=== PATIENT | female | born 1980 | race Caucasian/White ===

== ENCOUNTER 2018-01-15 23:57 | Emergency (ER) | payer MEDICARE, MEDICAID ==
[~2018-01-15] VITALS: Ht 162.6 cm; Wt 54.4 kg
[~2018-01-15 23:57] MED LIST: DESV50TA PO; DVL500TSR PO; PANT40TA PO; QUET400T3 PO; SRTR100T PO; birthcontrol PO
[2018-01-16] MEDS ORDERED: ATOR10TA66 (00:18)
[2018-01-16] MEDS ORDERED: DESV50TA18 (00:18)
[2018-01-16] MEDS ORDERED: ACYC200C (00:18)
[2018-01-16] MEDS ORDERED: TIZA4TAB3 (00:18)
[2018-01-16] MEDS ORDERED: DIVA500T15 (00:18)
[2018-01-16] MEDS ORDERED: NS IV 500 ML 500 ML IV ONE (00:20)
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
[2018-01-16 00:49] LABS: BASOPHILS % (AUTO) 0 % (0-10); EOSINOPHILS % (AUTO) 0 % (0-10); HEMATOCRIT 44 % (35-52); HEMOGLOBIN 15.1 G/DL (11.5-16.0); LYMPHOCYTES # (AUTO) 0.1 X 10^3 (1.0-4.0); LYMPHOCYTES % (AUTO) 1 % (12-44); MEAN CORPUSCULAR HEMOGLOBIN 30 PG (25-34); MEAN CORPUSCULAR HGB CONC 34 G/DL (32-36); MEAN CORPUSCULAR VOLUME 89 FL (80-99); MEAN PLATELET VOLUME 10.6 FL (7.4-10.4); MONOCYTES % (AUTO) 0 % (0-12); NEUTROPHILS # (AUTO) 10.2 X 10^3 (1.8-7.8); NEUTROPHILS % (AUTO) 99 % (42-75); PLATELET COUNT 257 10^3/uL (130-400); RED BLOOD COUNT 4.98 10^6/uL (4.35-5.85); RED CELL DISTRIBUTION WIDTH 12.7 % (10.0-14.5); WHITE BLOOD COUNT 10.3 10^3/uL (4.3-11.0)
[2018-01-16 01:00] LABS: BAND NEUTROPHILS 0 %; BASOPHILS % (MANUAL) 0 %; EOSINOPHILS % (MANUAL) 0 %; LYMPHOCYTES % (MANUAL) 0 %; MONOCYTES % (MANUAL) 1 %; NEUTROPHILS % (MANUAL) 99 %; SMUDGE CELLS SLIGHT; TOXIC GRANULATION/VACUOLAZATIO 1+
[2018-01-16 01:01] LABS: BILIRUBIN,URINE NEGATIVE (NEGATIVE); CLARITY,URINE CLEAR; COLOR,URINE YELLOW; GLUCOSE, URINE (UA) NEGATIVE (NEGATIVE); KETONES,URINE 1+ (NEGATIVE); LEUKOCYTE ESTERASE ,URINE 1+ (NEGATIVE); NITRITE,URINE NEGATIVE (NEGATIVE); PH,URINE 6.5 (5-9); PROTEIN,URINE 2+ (NEGATIVE); UROBILINOGEN,URINE 1 MG/DL (NORMAL)
[2018-01-16 01:06] LABS: BACTERIA,URINE TRACE /HPF; WBC,URINE RARE /HPF
[2018-01-16 01:07] LABS: ALANINE AMINOTRANSFERASE 19 U/L (0-55); ALBUMIN 3.8 GM/DL (3.2-4.5); ALKALINE PHOSPHATASE 65 U/L (40-136); BILIRUBIN,TOTAL 0.4 MG/DL (0.1-1.0); BUN/CREATININE RATIO 22; CALCIUM 9.1 MG/DL (8.5-10.1); CARBON DIOXIDE 23 MMOL/L (21-32); CHLORIDE 106 MMOL/L (98-107); CREATININE SERUM 0.69 MG/DL (0.60-1.30); GFR ESTIMATED > 60; GLUCOSE 116 MG/DL (70-105); POTASSIUM 3.4 MMOL/L (3.6-5.0); SODIUM 139 MMOL/L (135-145); TOTAL PROTEIN 6.5 GM/DL (6.4-8.2)
[2018-01-16 01:21] LABS: AMPHETAMINE SCREEN, URINE POSITIVE (NEGATIVE); BARBITURATE SCREEN URINE NEGATIVE (NEGATIVE); BENZODIAZEPINES SCREEN URINE NEGATIVE (NEGATIVE); CANNABINOID SCREEN, URINE POSITIVE (NEGATIVE); COCAINE SCREEN URINE NEGATIVE (NEGATIVE); METHADONE STAT NEGATIVE (NEGATIVE); METHAMPHETAMINE SCREEN URINE S POSITIVE (NEGATIVE); OPIATE SCREEN URINE NEGATIVE (NEGATIVE); OXYCODONE STAT NEGATIVE (NEGATIVE); PROPOXYPHENE STAT NEGATIVE (NEGATIVE); TRICYCLIC ANTIDEPRESSANTS SCRE NEGATIVE (NEGATIVE)
[2018-01-16 05:00] VITALS: BP 116/80
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
== END 2018-01-16 05:00 | disposition home or self-care (01) ==
LOC: EDUNIT# 23:57 → ER 23:58
DX: T74.21XA Adult sexual abuse, confirmed, initial encounter (principal); R41.82 Altered mental status, unspecified; F12.10 Cannabis abuse, uncomplicated; F31.9 Bipolar disorder, unspecified; F20.9 Schizophrenia, unspecified; F17.210 Nicotine dependence, cigarettes, uncomplicated; Z87.440 Personal history of urinary (tract) infections; Z80.1 Family history of malignant neoplasm of trachea, bronchus and lung; Z80.3 Family history of malignant neoplasm of breast
CPT/HCPCS: 36415; 70450; 72125; 80053; 80306; 80320; 81000; 84703; 85007; 85027; 86141; 96360

== ENCOUNTER → 2018-01-16 | Outpatient (CLI) | payer MEDICARE, MEDICAID ==
[~2018-01-16] MED LIST changes: +ACYC200C; +ATOR10TA66; +DESV50TA18; +DIVA500T15; +TIZA4TAB3
== END ==
LOC: FNS 02:30
PROVIDERS: ATTEND Emergency Medicine
DX: Z02.89 Encounter for other administrative examinations (principal)

== ENCOUNTER 2018-12-22 09:21 | Emergency (ER) | payer MEDICARE, MEDICAID ==
[~2018-12-22] VITALS: Ht 162.6 cm; Wt 54.5 kg
--- OUTSIDE RECORDS SUMMARY | 2018-12-22 09:25 | XMS REPORT | Clinical Summary ---
Author Author [facility] Organization [facility] Address Unknown Phone Unavailable Care Team Providers Care Photo Tech Name Role Phone Hugh Larios PCP Source Comments Some departments are not documenting in the electronic medical record. If you do not see the information that you expected, contact Release of Information in the Health Information Management department at [phone] for further assistance in locating additional records.[facility] Allergies Comments Active Allergy Reactions Severity Noted Date Codeine NAUSEA AND Low 09/30/2017 VOMITING Medications End Date Status Medication Sig Dispensed Refills Start Date Active desvenlafaxine(+) Take 50 mg by 0 (PRISTIQ) 50 mg tablet mouth daily. Active divalproex (DEPAKOTE ER) Take 500 mg 0 500 mg ER tablet by mouth twice daily. Take with food. Active atorvastatin (LIPITOR) 10 Take 10 mg by 0 mg tablet mouth daily. Active tiZANidine (ZANAFLEX) 4 Take 4-8 mg 0 mg tablet by mouth every 4 hours as needed. Active thiamine (VITAMIN B-1) Take 1 tablet 0 100 mg tablet by mouth 7 daily. Active folic acid (FOLVITE) 1 mg Take 1 tablet 30 tablet 1 tablet by mouth 7 daily. Active acyclovir (ZOVIRAX) 200 Take 1 120 capsule 0 mg capsule capsule by 8 mouth every 12 hours. Active MULTIVITAMIN PO Take 1 tablet 0 by mouth. 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 There are numerous juxtacortical, deep white matter, brainstem, and cerebellar white matter lesions, most of which are confluent. At least one new FLAIR hyperintense lesion within the right superior frontal gyrus (series 9 image 15). Diffuse FLAIR hyperintensity of the callosal septal interface. No enhancing lesion is seen. Diffusion-weighted imaging is not indicative of an acute or recent infarct. The major intracranial vascular flow-voids are unremarkable. There is mild mucosal thickening within the left sphenoid and ethmoid sinuses. No midline shift or mass effect. Cervical spine: The examination is limited secondary to repetitive patient motion. There are scattered STIR hyperintense lesions throughout the spinal cord as well as the upper thoracic spinal cord, most pronounced at the level of C3-C4. No definite enhancing lesion is seen. The vertebral body heights are maintained. There is mild degenerative disc disease at C5-C6 with mild degenerative endplate changes and disc space narrowing. The cervical cord is normal in size. L ast Assessment & Plan: She remains very severely disabled. Appears to get some relief from steroids. She will get Lemtrada in 2 weeks. She will receive steroids with the lemtrada on protocol. She needs a new power wheelchair with tilt and recline features to help her with positioning to perform all ADLs and to prevent pressure sores. In addition, she needs a hospital bed for positioning at night to prevent pressure sores. She needs a Van lift to help her get her wheelchair in and out of the van to allow her to leave her home. Moderate malnutrition 09/30/2017 Encounters Care Team Description Date Type Specialty Yudelka Gonsalez PHARMD Medication Management 12/09/2018 Telephone Neurology Juan Antonio Atkins [facility] current use of therapeutic drug; MS (multiple sclerosis) ([facility]) 12/04/2018 Orders Only Neurology from Last 3 Months Family History Medical History Relation Name Comments Cancer Father Cancer Mother Relation Name Status Comments Father Mother Social History Date Tobacco Use Types Packs/Day Years Used Current Every Day Smoker Cigarettes 1 Smokeless Tobacco: Never Used Alcohol Use Drinks/Week oz/Week Comments Yes 2 Shots of 1.2 liquor Sex Assigned at Date Recorded Not on file Industry Job Start Date Occupation Not on file Not on file Not on file Travel End Travel History Travel Start No recent travel history available. 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 Weight 48.7 kg (107 lb 6.4 oz) 12/25/2017 1:21 PM CONTINUING EDUCATION DIRECTOR Height 167.6 cm (5' 6") 12/25/2017 1:21 PM CONTINUING EDUCATION DIRECTOR Body Mass Index 17.33 Plan of Treatment Health Maintenance Due Date Last Done Comments PHYSICAL (COMPREHENSIVE) 1985 EXAM HIV SCREENING 1993 DTAP/TDAP VACCINES (1 - 1996 Tdap) CERVICAL CANCER SCREENING 2008 BREAST CANCER SCREENING 2018 INFLUENZA VACCINE 2018 10/27/2013 Procedures Comments Procedure Name Priority Date/Time Associated Diagnosis CBC AND DIFF Routine 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 use of therapeutic drug MS (multiple sclerosis) (HCC) from Last 3 Months Results * CBC AND DIFF (11/11/2018) White Blood Cells 6.7 [facility] RBC 4.85 [facility] Hemoglobin 14.1 [facility] Hematocrit 42.0 [facility] MCV 87 [facility] MCH 29.1 [facility] MCHC 33.6 [facility] Platelet Count 357 [facility] MPV n/a [facility] RDW 14.2 [facility] Neutrophils 78 [facility] Absolute Neutrophil Count 5.2 [facility] Lymphocytes 12 [facility] Absolute Lymph Count 0.8 [facility] Monocytes 8 [facility] Absolute Monocyte Count 0.5 [facility] Eosinophil 2 [facility] Absolute Eosinophil Count 0.1 [facility] Basophils 0 [facility] Absolute Basophil Count 0.0 [facility] Atypical Lym [facility] Metamyelocyte [facility] Myelocyte [facility] Promyelocyte [facility] Blast [facility] RBC Morph [facility] WBC Morphology [facility] Specimen Blood - Blood Narrative Performed At Performing Organization Address City/State/Zipcode Phone Number [facility] [address] [place] [address] from Last 3 Months Insurance Payer Benefit Subscriber ID Type Phone Address Plan / Group MEDICARE MEDICARE xxxxxxxxxx Medicare PART A AND B Advance Directives Patient has advance care planning documents, and code status on file. For more information, please contact: [facility] [address] [place] [address] Date Inactivated Comments Code Status Date Activated 10/10/2017 5:49 PM Full Code 10/04/2017 2:13 PM Provider has discussed Code Status Yes w/Patient or Family? 10/04/2017 2:13 PM Full Code 09/30/2017 8:45 PM Provider has discussed Code Status Yes w/Patient or Family? 09/30/2017 8:45 PM Full Code 09/30/2017 4:36 PM Provider has discussed Code Status No, more discussion w/Patient or Family? needed
--- OUTSIDE RECORDS SUMMARY | 2018-12-22 09:25 | XMS REPORT ---
Author Author AKILA GONZALEZ Organization [employer] Address Unknown Phone Unavailable Care Team Providers Care Residential Property Tax Appraiser Name Role Phone AKILA GONZALEZ CP Unavailable Allergies No Known Allergies Problems Problem Type Condition ICD-9 Code Onset Dates Condition Status Problem Schizoaffective disorder, unspecified 295.70 Active Problem Nondependent cannabis abuse, unspecified 305.20 Active Problem Borderline personality disorder 301.83 Active Problem Other general counseling and advice for contraceptive management V25.09 Active Problem Encounter for long-term (current) use of other medications V58.69 Active Medications Medication Code System Code Instructions Start Date End Date Status Dosage Daily Value Multivitamin [facility] 2001 40913-21499 Orally Once a day Jun 28, 2015 1 tablet Results No Known Results Summary Purpose [employer] Submission
--- OUTSIDE RECORDS SUMMARY | 2018-12-22 09:25 | XMS REPORT | Encounter Summary ---
Author Author [facility] Organization [facility] Address Unknown Phone Unavailable Care Team Providers Care Forest Examiner Name Role Phone Hugh Larios DO PCP Encounter Details Care Team Description Date Type Department Juan Antonio Atkins intermediate current use of therapeutic drug; MS (multiple sclerosis) (HCC) 12/04/2018 Orders Only [facility] [address] [place] [id number] Social History Date Tobacco Use Types Packs/Day Years Used Current Every Day Smoker Cigarettes 1 Smokeless Tobacco: Never Used Alcohol Use Drinks/Week oz/Week Comments Yes 2 Shots of 1.2 liquor Sex Assigned at Date Recorded Not on file Industry Job Start Date Occupation Not on file Not on file Not on file Travel End Travel History Travel Start No recent travel history available. as of this encounter Functional Status Date of Assessment Functional Status Response 01/09/2018 Does the patient have a hearing impairment: No 01/09/2018 Does the patient have a visual impairment: Yes 01/09/2018 Does the patient have impaired ambulation: Yes 01/09/2018 Does the patient have an activity of daily living Yes (ADL) impairment: 01/09/2018 Does the patient have an instrumental activity of Yes daily living (IADL) impairment: Date of Assessment Cognitive Status Response 01/09/2018 Does the patient have a cognitive impairment: No as of this encounter Plan of Treatment Not on fileas of this encounter Procedures Comments Procedure Name Priority Date/Time Associated Diagnosis CBC AND DIFF Routine 11/11/2018 intermediate current use of therapeutic drug MS (multiple sclerosis) (HCC) in this encounter Results * CBC AND DIFF (11/11/2018) White [...] At Performing Organization Address City/State/Zipcode Phone Number [facility] [address] [place] [address] in this encounter Visit 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
--- OUTSIDE RECORDS SUMMARY | 2018-12-22 09:25 | XMS REPORT ---
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 Active Problem Borderline personality disorder 301.83 Active Assessment Dizziness R42 Active Problem Other general counseling and advice for contraceptive management V25.09 Active Problem Encounter for long-term (current) use of other medications V58.69 Active Medications No Known Medications Procedures Procedure Coding System Code Date Office Visit, Est Pt., Level 2 CPT-4 54267 Oct 11, 2015 Vital Signs Date/Time: Oct 11, 2015 Cardiac Monitoring Heart Rate 88 bpm Weight 139 lbs Height 66 in BMI 22.43 Index Blood Pressure Diastolic 76 mmHg Blood Pressure Systolic 128 mmHg Results No Known Results Summary Purpose [employer] Submission
--- OUTSIDE RECORDS SUMMARY | 2018-12-22 09:25 | XMS REPORT | Encounter Summary ---
Author Author [facility] Organization [facility] Address Unknown Phone Unavailable Care Team Providers Care Head Filter Press Tender Name Role Phone Hugh Larios DO PCP Reason for Visit * Reason Comments Medication Management Encounter Details Care Team Description Date Type Department Yudelka Gonsalez, ESPERANZAD Medication Management 12/09/2018 Telephone [facility] [address] [place] [phone] Social History Date Tobacco Use Types [...] cognitive impairment: No as of this encounter Progress Notes * Yudelka Gonsalez, ESPERANZAD - 12/09/2018 12:12 PM PSYCH THERAPIST Patient due for upcoming Lemtrada infusion (second dose). However, patient has not been seen since last Lemtrada infusion (11/2017), nor does she have an upcoming appointment scheduled. To determine if a second dose of Lemtrada is appropriate, patient needs to be seen in clinic by . Attempted to contact patient multiple times. Patient has not responded to any telephone calls. Will no longer follow up with patient at this time unless patient contacts our clinic. 11/26:no answer, unable to leave voicemail-mailbox full 11/28: no answer, unable to leave voicemail-mailbox full 12/01: no answer; left voicemail 12/03: no answer; left voicemail 12/09:no answer left voicemail Yudelka Gonsalez PHARMD H THERAPIST in this encounter Plan of Treatment Not on fileas of this encounter Visit Diagnoses Not on filein this encounter
--- OUTSIDE RECORDS SUMMARY | 2018-12-22 09:26 | XMS REPORT ---
Author Author AKILA GONZALEZ Organization [employer] Address Unknown Phone Unavailable Care Team Providers Care Minister Of Religion Name Role Phone AKILA GONZALEZ CP Unavailable Allergies No Known Allergies Problems Problem Type Condition Code Onset Dates Condition Status Assessment Pancreatitis K85.9 Active Problem Schizoaffective disorder, unspecified 295.70 Active Problem Nondependent cannabis abuse, unspecified 305.20 Active Problem Borderline personality disorder 301.83 Active Assessment Fall in (into) shower or empty bathtub, initial encounter W18.2XXA Active Assessment Unsteady gait R26.81 Active Problem Other general counseling and advice for contraceptive management V25.09 Active Problem Encounter for long-term (current) use of other medications V58.69 Active Medications No Known Medications Procedures Procedure Coding System Code Date VENIPUNCT, ROUTINE* CPT-4 49993 Oct 04, 2015 COMPREHEN METABOLIC PANEL CPT-4 04061 Oct 04, 2015 Office Visit, Est Pt., Level 2 CPT-4 90263 Oct 04, 2015 ASSAY, DIPROPYLACETIC ACID CPT-4 79287 Oct 04, 2015 COMPLETE CBC W/AUTO DIFF WBC CPT-4 16138 Oct 04, 2015 Vital Signs Date/Time: Oct 04, 2015 Cardiac Monitoring Heart Rate 88 bpm Weight 140 lbs Height 66 in BMI 22.59 Index Blood Pressure Diastolic 84 mmHg Blood Pressure Systolic 120 mmHg Results Name Result Date Reference Range Unit Abnormality Flag ROUTINE VENIPUNCTURE Summary Purpose [employer] Submission
[2018-12-22] MEDS ORDERED: LORazepam INJ 2 MG/ML (ATIVAN) VIAL ONE (09:27)
[2018-12-22 10:06] LABS: BILIRUBIN,URINE 1+ (NEGATIVE); CLARITY,URINE CLEAR; COLOR,URINE AMBER; GLUCOSE, URINE (UA) NEGATIVE (NEGATIVE); KETONES,URINE 3+ (NEGATIVE); LEUKOCYTE ESTERASE ,URINE NEGATIVE (NEGATIVE); NITRITE,URINE NEGATIVE (NEGATIVE); PH,URINE 5 (5-9); PROTEIN,URINE 2+ (NEGATIVE); UROBILINOGEN,URINE 1 MG/DL (NORMAL)
[2018-12-22 10:07] LABS: BASOPHILS % (AUTO) 0 % (0-10); EOSINOPHILS % (AUTO) 0 % (0-10); HEMATOCRIT 40 % (35-52); HEMOGLOBIN 13.3 G/DL (11.5-16.0); LYMPHOCYTES # (AUTO) 0.7 X 10^3 (1.0-4.0); LYMPHOCYTES % (AUTO) 5 % (12-44); MEAN CORPUSCULAR HEMOGLOBIN 29 PG (25-34); MEAN CORPUSCULAR HGB CONC 34 G/DL (32-36); MEAN CORPUSCULAR VOLUME 86 FL (80-99); MEAN PLATELET VOLUME 10.5 FL (7.4-10.4); MONOCYTES # (AUTO) 0.9 X 10^3 (0.0-1.0); MONOCYTES % (AUTO) 6 % (0-12); NEUTROPHILS # (AUTO) 12.5 X 10^3 (1.8-7.8); NEUTROPHILS % (AUTO) 89 % (42-75); PLATELET COUNT 295 10^3/uL (130-400); RED CELL DISTRIBUTION WIDTH 12.9 % (10.0-14.5)
[2018-12-22 10:13] LABS: BACTERIA,URINE TRACE /HPF; WBC,URINE 0-2 /HPF
[2018-12-22 10:21] LABS: AMPHETAMINE SCREEN, URINE POSITIVE (NEGATIVE); BARBITURATE SCREEN URINE NEGATIVE (NEGATIVE); BENZODIAZEPINES SCREEN URINE NEGATIVE (NEGATIVE); CANNABINOID SCREEN, URINE NEGATIVE (NEGATIVE); COCAINE SCREEN URINE NEGATIVE (NEGATIVE); METHADONE STAT NEGATIVE (NEGATIVE); METHAMPHETAMINE SCREEN URINE S POSITIVE (NEGATIVE); OPIATE SCREEN URINE NEGATIVE (NEGATIVE); OXYCODONE STAT NEGATIVE (NEGATIVE); PROPOXYPHENE STAT NEGATIVE (NEGATIVE); TRICYCLIC ANTIDEPRESSANTS SCRE NEGATIVE (NEGATIVE)
[2018-12-22 10:29] LABS: ALANINE AMINOTRANSFERASE 21 U/L (0-55); ALBUMIN 3.6 GM/DL (3.2-4.5); ALKALINE PHOSPHATASE 90 U/L (40-136); BILIRUBIN,TOTAL 0.6 MG/DL (0.1-1.0); BUN/CREATININE RATIO 14; CALCIUM 9.3 MG/DL (8.5-10.1); CARBON DIOXIDE 21 MMOL/L (21-32); CHLORIDE 108 MMOL/L (98-107); CREATINE KINASE 910 U/L (29-168); CREATININE SERUM 0.77 MG/DL (0.60-1.30); GFR ESTIMATED > 60; GLUCOSE 87 MG/DL (70-105); MAGNESIUM 1.6 MG/DL (1.8-2.4); POTASSIUM 3.7 MMOL/L (3.6-5.0); SODIUM 141 MMOL/L (135-145); TOTAL PROTEIN 6.7 GM/DL (6.4-8.2)
[2018-12-22 10:38] LABS: BAND NEUTROPHILS 2 %; BASOPHILS % (MANUAL) 0 %; EOSINOPHILS % (MANUAL) 0 %; LYMPHOCYTES % (MANUAL) 3 %; MONOCYTES % (MANUAL) 4 %; NEUTROPHILS % (MANUAL) 91 %; RBC MORPH NORMAL
[2018-12-22 10:51] LABS: TSH (THYROID ANALYZER) 0.62 UIU/ML (0.35-4.94)
[2018-12-22] MEDS ORDERED: NS IV 1000 ML 1,000 ML IV ONE ×2 (10:58→14:02)
[2018-12-22] MEDS ORDERED: LORazepam INJ 2 MG/ML (ATIVAN) VIAL IVP ONE (11:00)
--- NOTE | 2018-12-22 11:37 | Diagnostic Imaging Report ---
PROCEDURE: CT head and CT cervical spine without contrast. TECHNIQUE: Multiple contiguous axial images were obtained through the brain and cervical spine without the use of intravenous contrast. Sagittal and coronal reformations through the cervical spine were then performed. INDICATION: Fall. Head and neck pain. COMPARISON: CT head and cervical spine without contrast 01/16/2018. FINDINGS: CT HEAD: Examination limited by motion artifact. Mild to moderate generalized cerebral and cerebellar parenchymal volume loss is greater than expected for age. There is also increasing periventricular low attenuation throughout both cerebral hemispheres. This may have progressed since the prior exam in the left temporal lobe. No CT evidence of a territorial infarction. No hydrocephalus or extra-axial fluid collections. No intracranial hemorrhage. No fractures are identified. There is mild mucosal thickening in ethmoid and maxillary sinuses. Small air-fluid level in the right maxillary sinus. The mastoids are clear. CT CERVICAL SPINE: Normal alignment. Vertebral body heights preserved. Moderate degenerative endplate changes. No fractures. No high-grade spinal canal narrowing is evident on this non-intrathecal contrast exam. The visualized paravertebral soft tissues are unremarkable. IMPRESSION: 1. No intracranial hemorrhage. 2. No cervical spine fractures. 3. Low attenuation changes in the deep white matter are compatible with reported history of multiple sclerosis. These may have progressed in the left temporal lobe since prior exam. This could be better evaluated with MRI. 4. Mild mucosal thickening in the ethmoid and maxillary sinuses. There is also a small air-fluid level in the right maxillary sinus. No maxillofacial fractures are identified on this nondedicated exam. If there is a concern for a facial fracture, recommend dedicated maxillofacial CT. Dictated by: Dictated on workstation # [id number]
[2018-12-22] MEDS ORDERED: fentaNYL INJECTION 100 MCG/2 ML AMP ONE (12:00)
[2018-12-22] MEDS ORDERED: NS 250 ML (IVPB) BAG IV ONE (12:00)
[2018-12-22] MEDS ORDERED: IOHEXOL 350 MG/ML 100 ML (OMNIPAQUE 350) VIAL IV ONE (12:00)
[2018-12-22] MEDS ORDERED: RECEIVED CONTRAST (Hold Metformin) IV SCH (12:00)
[2018-12-22] MEDS ORDERED: fentaNYL INJECTION 100 MCG/2 ML AMP IVP ONE (12:15)
--- NOTE | 2018-12-22 12:49 | Diagnostic Imaging Report ---
PROCEDURE: CT chest, abdomen, and pelvis with contrast. TECHNIQUE: Multiple contiguous axial images were obtained through the chest, abdomen, and pelvis after the administration of intravenous contrast. INDICATION: Fall with pain. COMPARISON: 08/09/2014. FINDINGS: CHEST: There are nodular infiltrates bilaterally involving the right middle and right greater than left lower lobes. There is some regional bronchial wall thickening. The findings suggest atypical infection such as mycobacteria or infectious bronchiolitis. No gloria alveolar lobar consolidation. There is no evidence for abscess or empyema. There were no findings of lung contusion or pulmonary laceration. The aorta is intact. There is no mediastinal hematoma and no thoracic adenopathy. The sternum and manubrium are intact. No fracture deformity is identified. ABDOMEN/PELVIS: There is no hemoperitoneum. There are no findings of solid or hollow visceral injury. The liver, spleen, gallbladder, adrenals, and pancreas are unremarkable. The unobstructed kidneys appear unremarkable. There is no evidence for organ laceration or contusion. The reconstruction views reveal the thoracolumbar body heights to be maintained and the alignment is anatomic. The osseous structures of the pelvis are intact. There is no contrast extravasation. No pneumatosis or free gas. There is colonic constipation. The urinary bladder is decompressed around a Chambers with no urinary contrast extravasation. IMPRESSION: 1. No findings of thoracic abdominal or pelvic post traumatic sequelae. 2. Patchy bilateral nodular pulmonary infiltrates as discussed. The chest is otherwise unremarkable. 3. The abdominal/pelvic portion reveals constipation without hemorrhage, fracture, obstruction, inflammatory process, or acute/post traumatic sequelae. Dictated by: Dictated on workstation # [id number]
[2018-12-22] MEDS ORDERED: AZITHROMYCIN INJECTION 500 MG in NS (IVPB) 250 ML IV ONE (13:30)
[2018-12-22] MEDS ORDERED: cefTRIAXone FOR IV USE 1,000 MG in WATER (STERILE) FOR INJECTION 10 ML IV ONE (13:30)
[2018-12-22] MEDS ORDERED: D5 NS 1000 ML IV SOLUTION 1,000 ML IV SCH (14:15)
--- NOTE | 2018-12-22 14:24 | ED General ---
General Chief Complaint: General Problems/Pain Stated Complaint: FALL Nursing Triage Note: PT BROUGHT IN BY EMS WITH COMPLAINT OF MULTIPLE FALLS, INCREASING FALLS, AND INCREASING PAIN. PT FELL LAST NIGHT AND HIT FACE. PT HAS MS, BUT DOES NOT TAKE MEDS. PT USES METH AND MARIJUANA. Nursing Sepsis Screen: No Definite Risk Source of Information: Patient, EMS, Family, Old Records Exam Limitations: No Limitations History of Present Illness Date Seen by Provider: Dec 22, 2018 Time Seen by Provider: 09:22 Initial Comments This 38-year-old woman is brought to the emergency room via EMS because of increasing falls over the past few days. She has MS and falls frequently according to her . She also complains of pain over her left hip. Patient reportedly fell last night and struck her face. She has bilateral "black eyes". Patient also reportedly and admittedly uses methamphetamines and marijuana. She and her have used recently. Patient is notably tachycardic. She seems irritable on exam. reports her sluggish and slurred speech is her baseline due to MS. Patient is noted to have numerous small faint scattered bruises. Allergies and Home Medications Allergies Coded Allergies: No Known Drug Allergies (Unverified , 04/26/12) Patient Home Medication List Home Medication List Reviewed: Yes Review of Systems Review of Systems Constitutional: no symptoms reported EENTM: see HPI Respiratory: no symptoms reported Cardiovascular: see HPI Gastrointestinal: no symptoms reported Genitourinary: no symptoms reported : No Musculoskeletal: see HPI Skin: see HPI Psychiatric/Neurological: See HPI Hematologic/Lymphatic: No Symptoms Reported Immunological/Allergic: no symptoms reported Past Owbkblv-Axijgk-Ilwwcg Hx Past Med/Social Hx: Reviewed and Corrections made Patient Social History Alcohol Use: Denies Use Recreational Drug Use: Yes (SMOKES 1/2 PPD) Drug of Choice: MARIJUANA, METH Smoking Status: Current Everyday Smoker Type Used: Cigarettes Recent Foreign Travel: No Contact w/Someone Who Travel: No Recent Infectious Disease Expo: No Immunizations Up To Date Tetanus Booster (TDap): Less than 5yrs Seasonal Allergies Seasonal Allergies: No Past Medical History Surgeries: Yes (l shoulder) Respiratory: Yes (snorts methamphetamines, smokes marijuana) Cardiac: No Neurological: Yes Multiple Sclerosis (with speech and motor deficits) Reproductive Disorders: No Genitourinary: No UTI-Chronic Gastrointestinal: Yes Pancreatitis Musculoskeletal: No (WRIST WHEN YOUNGER) Fractures Endocrine: No HEENT: No Cancer: No Psychosocial: Yes Bipolar, Schizophrenia Integumentary: Yes (ACNE CAUSED BY MIRENA IUD) Blood Disorders: No Adverse Reaction/Blood Tranf: No Family Medical History Cancer (LUNG) 03 FATHER, Onset:Unknown (LUNG) PATERNAL GRANDMOTHER, Onset:Unknown (BREAST) Visual impairment MATERNAL GRANDMOTHER, Onset:Unknown (MACULAR DEGENERATION) Physical Exam Vital Signs Vital Signs - First Documented 12/22/18 09:24 Temp 98.1 Pulse 126 Resp 20 B/P (MAP) 116/98 (104) Pulse Ox 95 O2 Delivery Room Air Capillary Refill : Less Than 3 Seconds Height, Weight, BMI Height: 5'4.00" Weight: 120lbs. 0.8oz. [id number]; 16.2 BMI Method:Stated General Appearance: WD/WN, Mild Distress, Thin HEENT: PERRL/EOMI, Other (mucous membranes are very dry. Dark ecchymosis of the eyelids and periorbital region bilaterally) Neck: Normal Inspection, Non Tender Respiratory: Lungs Clear, Normal Breath Sounds, No Accessory Muscle Use, No Respiratory Distress Cardiovascular: No Edema, No Murmur, Tachycardia Gastrointestinal: Non Tender, Soft Back: Normal Inspection, No Vertebral Tenderness Extremity: Normal Capillary Refill, Other (tenderness over the greater trochanter of the left hip. Patient prefers thighs flexed in the position. Scattered bruising noted on the extremities) Neurologic/Psychiatric: Alert, Oriented x3, Other (patient is irritable. She has speech and motor deficits due to MS. She has hypersensitivity to stimulus and is having difficulty being still for assessment, IV, etc.) Skin: Normal Color, Warm/Dry, Ecchymosis, Other (scattered ecchymosis. There are a few scabbed areas on the buttocks) Focused Exam Lactate Level 12/22/18 14:06: Lactic Acid Level 0.83 Lactic Acid Level Laboratory Tests Test 12/22/18 14:06 Lactic Acid Level 0.83 MMOL/L (0.50-2.00) Progress/Results/Core Measures Suspected Sepsis Recent Fever Within 48 Hours: No Infection Criteria Present: None New/Unexplained Altered Menta: No Sepsis Screen: No Definite Risk SIRS Temperature:98.1 Pulse: 126 Respiratory Rate: 20 Laboratory Tests 12/22/18 10:02: White Blood Count 14.0H Blood Pressure 116 /98 Mean: 104 12/22/18 14:06: Lactic Acid Level 0.83 Laboratory Tests 12/22/18 10:02: Creatinine 0.77, Platelet Count 295, Total Bilirubin 0.6 Results/Orders Lab Results Laboratory Tests Test 12/22/18 10:02 12/22/18 14:03 12/22/18 14:06 12/22/18 14:13 Range/Units White Blood Count 14.0 H 4.3-11.0 10^3/uL Red Blood Count 4.61 4.35-5.85 10^6/uL Hemoglobin 13.3 11.5-16.0 G/DL Hematocrit 40 35-52 % Mean Corpuscular Volume 86 80-99 FL Mean Corpuscular Hemoglobin 29 25-34 PG Mean Corpuscular Hemoglobin Concent 34 32-36 G/DL Red Cell Distribution Width 12.9 10.0-14.5 % Platelet Count 295 130-400 10^3/uL Mean Platelet Volume 10.5 H 7.4-10.4 FL Neutrophils (%) (Auto) 89 H 42-75 % Lymphocytes (%) (Auto) 5 L 12-44 % Monocytes (%) (Auto) 6 0-12 % Eosinophils (%) (Auto) 0 0-10 % Basophils (%) (Auto) 0 0-10 % Neutrophils # (Auto) 12.5 H 1.8-7.8 X 10^3 Lymphocytes # (Auto) 0.7 L 1.0-4.0 X 10^3 Monocytes # (Auto) 0.9 0.0-1.0 X 10^3 Eosinophils # (Auto) 0.0 0.0-0.3 10^3/uL Basophils # (Auto) 0.0 0.0-0.1 10^3/uL Neutrophils % (Manual) 91 % Lymphocytes % (Manual) 3 % Monocytes % (Manual) 4 % Eosinophils % (Manual) 0 % Basophils % (Manual) 0 % Band Neutrophils 2 % Blood Morphology Comment NORMAL Urine Color KARYNA H Urine Clarity CLEAR Urine pH 5 5-9 Urine Specific [place] 1.025 H 1.016-1.022 Urine Protein 2+ H NEGATIVE Urine Glucose (UA) NEGATIVE NEGATIVE Urine Ketones 3+ H NEGATIVE Urine Nitrite NEGATIVE NEGATIVE Urine Bilirubin 1+ H NEGATIVE Urine Urobilinogen 1 NORMAL MG/DL Urine Leukocyte Esterase NEGATIVE NEGATIVE Urine RBC (Auto) NEGATIVE NEGATIVE Urine RBC NONE /HPF Urine WBC 0-2 /HPF Urine Squamous Epithelial Cells 2-5 /HPF Urine Crystals NONE /LPF Urine Bacteria TRACE /HPF Urine Casts NONE /LPF Urine Mucus MODERATE H /LPF Urine Culture Indicated NO Sodium Level 141 135-145 MMOL/L Potassium Level 3.7 3.6-5.0 MMOL/L Chloride Level 108 H 98-107 MMOL/L Carbon Dioxide Level 21 21-32 MMOL/L Anion Gap 12 5-14 MMOL/L Blood Urea Nitrogen 11 7-18 MG/DL Creatinine 0.77 0.60-1.30 MG/DL Estimat Glomerular Filtration Rate > 60 BUN/Creatinine Ratio 14 Glucose Level 87 70-105 MG/DL Calcium Level 9.3 8.5-10.1 MG/DL Corrected Calcium 9.6 8.5-10.1 MG/DL Magnesium Level 1.6 L 1.8-2.4 MG/DL Total Bilirubin 0.6 0.1-1.0 MG/DL Aspartate Amino Transf (AST/SGOT) 26 5-34 U/L Alanine Aminotransferase (ALT/SGPT) 21 0-55 U/L Alkaline Phosphatase 90 40-136 U/L Total Creatine Kinase 910 H 29-168 U/L Total Protein 6.7 6.4-8.2 GM/DL Albumin 3.6 3.2-4.5 GM/DL TSH [place] Testing 0.62 0.35-4.94 UIU/ML Urine Opiates Screen NEGATIVE NEGATIVE Urine Oxycodone Screen NEGATIVE NEGATIVE Urine Methadone Screen NEGATIVE NEGATIVE Urine Propoxyphene Screen NEGATIVE NEGATIVE Urine Barbiturates Screen NEGATIVE NEGATIVE Ur Tricyclic Antidepressants Screen NEGATIVE NEGATIVE Urine Phencyclidine Screen NEGATIVE NEGATIVE Urine Amphetamines Screen POSITIVE H NEGATIVE Urine Methamphetamines Screen POSITIVE H NEGATIVE Urine Benzodiazepines Screen NEGATIVE NEGATIVE Urine Cocaine Screen NEGATIVE NEGATIVE Urine Cannabinoids Screen NEGATIVE NEGATIVE Serum Alcohol < 10 <10 MG/DL Glucometer 71 70-110 MG/DL Lactic Acid Level 0.83 0.50-2.00 MMOL/L Valproic Acid (Depakene) Level < 2.0 L 50.0-100.0 UG/ML My Orders Orders - STEPHANIE WOODWARD MD Lorazepam Injection (Ativan Injection) (12/22/18 09:27) Alcohol (12/22/18 09:37) Cbc With Automated Diff (12/22/18 09:37) Comprehensive Metabolic Panel (12/22/18 09:37) Creatine Kinase (12/22/18 09:37) Drug Screen Stat (Urine) (12/22/18 09:37) Magnesium (12/22/18 09:37) Thyroid Analyzer (12/22/18 09:37) Ua Culture If Indicated (12/22/18 09:37) Saline Lock/Iv-Start (12/22/18 09:37) Ct Head/Cervical Spine Wo (12/22/18 09:37) Manual Differential (12/22/18 10:02) Saline Lock/Iv-Start (12/22/18 10:58) Ns Iv 1000 Ml (Sodium Chloride 0.9%) (12/22/18 10:58) Lorazepam Injection (Ativan Injection) (12/22/18 11:00) Ct Chest/Abdomen/Pelvis W (12/22/18 10:58) Iohexol Injection (Omnipaque 350 Mg/Ml 1 (12/22/18 12:00) Di Iv Start (Assessment) .IV start (12/22/18 11:48) Contrast Received (Contrast Received) (12/22/18 12:00) Ns (Ivpb) (Sodium Chloride 0.9%) (12/22/18 12:00) Fentanyl Injection (Sublimaze Injection (12/22/18 12:00) Fentanyl Injection (Sublimaze Injection (12/22/18 12:15) Blood Culture (12/22/18 13:24) Lactic Acid Analyzer (12/22/18 13:24) Ceftriaxone For Iv Use (Rocephin For I (12/22/18 13:30) Azithromycin Injection (Zithromax Inject (12/22/18 13:30) Valproic Acid (12/22/18 13:31) Saline Lock/Iv-Start (12/22/18 14:02) Ns Iv 1000 Ml (Sodium Chloride 0.9%) (12/22/18 14:02) D5 Ns 1000 Ml Iv Solution (Dextrose 5%/0 (12/22/18 14:15) Accucheck Stat ONCE (12/22/18 14:07) Medications Given in ED Current Medications Medications Dose Ordered Sig/Vincent Route Start Time Stop Time Status Last Admin Dose Admin Azithromycin 500 mg/Sodium Chloride 250 ml @ 250 mls/hr ONCE ONCE IV 12/22/18 13:30 12/22/18 14:29 DC 12/22/18 14:25 250 MLS/HR Ceftriaxone Sodium 1000 mg/ Sterile Water 10 ml @ 200 mls/hr ONCE ONCE IV 12/22/18 13:30 12/22/18 13:32 DC 12/22/18 14:22 200 MLS/HR Fentanyl Citrate 50 mcg ONCE ONCE IVP 12/22/18 12:15 12/22/18 12:16 DC 12/22/18 12:05 50 MCG Lorazepam 1 mg ONCE ONCE IVP 12/22/18 11:00 12/22/18 11:01 DC 12/22/18 11:10 1 MG Lorazepam 2 mg STK-MED ONCE .ROUTE 12/22/18 09:27 12/22/18 09:33 DC 12/22/18 09:30 1 MG Sodium Chloride 1,000 ml @ 0 mls/hr Q0M ONCE IV 12/22/18 10:58 12/22/18 14:07 DC 12/22/18 11:10 1,000 MLS/HR Vital Signs/I&O 12/22/18 09:24 Temp 98.1 Pulse 126 Resp 20 B/P (MAP) 116/98 (104) Pulse Ox 95 O2 Delivery Room Air Capillary Refill : Less Than 3 Seconds Blood Pressure Mean: 104 Progress Note : Progress Note Patient was seen and assessed upon arrival. Initial assessment was difficult as patient was irritable and would not be still for exam. 2 doses of Ativan 1 mg IV were administered to help control her behavior for CT scans. Patient removed 2 IVs and access had to be reestablished. CT of the head and C-spine and CT of the chest, abdomen and pelvis with contrast were obtained. No acute injuries were identified. Patient did have infiltrates on the CT of the chest suggestive of atypical pneumonia. Blood culture and lactic acid were obtained. Patient was treated with Rocephin and azithromycin. She was also found to have rhabdomyolysis. 2 L of IV normal saline were infused. Patient became more somnolent during the latter half of her ER stay. Fingerstick blood sugar was found in the 70s. A third liter of IV fluid was started using D5 normal saline to help maintain blood sugar. Ultimately, patient required transfer because of bed availability at [facility]. She elected [facility] although there was some debate about this between the patient and her as she has received much of her care at [facility]. also at one point wanted her transferred to due to multiple sclerosis. Based on her current condition and her knees, I could not justify transferring to over a closer facility. Patient's vital signs remained stable. Her tachycardia improved. She became rather somnolent before discharge but was alert to voice. Fentanyl was given before CT scan to control pain. Patient was prepared for admission to [facility]. However, discharges did not come through in a timely fashion and bed availability was uncertain. Patient was ultimately transferred to [facility]. Diagnostic Imaging Diagonstic Imaging: CT Plain Films/CT/US/NM/MRI: c-spine, head Comments CT head and cervical spine viewed by me and report reviewed. See report below: NAME: KRISTIE GRIMALDO MED REC#: [id number] PT STATUS: REG ER : 1980 PHYSICIAN: STEPHANIE WOODWARD MD ADMIT DATE: 12/22/18/ER Draft Date of Exam:12/22/18 CT HEAD/CERVICAL SPINE WO PROCEDURE: CT head and CT cervical spine without contrast. TECHNIQUE: Multiple contiguous axial images were obtained through the brain and cervical spine without the use of intravenous contrast. Sagittal and coronal reformations through the cervical spine were then performed. INDICATION: Fall. Head and neck pain. COMPARISON: CT head and cervical spine without contrast 01/16/2018. FINDINGS: CT HEAD: Examination limited by motion artifact. Mild to moderate generalized cerebral and cerebellar parenchymal volume loss is greater than expected for age. There is also increasing periventricular low attenuation throughout both cerebral hemispheres. This may have progressed since the prior exam in the left temporal lobe. No CT evidence of a territorial infarction. No hydrocephalus or extra-axial fluid collections. No intracranial hemorrhage. No fractures are identified. There is mild mucosal thickening in ethmoid and maxillary sinuses. Small air-fluid level in the right maxillary sinus. The mastoids are clear. CT CERVICAL SPINE: Normal alignment. Vertebral body heights preserved. Moderate degenerative endplate changes. No fractures. No high-grade spinal canal narrowing is evident on this non-intrathecal contrast exam. The visualized paravertebral soft tissues are unremarkable. IMPRESSION: 1. No intracranial hemorrhage. 2. No cervical spine fractures. 3. Low attenuation changes in the deep white matter are compatible with reported history of multiple sclerosis. These may have progressed in the left temporal lobe since prior exam. This could be better evaluated with MRI. 4. Mild mucosal thickening in the ethmoid and maxillary sinuses. There is also a small air-fluid level in the right maxillary sinus. No maxillofacial fractures are identified on this nondedicated exam. If there is a concern for a facial fracture, recommend dedicated maxillofacial CT. Dictated on workstation # [id number] Dict: 12/22/18 1120 Trans: 12/22/18 1136 [id number] Interpreted by: PAWEL CAMPOS MD Diagonstic Imaging: CT Plain Films/CT/US/NM/MRI: chest, abdomen, pelvis Comments CT chest, abdomen and pelvis viewed by me and report reviewed. See report below : NAME: KRISTIE GRIMALDO [facility] REC#: [id number] PT STATUS: REG ER : 1980 PHYSICIAN: STEPHANIE WOODWARD MD ADMIT DATE: 12/22/18/ER Draft Date of Exam:12/22/18 CT CHEST/ABDOMEN/PELVIS W PROCEDURE: CT chest, abdomen, and pelvis with contrast. TECHNIQUE: Multiple contiguous axial images were obtained through the chest, abdomen, and pelvis after the administration of intravenous contrast. INDICATION: Fall with pain. COMPARISON: 08/09/2014. FINDINGS: CHEST: There are nodular infiltrates bilaterally involving the right middle and right greater than left lower lobes. There is some regional bronchial wall thickening. The findings suggest atypical infection such as mycobacteria or infectious bronchiolitis. No gloria alveolar lobar consolidation. There is no evidence for abscess or empyema. There were no findings of lung contusion or pulmonary laceration. The aorta is intact. There is no mediastinal hematoma and no thoracic adenopathy. The sternum and manubrium are intact. No fracture deformity is identified. ABDOMEN/PELVIS: There is no hemoperitoneum. There are no findings of solid or hollow visceral injury. The liver, spleen, gallbladder, adrenals, and pancreas are unremarkable. The unobstructed kidneys appear unremarkable. There is no evidence for organ laceration or contusion. The reconstruction views reveal the thoracolumbar body heights to be maintained and the alignment is anatomic. The osseous structures of the pelvis are intact. There is no contrast extravasation. No pneumatosis or free gas. There is colonic constipation. The urinary bladder is decompressed around a Chambers with no urinary contrast extravasation. IMPRESSION: 1. No findings of thoracic abdominal or pelvic post traumatic sequelae. 2. Patchy bilateral nodular pulmonary infiltrates as discussed. The chest is otherwise unremarkable. 3. The abdominal/pelvic portion reveals constipation without hemorrhage, fracture, obstruction, inflammatory process, or acute/post traumatic sequelae. Dictated on workstation # [id number] Dict: 12/22/18 1240 Trans: 12/22/18 1249 [id number] Interpreted by: DRE HERNANDEZ Departure Impression Primary Impression: Sepsis Qualified Codes: A41.9 - Sepsis, unspecified organism Additional Impressions: Atypical pneumonia Methamphetamine abuse Frequent falls Rhabdomyolysis Qualified Codes: M62.82 - Rhabdomyolysis Multiple sclerosis Disposition: XF SHT-TRM HOSP Condition: Improved Transfer Time Spoke to Accepting Phy: 14:10 Transfer Progress Notes Patient accepted by Dr. Valentine in the emergency room at [facility]. Transfer Facility: [facility] Method of Transfer: EMS Departure-Patient Inst. Decision time for Depature: 14:50 Referrals: MARICRUZ VENTURA DO (PCP/Family) Primary Care Physician STEPHANIE WOODWARD MD Dec 22, 2018 14:24
[2018-12-22 14:50] VITALS: BP 143/107
== END 2018-12-22 14:50 | disposition short-term general hospital (02) ==
LOC: EDUNIT# 09:21 → ER 09:22
DX: A41.9 Sepsis, unspecified organism (principal); J18.9 Pneumonia, unspecified organism; G35 Multiple sclerosis; R29.6 Repeated falls; M62.82 Rhabdomyolysis; F20.9 Schizophrenia, unspecified; F31.9 Bipolar disorder, unspecified; F15.10 Other stimulant abuse, uncomplicated; F12.10 Cannabis abuse, uncomplicated; F17.210 Nicotine dependence, cigarettes, uncomplicated; Z97.5 Presence of (intrauterine) contraceptive device; Z80.1 Family history of malignant neoplasm of trachea, bronchus and lung; Z80.3 Family history of malignant neoplasm of breast; Z87.440 Personal history of urinary (tract) infections; Z87.19 Personal history of other diseases of the digestive system; Z91.81 History of falling
CPT/HCPCS: 36415; 51702; 70450; 71260; 72125; 74177; 80053; 80164; 80306; 80320; 81000; 82550; 82962; 83605; 83735; 84443; 85007; 85027; 87040; 96361; 96365; 96375; 96376

== ENCOUNTER 2019-06-15 15:06 | Observation (INO) | payer MEDICAID, MEDICARE ==
[~2019-06-15] VITALS: Ht 162.6 cm; Wt 43.6 kg
[~2019-06-15 15:06] MED LIST changes: -TIZA4TAB3; +TIZA4TAB4
--- NOTE | 2019-06-15 15:12 | NUR ---
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
[2019-06-15 15:42] LABS: BASOPHILS % (AUTO) 1 % (0-10); EOSINOPHILS # (AUTO) 0.1 10^3/uL (0.0-0.3); EOSINOPHILS % (AUTO) 2 % (0-10); HEMATOCRIT 42 % (35-52); HEMOGLOBIN 13.8 G/DL (11.5-16.0); LYMPHOCYTES % (AUTO) 19 % (12-44); MEAN CORPUSCULAR HEMOGLOBIN 28 PG (25-34); MEAN CORPUSCULAR HGB CONC 33 G/DL (32-36); MEAN CORPUSCULAR VOLUME 84 FL (80-99); MEAN PLATELET VOLUME 10.1 FL (7.4-10.4); MONOCYTES # (AUTO) 0.5 X 10^3 (0.0-1.0); MONOCYTES % (AUTO) 9 % (0-12); NEUTROPHILS # (AUTO) 3.8 X 10^3 (1.8-7.8); NEUTROPHILS % (AUTO) 70 % (42-75); PLATELET COUNT 298 10^3/uL (130-400); RED CELL DISTRIBUTION WIDTH 13.7 % (10.0-14.5); WHITE BLOOD COUNT 5.5 10^3/uL (4.3-11.0)
[2019-06-15 15:53] LABS: ALANINE AMINOTRANSFERASE 21 U/L (0-55); ALBUMIN 3.8 GM/DL (3.2-4.5); ALKALINE PHOSPHATASE 66 U/L (40-136); BILIRUBIN,TOTAL 0.4 MG/DL (0.1-1.0); BUN/CREATININE RATIO 18; CALCIUM 8.7 MG/DL (8.5-10.1); CARBON DIOXIDE 23 MMOL/L (21-32); CHLORIDE 109 MMOL/L (98-107); CREATININE SERUM 0.67 MG/DL (0.60-1.30); GFR ESTIMATED > 60; GLUCOSE 89 MG/DL (70-105); POTASSIUM 3.6 MMOL/L (3.6-5.0); SODIUM 140 MMOL/L (135-145); TOTAL PROTEIN 6.2 GM/DL (6.4-8.2)
--- NOTE | 2019-06-15 18:51 | ED General ---
General Chief Complaint: General Problems/Pain Stated Complaint: WELLNESS CHECK Nursing Triage Note: PT PRESENTS TO THE ED VIA EMS, EMS CONTACTED BY BYSTANDER FOR A WELFARE CHECK. PT LIVES AT HOME ALONE WITH MULTIPLE SCLEROSIS AND LIVES IN UNACCEPTABLE LIVING CONDITIONS. Nursing Sepsis Screen: No Definite Risk Source of Information: Patient Exam Limitations: No Limitations (STEPHANIE WOODWARD MD) History of Present Illness Date Seen by Provider: Jun 15, 2019 Time Seen by Provider: 15:06 Initial Comments This 39-year-old woman with multiple sclerosis presents to the emergency room via EMS at the request of [place] police. Patient's aunt, Corry Hairston, who lives in [place] contacted the police department today for a welfare check as she was not able to get in touch with the patient or her common-law , Cy Victor. Police were apparently very concerned about the very poor living conditions and asked EMS to transport patient to the ER. They stated they would be reporting to DCF. Patient has no physical complaints. She has chronic debility from EMS. She is alert and very clearly states that she does not want to be in the emergency room. She wishes to return home and states that she feels safe there. She did consent to basic blood work screening. All she really wants to do is have a cigarette and returned home. She requested I contacted Cy to take her home but I have been unable to do so. Patient and her are known to me from prior visits. They do have a history of methamphetamine abuse, but patient denies any recent use. (STEPHANIE WOODWARD MD) Allergies and Home Medications Allergies Coded Allergies: No Known Drug Allergies (Unverified , 04/26/12) Patient Home Medication List Home Medication List Reviewed: Yes (STEPHANIE WOODWARD MD) Review of Systems Review of Systems Constitutional: see HPI, weakness (chronic debility secondary to MS) EENTM: no symptoms reported Respiratory: no symptoms reported Cardiovascular: no symptoms reported Gastrointestinal: no symptoms reported Genitourinary: no symptoms reported : No Musculoskeletal: see HPI Skin: no symptoms reported Psychiatric/Neurological: See HPI Hematologic/Lymphatic: No Symptoms Reported Immunological/Allergic: no symptoms reported (STEPHANIE WOODWARD MD) Past Ddgheuo-Gnvlrf-Siclja Hx Past Med/Social Hx: Reviewed and Corrections made (STEPHANIE WOODWARD MD) Patient Social History Alcohol Use: Occasionally Uses Alcohol Beverage of Choice: Beer Recreational Drug Use: Yes (SMOKES 1/2 PPD) Drug of Choice: MARIJUANA, METH Smoking Status: Current Everyday Smoker Type Used: Cigarettes 2nd Hand Smoke Exposure: Yes Recent Foreign Travel: No Contact w/Someone Who Travel: No Recent Infectious Disease Expo: No (STEPHANIE WOODWARD MD) Immunizations Up To Date Tetanus Booster (TDap): Less than 5yrs PED Vaccines UTD: Yes (STEPHANIE WOODWARD MD) Seasonal Allergies Seasonal Allergies: No (STEPHANIE WOODWARD MD) Past Medical History Surgeries: Yes (l shoulder) Respiratory: Yes (snorts methamphetamines, smokes marijuana) Cardiac: No Neurological: Yes Multiple Sclerosis : No Reproductive Disorders: No Genitourinary: No UTI-Chronic Gastrointestinal: Yes Pancreatitis Musculoskeletal: No (WRIST WHEN YOUNGER) Fractures Endocrine: No HEENT: No Cancer: No Psychosocial: Yes Bipolar, Schizophrenia Integumentary: Yes (ACNE CAUSED BY MIRENA IUD) Blood Disorders: No Adverse Reaction/Blood Tranf: No (STEPHANIE WOODWARD MD) Family Medical History Cancer (LUNG) 03 FATHER, Onset:Unknown (LUNG) PATERNAL GRANDMOTHER, Onset:Unknown (BREAST) Visual impairment MATERNAL GRANDMOTHER, Onset:Unknown (MACULAR DEGENERATION) Physical Exam Vital Signs Vital Signs - First Documented 06/15/19 15:12 Temp 97.9 Pulse 104 Resp 20 B/P (MAP) 159/104 (122) Pulse Ox 96 O2 Delivery Room Air (ELEAZAR HYMAN) Vital Signs Capillary Refill : Less Than 3 Seconds (STEPHANIE WOODWARD MD) Height, Weight, BMI Height: 5'4.00" Weight: 120lbs. 0.8oz. [id number]; 16.2 BMI Method:Stated General Appearance: No Apparent Distress, WD/WN, Thin HEENT: PERRL/EOMI, Normal ENT Inspection Neck: Normal Inspection Respiratory: Lungs Clear, Normal Breath Sounds, No Accessory Muscle Use, No Respiratory Distress Cardiovascular: Regular Rate, Rhythm, No Edema, No Murmur Gastrointestinal: Normal Bowel Sounds, Non Tender, Soft Extremity: Normal Inspection, No Pedal Edema Neurologic/Psychiatric: Alert, Oriented x3, Other (chronic weakness and deficits secondary to MS. Labile emotions. Irritable.) Skin: Normal Color, Warm/Dry (STEPHANIE WOODWARD MD) Progress/Results/Core Measures Suspected Sepsis Recent Fever Within 48 Hours: No Infection Criteria Present: None New/Unexplained Altered Menta: No Sepsis Screen: No Definite Risk SIRS Temperature:97.9 Pulse: 104 Respiratory Rate: 20 Laboratory Tests 06/15/19 15:20: White Blood Count 5.5 Blood Pressure 159 /104 Mean: 122 Laboratory Tests 06/15/19 15:20: Creatinine 0.67, Platelet Count 298, Total Bilirubin 0.4 (STEPHANIE WOODWARD MD) Results/Orders Lab Results Laboratory Tests Test 06/15/19 15:20 Range/Units White Blood Count 5.5 4.3-11.0 10^3/uL Red Blood Count 4.94 4.35-5.85 10^6/uL Hemoglobin 13.8 11.5-16.0 G/DL Hematocrit 42 35-52 % Mean Corpuscular Volume 84 80-99 FL Mean Corpuscular Hemoglobin 28 25-34 PG Mean Corpuscular Hemoglobin Concent 33 32-36 G/DL Red Cell Distribution Width 13.7 10.0-14.5 % Platelet Count 298 130-400 10^3/uL Mean Platelet Volume 10.1 7.4-10.4 FL Neutrophils (%) (Auto) 70 42-75 % Lymphocytes (%) (Auto) 19 12-44 % Monocytes (%) (Auto) 9 0-12 % Eosinophils (%) (Auto) 2 0-10 % Basophils (%) (Auto) 1 0-10 % Neutrophils # (Auto) 3.8 1.8-7.8 X 10^3 Lymphocytes # (Auto) 1.0 1.0-4.0 X 10^3 Monocytes # (Auto) 0.5 0.0-1.0 X 10^3 Eosinophils # (Auto) 0.1 0.0-0.3 10^3/uL Basophils # (Auto) 0.0 0.0-0.1 10^3/uL Sodium Level 140 135-145 MMOL/L Potassium Level 3.6 3.6-5.0 MMOL/L Chloride Level 109 H 98-107 MMOL/L Carbon Dioxide Level 23 21-32 MMOL/L Anion Gap 8 5-14 MMOL/L Blood Urea Nitrogen 12 7-18 MG/DL Creatinine 0.67 0.60-1.30 MG/DL Estimat Glomerular Filtration Rate > 60 BUN/Creatinine Ratio 18 Glucose Level 89 70-105 MG/DL Calcium Level 8.7 8.5-10.1 MG/DL Corrected Calcium 8.9 8.5-10.1 MG/DL Total Bilirubin 0.4 0.1-1.0 MG/DL Aspartate Amino Transf (AST/SGOT) 16 5-34 U/L Alanine Aminotransferase (ALT/SGPT) 21 0-55 U/L Alkaline Phosphatase 66 40-136 U/L Total Protein 6.2 L 6.4-8.2 GM/DL Albumin 3.8 3.2-4.5 GM/DL (ELEAZAR HYMAN) Vital Signs/I&O 06/15/19 15:12 Temp 97.9 Pulse 104 Resp 20 B/P (MAP) 159/104 (122) Pulse Ox 96 O2 Delivery Room Air (ELEAZAR HYMAN) Vital Signs/I&O Capillary Refill : Less Than 3 Seconds (STEPHANIE WOODWARD MD) Blood Pressure Mean: 122 Progress Note #1: Time: 18:54 Progress Note Social work was contacted to assist with this patient. Recommendation was to contact [place] police and have them return to the home in pursuit of contacting her significant other. This was done and significant other could not be contacted. I've tried calling the phone numbers on file as well as phone numbers given to us by the patient which include [phone] and [phone]. All of these numbers have been disconnected. [employer] police called back stating that Cy Victor could not be found at the residence. They did give the contact number for the reporting person who is the patient's aunt Corry Hairston. I contacted Corry who stated she has no means by which to contacted Cy. The number she tried to call earlier today was disconnected which prompted the police welfare check. She states the patient has no other support system. Her parents are and she has no siblings or children. Corry and her are in poor health and live in [place]. They are unable to assist. Basic labs were unremarkable. Patient expresses a desire to return home and states she is safe there. Care of this patient is being transitioned to Dr. Hyman at this time. Progress Note #2: Time: 19:37 Progress Note After much effort we have been unable to find any support services or family to assist in this patient. Admission is seeming to be the only option. We are working with supervisor housecleaner to come up with the best option. Care of this patient is being transferred to Dr. Hyman at this time. (STEPHANIE WOODWARD MD) Progress Note : Time: 19:01 Progress Note Assume care of the patient from Dr. Myers and the patient does have a baseline history of MS, emotional lability and history of methamphetamine use. She lives, has not been present for this visit. Apparently welfare check was performed by [place] [employer] at the behest of her aunt from out of town and now the patient has no medical reason to stay in the hospital and wants to go home however she does not have a way to take her home or take care of her and she is not capable of giving herself there or taking care of herself when she arrives at home. We have tried multiple times to raise this, with no luck. The aunt from [place] who initially raised concerns to [facility] has declined to participate in the patient's care at this time. The patient says she wants a smoke and wants to go home. We have offered her a nicotine patch which she has declined. We have given her phone and she says she has a cell phone number for her who will try to get a hold of him. She is not having any acute distress at this time. (ELEAZAR HYMAN) Departure Communication (Admissions) Time/Spoke to Admitting Phy: 20:10 Discussed case lab and situation with Dr. Larios and he agrees to observe the patient for physical ability overnight and get a pediatric social worker consult in the morning about placement if her common-law does not re-materialize. (ELEAZAR HYMAN) Impression Primary Impression: Debility Additional Impression: Multiple sclerosis Disposition: ADMITTED INPATIENT Condition: Stable Admissions Decision to Admit Reason: Admit from ER (General) Decision to Admit/Date: Jun 15, 2019 Time/Decision to Admit Time: 20:00 (ELEAZAR HYMAN) Departure-Patient Inst. Referrals: GELLENDER,MARICRUZ A DO (PCP/Family) Primary Care Physician STEPHANIE WOODWARD MD Jun 15, 2019 18:51 ELEAZAR HYMAN Jun 15, 2019 19:05
[2019-06-15 21:40] VITALS: BP 131/93
--- NOTE | 2019-06-15 21:40 | NUR ---
KRISTIE GRIMALDO admitted to room 430-1, with an admitting diagnosis of DEBILITY, on 06/15/19 from ED via CART, accompanied by STAFF.KRISTIE GRIMALDO introduced to surroundings, call light, bed controls, phone, TV, temperature control, lights, meal times, smoking policy, visitor policy, side rail policy, bathrooms and showers. Patient Rights given to patient in the handbook. KRISTIE GRIMALDO verbalizes understanding that [facility] is not responsible for the loss or damage to any personal effects or valuables that are kept in the patients posession during their hospitalization.
[2019-06-15] MEDS ORDERED: ACETAMINOPHEN 500 MG TAB (TYLENOL) PO PRN (22:00)
[2019-06-15] MEDS ORDERED: ONDANSETRON 4 MG/2 ML (SDV) Z0FRAN IV PRN (22:00)
[2019-06-15] MEDS ORDERED: LORazepam INJ 2 MG/ML (ATIVAN) VIAL IV PRN (22:00)
[2019-06-15] MEDS ORDERED: NICOTINE 14 MG (NICODERM) PATCH TD PRN (22:00)
[2019-06-16] VITALS: BP 117/84
[2019-06-16] MEDS: LACTATED RINGERS 1,000 ML IV SCH ×2 (01:16→13:16)
[2019-06-16 04:37] LABS: BASOPHILS % (AUTO) 1 % (0-10); EOSINOPHILS # (AUTO) 0.2 10^3/uL (0.0-0.3); EOSINOPHILS % (AUTO) 4 % (0-10); HEMATOCRIT 38 % (35-52); HEMOGLOBIN 12.9 G/DL (11.5-16.0); LYMPHOCYTES # (AUTO) 0.9 X 10^3 (1.0-4.0); LYMPHOCYTES % (AUTO) 21 % (12-44); MEAN CORPUSCULAR HEMOGLOBIN 28 PG (25-34); MEAN CORPUSCULAR HGB CONC 34 G/DL (32-36); MEAN CORPUSCULAR VOLUME 84 FL (80-99); MEAN PLATELET VOLUME 10.6 FL (7.4-10.4); MONOCYTES # (AUTO) 0.5 X 10^3 (0.0-1.0); MONOCYTES % (AUTO) 12 % (0-12); NEUTROPHILS # (AUTO) 2.6 X 10^3 (1.8-7.8); NEUTROPHILS % (AUTO) 62 % (42-75); PLATELET COUNT 254 10^3/uL (130-400); RED CELL DISTRIBUTION WIDTH 13.3 % (10.0-14.5); WHITE BLOOD COUNT 4.2 10^3/uL (4.3-11.0)
[2019-06-16 04:39] VITALS: BP 115/78
[2019-06-16 04:52] LABS: BUN/CREATININE RATIO 21; CALCIUM 8.4 MG/DL (8.5-10.1); CARBON DIOXIDE 20 MMOL/L (21-32); CHLORIDE 109 MMOL/L (98-107); CREATININE SERUM 0.72 MG/DL (0.60-1.30); GFR ESTIMATED > 60; GLUCOSE 117 MG/DL (70-105); POTASSIUM 4.1 MMOL/L (3.6-5.0); SODIUM 140 MMOL/L (135-145)
[2019-06-16 08:00] VITALS: BP 138/76
--- NOTE | 2019-06-16 08:03 | History & Physicial ---
History of Present Illness History of Present Illness Reason for visit/HPI [place] police received a call from patient's aunt Iman Hairston stating Melisa needs welfare check. aunt is trying to get in touch with her and nobody answered. Patient lives alone. Patient has multiple sclerosis. Karime please came out to the house and found she lives in unacceptable living conditions EMS was called and patient sent out to the emergency room. ER unable to get in touch with significant other. Patient admitted to the office get settled out. Patient cried. Patient states Cy her significant other he was knocked him come back Patient states she's a pothead. Date of Admission Jun 15, 2019 at 20:42 Time Seen by a Provider: 07:58 I consulted on this patient on 06/16/19 07:57 Attending Physician Maricruz Ventura DO Admitting Physician Maricruz Ventura DO Consult Allergies and Home Medications Allergies Coded Allergies: No Known Drug Allergies (Unverified , 04/26/12) Patient Home Medication List Home Medication List Reviewed: No Past Nsqvdzo-Otyogc-Jbyrzu Hx Patient Social History Marrital Status: cohabiting Employed/Student: unemployed Alcohol Use: Occasionally Uses Alcohol Beverage of Choice: Beer Recreational Drug Use: Yes (SMOKES 1/2 PPD) Drug of Choice: MARIJUANA, METH Smoking Status: Current Everyday Smoker Type Used: Cigarettes 2nd Hand Smoke Exposure: Yes Recent Foreign Travel: No Contact w/other who traveled: No Recent Infectious Disease Expo: No Immunizations Up To Date Tetanus Booster (TDap): Less than 5yrs Pediatric: Yes Seasonal Allergies Seasonal Allergies: No Surgeries Yes (l shoulder) Respiratory Yes (snorts methamphetamines, smokes marijuana) Cardiovascular No Neurological Yes Multiple Sclerosis Reproductive System : No Hx Reproductive Disorders: No Genitourinary No UTI-Chronic Gastrointestinal Yes Pancreatitis Musculoskeletal No (WRIST WHEN YOUNGER) Fractures Endocrine History of Endocrine Disorders: No HEENT History of HEENT Disorders: No Cancer No Psychosocial History of Psychiatric Problem: Yes Behavioral Health Disorders: Bipolar, Schizophrenia Integumentary History of Skin or Integumenta: Yes (ACNE CAUSED BY MIRENA IUD) Blood Transfusions History of Blood Disorders: No Adverse Reaction to a Blood Tr: No Family Medical History Family Hx: Cancer (LUNG) 03 FATHER, Onset:Unknown (LUNG) PATERNAL GRANDMOTHER, Onset:Unknown (BREAST) Visual impairment MATERNAL GRANDMOTHER, Onset:Unknown (MACULAR DEGENERATION) Review of Systems Constitutional: malaise, weakness, other (Multiple sclerosis on unable to take care of herself) EENTM: no symptoms reported Respiratory: no symptoms reported Cardiovascular: no symptoms reported Gastrointestinal: no symptoms reported Genitourinary: no symptoms reported Physical Exam Vital Signs Vital Signs - First Documented 06/15/19 15:12 Temp 97.9 Pulse 104 Resp 20 B/P (MAP) 159/104 (122) Pulse Ox 96 O2 Delivery Room Air Capillary Refill : Less Than 3 Seconds Height, Weight, BMI Height: 5'4.00" Weight: 96lbs. 1.0oz. 43.420199te; 16.5 BMI Method:Stated General Appearance: No Apparent Distress, WD/WN Eyes: Bilateral Eye Normal Inspection HEENT: Normal ENT Inspection Respiratory: Lungs Clear, No Accessory Muscle Use, No Respiratory Distress Cardiovascular: Regular Rate, Rhythm, No Murmur Gastrointestinal: Non Tender, Soft Assessment/Plan Assessment and Plan Physical disability. Bipolar. Marijuana and meth history. Living and nonacceptable conditions. Hyperlipidemia. To get geriatric social worker involved To see if significant other will return home Admission Diagnosis Admission Status: Observation Clinical Quality Measures DVT/VTE Risk/Contraindication: Risk Factor Score Per Nursin RFS Level Per Nursing on Admit: 4+=Very High MARICRUZ VENTURA DO Jun 16, 2019 08:03
[2019-06-16] MEDS ORDERED: ENOXAPARIN 40 MG/0.4 ML (LOVENOX) SYR SC SCH (08:15)
[2019-06-16] MEDS: ENOXAPARIN 30 MG/0.3 ML (LOVENOX) SYR SC SCH (08:18)
[2019-06-16] MEDS ORDERED: MULT1TAB69 PO (08:57)
--- NOTE | 2019-06-16 09:34 | NUR ---
social work instructor stated patient wanted to go smoke. this RN offered a nicotine patch to patient. she refused stating they do not work
--- NOTE | 2019-06-16 09:35 | NUR ---
CM/SS spoke with the patient regarding SS consult. Patient did not really want to talk at this time she wanted to eat her fruit and take a shower. Discussed briefly what she wanted to do when able to discharge and she stated have a cigarette and go home. Will continue to follow.
--- NOTE | 2019-06-16 10:58 | NUR ---
SPOKE WITH THE PATIENT THIS MORNING REGARDING HOME MEDICATIONS. SHE STATED SHE FILLS AT [facility] AND TAKES A SLEEPING PILL, DEPRESSION PILL AND LATUDA. I CALLED [facility] WHO HAS NOT FILLED ANYTHING FOR HER THIS YEAR EXCEPT FOR ACYCLOVIR 200MG #120 FOR 60 DAYS 01-21-19. THEY DID NOT HAVE RECORDS OF PRISTIQ OR DEPAKOTE BEING FILLED. PATIENT STATED [facility] PRESCRIBED HER MOOD MEDICATIONS. I CALLED THEM AND SPOKE WITH NURSE IVETT WHO STATES THEY HAVE NOT SEEN THE PATIENT SINCE . AT THAT TIME IT WAS REPORTED SHE WAS TAKING DEPAKOTE, PRISTIQ, AND REMERON 15MG HS. IVETT ALSO MENTIONED THE PATIENT FOLLOWS WITH DR. VENTURA AND DR. LAO. I CALLED DR. VENTURA'S OFFICE WHO STATES THEY HAVE NOT SEEN THE PATIENT IN YEARS AND THE LAST TIME THE MEDICATION LIST THEY HAVE ON FILE WAS UPDATE WAS IN 2013. I SPOKE WITH DR. LAO'S OFFICE IN [place] AND THEY LAST SAW THE PATIENT IN 2016. AT THAT TIME IT WAS REPORTED THE PATIENT WAS TAKING TIZANIDINE AND DEPAKOTE ER 500MG BID. THEY ALSO HAD PUT HER ON COPAXONE BUT THE PATIENT STOPPED IT STATING IT DID NOT HELP. WHEN I WENT BACK AT SPOKE WITH THE PATIENT ABOUT HOW LONG IT HAD BEEN SINCE SHE FILLED A MEDICATION OR HAD BEEN SEEN AT THOSE THREE DRClive OFFICES SHE ADMITTED IT HAS BEEN AWHILE BUT SHE DIDN'T REALIZE IT HAD BEEN SO LONG. I EXPLAINED THEY DID NOT HAVE RECORD OF LATUDA BUT SHE DID RECOGNIZE THE PRISTIQ AND DEPAKOTE STATING THOSE WERE THE CORRECT MEDICATIONS. I CALLED DR. LIPSCOMB'S OFFICE AT NEUROLOGY (WHO PRESCRIBED THE ACYCLOVIR IN DECEMBER 2018) AT [phone]. THE NURSE RETURNED MY CALL AT THIS TIME STATING THEY LAST SAW THE PATIENT 12-29-18. THE PATIENT DID COME FOR HER 1ST INFUSION OF [place] ON 01-06-19 BUT DID NOT SHOW UP FOR THE 2ND INFUSION SCHEDULED 02-17-19, HOWEVER SHE DID UTILIZE THE HOTEL PAID FOR BY THE COMPANY. NURSE STATES IF WOULD LIKE INFORMATION ABOUT THIS PATIENT DR. LIPSCOMB WOULD BE MORE THAN HAPPY TO ASSIST. IS IN CLINIC BUT THE NURSE CAN GET IN TOUCH WITH HER DIRECTLY IF NEEDED. THE LIST OF MEDICATIONS THAT WAS REPORTED TO THEM BUT NOT PRESCRIBED BY THEM AT THAT OFFICE VISIT WAS FOLLOWS: LIPITOR PRISTIQ 50MG DEPAKOTE ER 500MG BID FOLIC ACID 1MG DAILY TIZANIDINE 4-8MG Q4H PRN
--- NOTE | 2019-06-16 11:44 | NUR ---
CM/SS [facility] Adult Protective services report made intake #[id number].
[2019-06-16 12:00] VITALS: BP 132/60
--- NOTE | 2019-06-16 13:38 | NUR ---
CM/SS spoke with Mary Ann Reynolds ([facility] Protective [facility]) she was responding to the reports from myself and [place] PD on the patient. Gave information necessary. She was going to speak with the patient and discuss SNF or 24hr healthcare facility administrator for the patient. If patient was unwilling to do this then would possibly be considering guardian for her.
--- NOTE | 2019-06-16 15:28 | NUR ---
CM/SS patient's (Cy, ) came to the hospital. He stated that he is her landcare facilitator and is with her 99% of the time and is unsure how he missed EMS/PD at the home yesterday. He stated he was worried all day about her missing and went to PD today to file a missing person, that is when he went to the PD and found out that she had been brought to the hospital by EMS. He said that he had also been to the DCF office. States that they have a worker in the home for housework. Patient and Cy are adamant that they want to return to the home. Would be agreeable to Home Health Care.
[2019-06-16 16:05] VITALS: BP_SYST 133; BP_SYST 137; BP_DIAS 72; BP_DIAS 83
[2019-06-16 20:26] VITALS: BP 114/74
[2019-06-17 00:15] VITALS: BP 146/84
[2019-06-17] MEDS: LACTATED RINGERS 1,000 ML IV SCH (02:46)
[2019-06-17 04:36] VITALS: BP 151/79
[2019-06-17 05:38] LABS: HEMOGLOBIN 12.4 G/DL (11.5-16.0); MEAN PLATELET VOLUME 10.3 FL (7.4-10.4); RED CELL DISTRIBUTION WIDTH 13.7 % (10.0-14.5); WHITE BLOOD COUNT 6.4 10^3/uL (4.3-11.0)
[2019-06-17 06:05] LABS: BUN/CREATININE RATIO 22; CALCIUM 8.2 MG/DL (8.5-10.1); CARBON DIOXIDE 21 MMOL/L (21-32); CHLORIDE 113 MMOL/L (98-107); CREATININE SERUM 0.67 MG/DL (0.60-1.30); GFR ESTIMATED > 60; GLUCOSE 94 MG/DL (70-105); POTASSIUM 3.6 MMOL/L (3.6-5.0); SODIUM 143 MMOL/L (135-145)
--- NOTE | 2019-06-17 07:56 | Progress Note ---
Subjective Time Seen by a Provider: 07:53 Subjective/Events-last exam Patient wants to go home with Cy back to their house. Patient willing to accept home health. Patient will not go to see specialist at [facility] for her multiple scleros is. To put patient back on her Depakote ER 500 mg. To see patient next Saturday Objective Exam Vital Signs Date Time Temp Pulse Resp B/P (MAP) Pulse Ox O2 Delivery O2 Flow Rate FiO2 06/17/19 04:36 98.2 92 18 151/79 (103) 97 Room Air 06/17/19 00:15 98.3 108 18 146/84 (104) 98 Room Air 06/16/19 20:26 97.9 106 20 114/74 (87) 98 Room Air 06/16/19 20:00 98 Room Air 06/16/19 16:05 98.7 104 18 133/83 (100) 98 Room Air 06/16/19 12:00 97.4 68 18 132/60 (84) 92 Room Air 06/16/19 08:00 97.5 92 16 138/76 (96) 94 Room Air 06/16/19 08:00 Room Air I & O 06/17/19 07:00 Intake Total 3440 ml Output Total 0 ml Balance 3440 ml Capillary Refill : Less Than 3 Seconds General Appearance: No Apparent Distress, Thin HEENT: Normal ENT Inspection Neck: Normal Inspection Respiratory: Lungs Clear, No Accessory Muscle Use, No Respiratory Distress Cardiovascular: Regular Rate, Rhythm, No Murmur Results Lab Laboratory Tests 06/17/19 05:15 Laboratory Tests 06/17/19 05:15: White Blood Count 6.4, Red Blood Count 4.41, Hemoglobin 12.4, Hematocrit 38, Mean Corpuscular Volume 86, Mean Corpuscular Hemoglobin 28, Mean Corpuscular He moglobin Concent 33, Red Cell Distribution Width 13.7, Platelet Count 261, Mean Platelet Volume 10.3, Sodium Level 143, Potassium Level 3.6, Chloride Level 113H , Carbon Dioxide Level 21, Anion Gap 9, Blood Urea Nitrogen 15, Creatinine 0.67, Estimat Glomerular Filtration Rate > 60, BUN/Creatinine Ratio 22, Glucose Level 94, Calcium Level 8.2L Assessment/Plan Assessment/Plan Assess & Plan/Chief Complaint Physical disability. Multiple sclerosis. Bipolar. Hyperlipidemia history. Patient be discharged today back to home with significant other. Patient to be seen in the office next Saturday. Patient to be put on Depakote. Patient refuses to go back to [facility] to see multiple sclerosis physician specialist Clinical Quality Measures Admission Status Admission Dx Physical disability. Bipolar. Marijuana and meth history. Living and nonacceptable conditions. Hyperlipidemia. To get social media designer involved To see if significant other will return home DVT/VTE Risk/Contraindication: Risk Factor Score Per Nursin RFS Level Per Nursing on Admit: 4+=Very High MARICRUZ VENTURA DO Jun 17, 2019 07:56
[2019-06-17 08:00] VITALS: BP 112/60
--- NOTE | 2019-06-17 08:00 | D/C HH Face to Face Order ---
D/C Face to Face Orders Reconcile Patient Problems Problems Reviewed?: Yes Instructions for Patient [facility] [employer], Patient Instructions/FollowUp: 2 office next Saturday. Patient wants home health. Rx Depakote order to Karen by nurse Physician to follow Patient: Yes Discharge Diet for Home: Regular Diet Patient Data-Allergies,Ht & Wt Patient Allergies: Coded Allergies: No Known Drug Allergies (Unverified , 04/26/12) Height (Feet): 5 Height (Inches): 4.00 Weight (Pounds): 96 Weight (Ounces): 1.0 Home Health Need/Face to Face Date of Face to Face: Jun 17, 2019 Clinical Findings: Generalized weakness and fatigue, Non or partial weight bearing, Other-list in note (Patient has multiple sclerosis) I have seen Pt [id number]: Yes Discharged To: Home Diagnosis/Conditions: Multiple sclerosis. Unable to ambulate. Physical disability Patient is Homebound due to: Non-weight bearing (Has multiple sclerosis) Homebound Status Due to the above stated illness, injury or surgical procedure (medical condition or diagnosis) and associated clinical findings, the patient is homebound because of his/her inability to leave home except with aid of a supportive device and/or person AND leaving the home requires a considerable and taxing effort or is medically contraindicated. Pt req the following assistanc: Wheelchair Home Health Nursing Orders Home Health Services Order: Nursing Services Certify Stmt I certify that this patient is under my care and that I, a nurse practitioner or a physician; a preschool teacher assistant working with me, had a face to face encounter that - meets the physician face to face encounter requirements with this patient as dated. MARICRUZ VENTURA DO Jun 17, 2019 08:00
[2019-06-17] MEDS ORDERED: DIVA-21 PO (08:08)
--- NOTE | 2019-06-17 08:10 | Clinic Account Progress/Dx ---
Clinic Account Progress/Dx DIAGNOSIS: Time Seen by Provider: 08:09 Physical debility. Bipolar. Marijuana usage. Hyperlipidemia MARICRUZ VENTURA DO Jun 17, 2019 08:10
[2019-06-17] MEDS: ENOXAPARIN 30 MG/0.3 ML (LOVENOX) SYR SC SCH (08:33)
--- NOTE | 2019-06-17 09:06 | NUR ---
CM/SS patient will discharge this day with HHC. Lindy and Cy were in the room, discussed HHC agencies and their preference would be for HHC, information sent to them. Cy stated that he will continue to follow up with DCF.
[2019-06-17 11:21] VITALS: BP 112/60
== END 2019-06-17 07:56 | disposition home health service (06) ==
LOC: EDUNIT# 15:06 → ER 15:06 → UNDOADMOB 20:42 → 4TH 20:42 → UNDODISOB 06-17 11:17
PROVIDERS: ADMIT Family Medicine; ATTEND Family Medicine
DX: R53.81 Other malaise (principal); F31.9 Bipolar disorder, unspecified; E78.5 Hyperlipidemia, unspecified; Z86.59 Personal history of other mental and behavioral disorders
CPT/HCPCS: 36415; 80048; 80053; 85025; 85027; 99281; G0378

== ENCOUNTER 2019-09-23 19:00 | Inpatient (IN) | payer MEDICARE, MEDICAID ==
[~2019-09-23] VITALS: Ht 167 cm; Wt 46.0 kg
[~2019-09-23 19:00] MED LIST changes: +DIVA-21 PO; +MULT1TAB69 PO
[2019-09-23 19:28] LABS: BASOPHILS % (AUTO) 0 % (0-10); EOSINOPHILS % (AUTO) 0 % (0-10); HEMATOCRIT 44 % (35-52); HEMOGLOBIN 14.7 G/DL (11.5-16.0); LYMPHOCYTES # (AUTO) 0.7 X 10^3 (1.0-4.0); LYMPHOCYTES % (AUTO) 5 % (12-44); MEAN CORPUSCULAR HEMOGLOBIN 28 PG (25-34); MEAN CORPUSCULAR HGB CONC 33 G/DL (32-36); MEAN CORPUSCULAR VOLUME 84 FL (80-99); MEAN PLATELET VOLUME 10.7 FL (7.4-10.4); MONOCYTES # (AUTO) 1.2 X 10^3 (0.0-1.0); MONOCYTES % (AUTO) 8 % (0-12); NEUTROPHILS # (AUTO) 13.8 X 10^3 (1.8-7.8); NEUTROPHILS % (AUTO) 88 % (42-75); PLATELET COUNT 211 10^3/uL (130-400); RED CELL DISTRIBUTION WIDTH 14.5 % (10.0-14.5); WHITE BLOOD COUNT 15.7 10^3/uL (4.3-11.0)
[2019-09-23] MEDS ORDERED: IOHEXOL 350 MG/ML 100 ML (OMNIPAQUE 350) VIAL IV ONE (19:45)
[2019-09-23] MEDS ORDERED: NS 100 ML (IVPB) BAG IV ONE (19:45)
[2019-09-23] MEDS ORDERED: HOLD METFORMIN - RECEIVED CONTRAST 20 ML VIAL IV SCH (19:45)
[2019-09-23 19:52] LABS: PROTHROMBIN TIME PATIENT 13.5 SEC (12.2-14.7)
[2019-09-23 19:57] LABS: BAND NEUTROPHILS 6 %; LYMPHOCYTES % (MANUAL) 6 %; MONOCYTES % (MANUAL) 4 %; NEUTROPHILS % (MANUAL) 84 %; RBC MORPH NORMAL
[2019-09-23 19:58] LABS: ALANINE AMINOTRANSFERASE 23 U/L (0-55); ALBUMIN 3.5 GM/DL (3.2-4.5); ALKALINE PHOSPHATASE 76 U/L (40-136); BILIRUBIN,TOTAL 0.3 MG/DL (0.1-1.0); BUN/CREATININE RATIO 18; CALCIUM 8.5 MG/DL (8.5-10.1); CARBON DIOXIDE 18 MMOL/L (21-32); CHLORIDE 110 MMOL/L (98-107); CREATININE SERUM 0.79 MG/DL (0.60-1.30); GFR ESTIMATED > 60; GLUCOSE 100 MG/DL (70-105); SODIUM 140 MMOL/L (135-145); TOTAL PROTEIN 7.8 GM/DL (6.4-8.2)
[2019-09-23 20:15] LABS: POTASSIUM 4.4 MMOL/L (3.6-5.0)
--- NOTE | 2019-09-23 20:23 | Diagnostic Imaging Report ---
PROCEDURE: CT head and CT cervical spine without contrast. TECHNIQUE: Multiple contiguous axial images were obtained through the brain and cervical spine without the use of intravenous contrast. Sagittal and coronal reformations through the cervical spine were then performed. Auto Exposure Controls were utilized during the CT exam to meet ALARA standards for radiation dose reduction. DATE: September 23, 2019. COMPARISON: CT head and cervical spine December 22, 2018. INDICATION: 39-year-old female, history of multiple sclerosis. Fever. FINDINGS: There is proportional prominence of the ventricles and CSF spaces consistent with mild cerebral volume loss. There are several low-attenuation foci in the periventricular and subcortical white matter which are nonspecific but may correlate with provided history of multiple sclerosis. Stability of white matter lesions is difficult to evaluate on CT head imaging. This is especially true given the degree of motion artifact on prior study. There is no mass effect or midline shift. There is no acute intracranial hemorrhage. There is no abnormal extra-axial fluid collection. The visualized portions of the paranasal sinuses, mastoid air cells and middle ears are well aerated. There is no facet joint subluxation or dislocation. There is no asymmetric widening of the cervical disc spaces. There is no prominent prevertebral soft tissue swelling. There is arthritis at the C1-C2 articulation. There are diffuse degenerative changes of the cervical spine most notable at C5-C6 and C6-C7 with moderate to severe disc height loss at both levels and posterior disc osteophyte complexes. There is also likely a posterior disc osteophyte complex at C4-C5. CT is limited for assessment of disc pathology as well as additional non-bony causes of pathology within the spinal canal including demyelinating disease. There is no identified acute fracture of the cervical spine. There is no identified aggressive bone destruction. The visualized portions of the lungs are clear. There are carotid vascular calcifications noted. There is a urinary the left internal jugular vein. Recommend correlation for recent intervention. IMPRESSION: 1. Multiple low-attenuation foci in the subcortical and periventricular white matter which are nonspecific but could correlate with provided history of multiple sclerosis. Evaluation for stability of white matter lesions is very limited on noncontrast CT evaluation. For evaluation of potential demyelinating lesions and areas of active demyelination, MRI brain without and with intravenous contrast would be more optimal. 2. No identified acute intracranial hemorrhage, mass effect, or midline shift. 3. Mild cerebral volume loss. 4. No identified acute abnormality of the cervical spine. 5. Incidental findings as above. Dictated by: Dictated on workstation # [id number]
--- NOTE | 2019-09-23 20:45 | Diagnostic Imaging Report ---
EXAMINATION: Chest radiograph, portable AP view. DATE: 09/23/2019 8:22 PM. INDICATION: 39-year-old female, fever. COMPARISON: CT chest, abdomen and pelvis December 22, 2018. FINDINGS: There is multifocal tree-in-bud nodularity within both lungs. Some of the areas of tree-in-bud nodularity are progressed since prior CT chest of December 22, 2018. There is no pneumothorax or pleural effusion. IMPRESSION: Multifocal tree-in-bud nodularity in the bilateral lungs, some which is progressed since December 22, 2018. This most likely relates to process spreading via endobronchial means which is most typically an infectious bronchiolitis or aspiration. Dictated by: Dictated on workstation # [id number]
[2019-09-23] MEDS ORDERED: NS IV 1000 ML 1,000 ML IV ONE (20:49)
--- NOTE | 2019-09-23 20:49 | Diagnostic Imaging Report ---
PROCEDURE: CT chest, abdomen, and pelvis with contrast. TECHNIQUE: Multiple contiguous axial images were obtained through the chest, abdomen, and pelvis after the administration of intravenous contrast. Auto Exposure Controls were utilized during the CT exam to meet ALARA standards for radiation dose reduction. DATE: September 23, 2019. COMPARISON: CT chest, abdomen and pelvis December 22, 2018. INDICATION: 39-year-old female, fever. History of multiple sclerosis. FINDINGS: There is tree-in-bud nodularity in the right upper lobe on axial image 20 which is present previously. There is also tree-in-bud nodularity in the right lower lobe which is present previously. Some of the tree-in-bud nodularity in the right lower lobe has increased since comparison exam. There is mild tree-in-bud nodularity in the right middle lobe which is present previously. There is tree in bud nodularity in the left lower lobe, some of which appears more prominent than on comparison study. There is no pneumothorax. There is no pleural effusion. There is opacification of right lower lobe and left lower lobe bronchi. There is no pneumothorax. There is no pleural effusion. There is no identified central pulmonary embolus. The heart is not enlarged. There is no pericardial effusion. There is no identified abnormally enlarged mediastinal, hilar or axillary lymph node meeting CT size criteria for adenopathy. The liver is normal in size and contour. The main, right, and left portal veins are patent. The gallbladder is unremarkable. There is no biliary ductal dilation. The pancreas is unremarkable. The spleen is normal in size. Unremarkable appearance of the adrenal glands. Unremarkable appearance of the renal parenchyma. There is no hydronephrosis. The urinary bladder is unremarkable. There is a large amount of fecal material in colon. There is no free intraperitoneal air. There is no drainable fluid collection. There is no free pelvic fluid. There are atherosclerotic calcifications. There is no abnormally enlarged lymph node in the abdomen or pelvis which meet CT size criteria for adenopathy. There is no identified acute bony abnormality. IMPRESSION: CT chest, abdomen and pelvis. 1. Multifocal tree-in-bud nodularity in the lungs with some areas of progression since prior study of December 22, 2018. This likely relates to process spreading via endobronchial means which is most typically an infectious bronchiolitis or aspiration. 2. No identified acute abnormality specifically in the abdomen or pelvis. Dictated by: Dictated on workstation # [id number]
[2019-09-23 20:59] LABS: BILIRUBIN,URINE NEGATIVE (NEGATIVE); CLARITY,URINE CLEAR; COLOR,URINE YELLOW; GLUCOSE, URINE (UA) NEGATIVE (NEGATIVE); KETONES,URINE TRACE (NEGATIVE); LEUKOCYTE ESTERASE ,URINE NEGATIVE (NEGATIVE); NITRITE,URINE NEGATIVE (NEGATIVE); PH,URINE 5.5 (5-9); PROTEIN,URINE 1+ (NEGATIVE)
[2019-09-23] MEDS ORDERED: PIPERACILLIN SODIUM/TAZOBACTAM 4.5 GM in NS (IVPB) 100 ML IV ONE (21:00)
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
[2019-09-23 21:24] LABS: AMORPHOUS SEDIMENT,UR FEW AMOR URATES /LPF; BACTERIA,URINE TRACE /HPF; RBC,URINE 0-2 /HPF; WBC,URINE 0-2 /HPF
[2019-09-23 21:34] LABS: AMPHETAMINE SCREEN, URINE POSITIVE (NEGATIVE); BARBITURATE SCREEN URINE NEGATIVE (NEGATIVE); BENZODIAZEPINES SCREEN URINE NEGATIVE (NEGATIVE); CANNABINOID SCREEN, URINE NEGATIVE (NEGATIVE); COCAINE SCREEN URINE NEGATIVE (NEGATIVE); METHADONE STAT NEGATIVE (NEGATIVE); METHAMPHETAMINE SCREEN URINE S POSITIVE (NEGATIVE); OPIATE SCREEN URINE POSITIVE (NEGATIVE); OXYCODONE STAT NEGATIVE (NEGATIVE); PROPOXYPHENE STAT NEGATIVE (NEGATIVE); TRICYCLIC ANTIDEPRESSANTS SCRE NEGATIVE (NEGATIVE)
--- NOTE | 2019-09-23 21:55 | Diagnostic Imaging Report ---
EXAMINATION: Right femur, 2 views, 4 images. COMPARISON: None. HISTORY: 39-year-old female, fall. Right femur pain. FINDINGS: There is no right knee joint effusion. Material overlying the patient does limit the exam. The right hip is not dislocated. There is significantly limited evaluation of the right acetabulum and iliac bone relating to overlying material. There is no definite acute fracture. IMPRESSION: 1. Significant limitations of the exam related to material overlying the patient which should be removed prior to imaging. This is significantly limiting evaluation of the right acetabulum and iliac bone in particular. 2. No definite visualized acute fracture. Dictated by: Dictated on workstation # [id number]
[2019-09-23 22:29] VITALS: BP 144/100
[2019-09-23 22:45] VITALS: BP 155/131
[2019-09-23] MEDS ORDERED: ONDANSETRON 4 MG/2 ML (SDV) Z0FRAN IV PRN (22:45)
[2019-09-23] MEDS ORDERED: APAP 325 MG/10.15 ML LIQ (TYLENOL) UDC PO PRN (22:45)
[2019-09-23] MEDS ORDERED: ACETAMINOPHEN 650 MG SUPP (TYLENOL) PR PRN (22:45)
[2019-09-23] MEDS ORDERED: NS IV ONE (22:45)
[2019-09-23 23:00] VITALS: BP 153/126
[2019-09-23] MEDS: NS IV 1000 ML 1,000 ML IV SCH (23:03)
--- NOTE | 2019-09-23 23:04 | NUR ---
30ML/KG BOLUS GIVEN IN ER
[2019-09-23 23:15] VITALS: BP 138/95
[2019-09-24] VITALS (13 sets, daily range): BP systolic 109–140; BP diastolic 69–95
[2019-09-24] MEDS ORDERED: PIPERACILLIN/TAZO 4.5 GM/NS 100 ML IV SCH ×2 (03:00)
[2019-09-24 03:29] LABS: BASOPHILS % (AUTO) 0 % (0-10); EOSINOPHILS % (AUTO) 0 % (0-10); HEMATOCRIT 36 % (35-52); HEMOGLOBIN 12.1 G/DL (11.5-16.0); LYMPHOCYTES # (AUTO) 0.9 X 10^3 (1.0-4.0); LYMPHOCYTES % (AUTO) 7 % (12-44); MEAN CORPUSCULAR HEMOGLOBIN 28 PG (25-34); MEAN CORPUSCULAR HGB CONC 34 G/DL (32-36); MEAN CORPUSCULAR VOLUME 85 FL (80-99); MEAN PLATELET VOLUME 10.6 FL (7.4-10.4); MONOCYTES % (AUTO) 7 % (0-12); NEUTROPHILS # (AUTO) 11.5 X 10^3 (1.8-7.8); NEUTROPHILS % (AUTO) 86 % (42-75); PLATELET COUNT 188 10^3/uL (130-400); RED CELL DISTRIBUTION WIDTH 14.2 % (10.0-14.5); WHITE BLOOD COUNT 13.3 10^3/uL (4.3-11.0)
[2019-09-24] MEDS ORDERED: PIPERACILLIN/TAZO 4.5 GM VIAL (ZOSYN) IV ONE (03:41)
[2019-09-24] MEDS ORDERED: NS (IVPB) 100 ML ONE (03:41)
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
[2019-09-24 04:13] LABS: BUN/CREATININE RATIO 16; CALCIUM 7.9 MG/DL (8.5-10.1); CARBON DIOXIDE 18 MMOL/L (21-32); CHLORIDE 116 MMOL/L (98-107); CREATININE SERUM 0.68 MG/DL (0.60-1.30); GFR ESTIMATED > 60; GLUCOSE 96 MG/DL (70-105); MAGNESIUM 1.7 MG/DL (1.6-2.4); PHOSPHORUS 2.9 MG/DL (2.3-4.7); POTASSIUM 3.3 MMOL/L (3.6-5.0); SODIUM 144 MMOL/L (135-145)
[2019-09-24] MEDS ORDERED: morphine INJ 10 MG/ML 1ML (SYR OR VIAL) IVP PRN (04:15)
[2019-09-24] MEDS: POTASSIUM CL 10MEQ/50ML IVPB 50 ML IV SCH ×4 (04:52→07:58)
[2019-09-24] MEDS: MAGNESIUM 1 GM/100 ML IVPB 100 ML IV SCH ×2 (04:52→05:53)
[2019-09-24] MEDS: NS IV 1000 ML 1,000 ML IV SCH (04:56)
[2019-09-24] MEDS ORDERED: POTASSIUM CL 10MEQ/50ML IVPB 50 ML IV SCH (06:00)
[2019-09-24] MEDS ORDERED: MAGNESIUM 1 GM/100 ML IVPB 100 ML IV SCH (06:00)
[2019-09-24] MEDS ORDERED: KCL 20 MEQ TAB (K-DUR) PO SCH (06:00)
[2019-09-24] MEDS ORDERED: FLU QUADRIvalent (5+ YOA) 2019-2020 (AFLURIA) 0.5 ML IM ONE (07:30)
--- NOTE | 2019-09-24 07:38 | Diagnostic Imaging Report ---
EXAM: CHEST 1 VIEW, AP/PA ONLY INDICATION: Dyspnea. COMPARISON: 09/23/2019. FINDINGS: Persistent interstitial airspace infiltrate in the right lung base. No pleural effusion or pneumothorax. Normal heart size and central pulmonary vascularity. IMPRESSION: Stable infiltrate in the right lung base. Dictated by: Dictated on workstation # [id number]
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
== END 2019-09-24 08:43 | disposition left against medical advice (07) | DRG 871 ==
LOC: EDUNIT# 19:00 → ER 19:01 → ICU 21:39
PROVIDERS: ADMIT Internal Medicine; ATTEND Family Medicine
DX: A41.9 Sepsis, unspecified organism (principal); J69.0 Pneumonitis due to inhalation of food and vomit; E46 Unspecified protein-calorie malnutrition; Z68.1 Body mass index [BMI] 19.9 or less, adult; R65.20 Severe sepsis without septic shock; F15.129 Other stimulant abuse with intoxication, unspecified; G35 Multiple sclerosis; F31.9 Bipolar disorder, unspecified; F20.9 Schizophrenia, unspecified; F17.210 Nicotine dependence, cigarettes, uncomplicated; Z87.440 Personal history of urinary (tract) infections
CPT/HCPCS: 36415; 70450; 71045; 71260; 72125; 73552; 74177; 80048; 80053; 80306; 81000; 83605; 83735; 84100; 84145; 85007; 85025; 85027; 85610; 85730; 87040; 87081; 87088; 87804; 93005; 93041

== ENCOUNTER 2019-11-24 19:35 | Inpatient (IN) | payer MEDICARE, MEDICAID ==
[~2019-11-24] VITALS: Ht 167.7 cm; Wt 38.0 kg
[2019-11-24] MEDS ORDERED: fentaNYL INJECTION 100 MCG/2 ML AMP IVP PRN (19:45)
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
[2019-11-24] MEDS ORDERED: LORazepam INJ 2 MG/ML (ATIVAN) VIAL IVP PRN ×4 (20:30→22:30)
[2019-11-24] MEDS ORDERED: NS IV 1000 ML 1,000 ML IV SCH (20:30)
[2019-11-24 20:41] LABS: BASOPHILS % (AUTO) 0 % (0-10); EOSINOPHILS # (AUTO) 0.1 10^3/uL (0.0-0.3); EOSINOPHILS % (AUTO) 0 % (0-10); HEMATOCRIT 34 % (35-52); HEMOGLOBIN 11.1 G/DL (11.5-16.0); LYMPHOCYTES # (AUTO) 0.7 X 10^3 (1.0-4.0); LYMPHOCYTES % (AUTO) 6 % (12-44); MEAN CORPUSCULAR HEMOGLOBIN 27 PG (25-34); MEAN CORPUSCULAR HGB CONC 33 G/DL (32-36); MEAN CORPUSCULAR VOLUME 83 FL (80-99); MEAN PLATELET VOLUME 10.6 FL (7.4-10.4); MONOCYTES # (AUTO) 0.8 X 10^3 (0.0-1.0); MONOCYTES % (AUTO) 7 % (0-12); NEUTROPHILS # (AUTO) 9.8 X 10^3 (1.8-7.8); NEUTROPHILS % (AUTO) 86 % (42-75); PLATELET COUNT 436 10^3/uL (130-400); RED CELL DISTRIBUTION WIDTH 12.7 % (10.0-14.5); WHITE BLOOD COUNT 11.4 10^3/uL (4.3-11.0)
[2019-11-24 20:52] LABS: INR 1.1 (0.8-1.4); PROTHROMBIN TIME PATIENT 14.3 SEC (12.2-14.7)
[2019-11-24 20:59] LABS: ALANINE AMINOTRANSFERASE 27 U/L (0-55); ALBUMIN 3.2 GM/DL (3.2-4.5); ALKALINE PHOSPHATASE 100 U/L (40-136); BILIRUBIN,TOTAL 0.3 MG/DL (0.1-1.0); BUN/CREATININE RATIO 29; CALCIUM 9.3 MG/DL (8.5-10.1); CARBON DIOXIDE 25 MMOL/L (21-32); CHLORIDE 112 MMOL/L (98-107); CREATININE SERUM 0.55 MG/DL (0.60-1.30); GFR ESTIMATED > 60; GLUCOSE 102 MG/DL (70-105); MAGNESIUM 1.6 MG/DL (1.6-2.4); POTASSIUM 3.9 MMOL/L (3.6-5.0); SODIUM 146 MMOL/L (135-145); TOTAL PROTEIN 6.1 GM/DL (6.4-8.2)
[2019-11-24 21:03] LABS: EOSINOPHILS % (MANUAL) 1 %; HYPOCHROMASIA SLIGHT; LYMPHOCYTES % (MANUAL) 5 %; MONOCYTES % (MANUAL) 10 %; NEUTROPHILS % (MANUAL) 84 %; POIKILOCYTOSIS SLIGHT
--- NOTE | 2019-11-24 21:06 | Diagnostic Imaging Report ---
INDICATION: Central line placement.. Generalized pain. EXAMINATION: Single view of the chest 11/24/2019. COMPARISON: 09/24/2019 FINDINGS: The heart is unremarkable. The pulmonary vasculature is normal. Densities at both lung bases bilaterally symmetric, likely overlying nipple shadows. Lungs slightly hyperinflated. No infiltrates, effusions or pneumothorax. A right jugular line tip is seen in this distal SVC. IMPRESSION: 1. Hyperinflation of the lungs with other findings as above. Dictated by: Dictated on workstation # [id number]
--- NOTE | 2019-11-24 21:20 | NUR ---
Pt's hair completely matted to head and full of lint and unknown substance. and pt agree to shaving pt's head. Pt given sponge bath and allevyn dressing placed over open wounds.
[2019-11-24 21:41] LABS: BILIRUBIN,URINE NEGATIVE (NEGATIVE); CLARITY,URINE CLEAR; COLOR,URINE YELLOW; GLUCOSE, URINE (UA) NEGATIVE (NEGATIVE); KETONES,URINE NEGATIVE (NEGATIVE); LEUKOCYTE ESTERASE ,URINE NEGATIVE (NEGATIVE); NITRITE,URINE NEGATIVE (NEGATIVE); PH,URINE 5.5 (5-9); PROTEIN,URINE NEGATIVE (NEGATIVE)
[2019-11-24 21:50] LABS: BACTERIA,URINE FEW /HPF; RBC,URINE 0-2 /HPF
[2019-11-24 21:53] LABS: AMPHETAMINE SCREEN, URINE POSITIVE (NEGATIVE); BARBITURATE SCREEN URINE NEGATIVE (NEGATIVE); BENZODIAZEPINES SCREEN URINE NEGATIVE (NEGATIVE); CANNABINOID SCREEN, URINE NEGATIVE (NEGATIVE); COCAINE SCREEN URINE NEGATIVE (NEGATIVE); METHADONE STAT NEGATIVE (NEGATIVE); METHAMPHETAMINE SCREEN URINE S POSITIVE (NEGATIVE); OPIATE SCREEN URINE NEGATIVE (NEGATIVE); OXYCODONE STAT NEGATIVE (NEGATIVE); PROPOXYPHENE STAT NEGATIVE (NEGATIVE); TRICYCLIC ANTIDEPRESSANTS SCRE NEGATIVE (NEGATIVE)
[2019-11-24] MEDS ORDERED: meTOprolol 5 MG/5 ML (LOPRESSOR) VIAL IV ONE (22:15)
--- NOTE | 2019-11-24 22:19 | NUR ---
Pt's admits to giving pt meth. When asked how gives pt meth, reports pt snorts the meth.
--- NOTE | 2019-11-24 22:37 | NUR ---
Pt's had asked earlier if pt could be fed crackers had brought from home. was advised not to give pt crackers due to risk of aspiration and possible choking. given two applesauces to feed pt. Pt tolerated applesauce well. When this nurse went back into room, had fed pt crackers. This nurse advised these precautions are for the pt's safety and if the precautions cannot be followed the would not be allowed in the pt's room.
[2019-11-24 23:15] VITALS: BP 150/91
[2019-11-24 23:30] VITALS: BP 127/95
[2019-11-24] MEDS: LORazepam INJ 2 MG/ML (ATIVAN) VIAL IM/IV PRN (23:40)
[2019-11-24 23:45] VITALS: BP 145/98
[2019-11-25] VITALS (24 sets, daily range): BP systolic 142–167; BP diastolic 85–138
[2019-11-25] MEDS: LACTATED RINGERS 1,000 ML IV SCH ×4 (00:37→22:13)
[2019-11-25] MEDS: LORazepam INJ 2 MG/ML (ATIVAN) VIAL IM/IV PRN (01:44)
[2019-11-25] MEDS ORDERED: KETOROLAC 15 MG/ML VIAL IVP ONE (02:15)
[2019-11-25] MEDS ORDERED: fentaNYL INJECTION 100 MCG/2 ML AMP IVP ONE (03:30)
[2019-11-25] MEDS ORDERED: fentaNYL INJECTION 100 MCG/2 ML AMP IVP PRN (03:30)
[2019-11-25 03:59] LABS: BASOPHILS % (AUTO) 0 % (0-10); EOSINOPHILS % (AUTO) 1 % (0-10); HEMATOCRIT 30 % (35-52); HEMOGLOBIN 9.4 G/DL (11.5-16.0); LYMPHOCYTES # (AUTO) 0.7 X 10^3 (1.0-4.0); LYMPHOCYTES % (AUTO) 9 % (12-44); MEAN CORPUSCULAR HEMOGLOBIN 26 PG (25-34); MEAN CORPUSCULAR HGB CONC 32 G/DL (32-36); MEAN CORPUSCULAR VOLUME 83 FL (80-99); MEAN PLATELET VOLUME 10.9 FL (7.4-10.4); MONOCYTES # (AUTO) 0.5 X 10^3 (0.0-1.0); MONOCYTES % (AUTO) 6 % (0-12); NEUTROPHILS # (AUTO) 6.7 X 10^3 (1.8-7.8); NEUTROPHILS % (AUTO) 84 % (42-75); PLATELET COUNT 386 10^3/uL (130-400); RED CELL DISTRIBUTION WIDTH 12.7 % (10.0-14.5)
[2019-11-25 04:24] LABS: ALANINE AMINOTRANSFERASE 27 U/L (0-55); ALBUMIN 2.8 GM/DL (3.2-4.5); ALKALINE PHOSPHATASE 92 U/L (40-136); BILIRUBIN,TOTAL 0.4 MG/DL (0.1-1.0); BUN/CREATININE RATIO 22; CALCIUM 8.5 MG/DL (8.5-10.1); CARBON DIOXIDE 20 MMOL/L (21-32); CHLORIDE 111 MMOL/L (98-107); CREATININE SERUM 0.46 MG/DL (0.60-1.30); GFR ESTIMATED > 60; GLUCOSE 93 MG/DL (70-105); MAGNESIUM 1.3 MG/DL (1.6-2.4); PHOSPHORUS 3.2 MG/DL (2.3-4.7); POTASSIUM 3.6 MMOL/L (3.6-5.0); SODIUM 140 MMOL/L (135-145); TOTAL PROTEIN 5.2 GM/DL (6.4-8.2)
[2019-11-25] MEDS: POTASSIUM CL 10MEQ/50ML IVPB 50 ML IV SCH (05:19)
[2019-11-25] MEDS: MAGNESIUM 1 GM/100 ML IVPB 100 ML IV SCH ×5 (05:19→13:32)
[2019-11-25] MEDS: KCL 20 MEQ TAB (K-DUR) PO SCH (05:20)
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
--- NOTE | 2019-11-25 07:37 | History & Physical ---
History of Present Illness History of Present Illness Reason for visit/HPI Patient fell 3 times off couch. Significant other called EMS. Patient brought out the emergency room there Patient cachectic, tachycardia, hypertensive, anemic, hyperthyroid, and positive for meth. Emergency room personnel states patient hair had bowel movement and it knitted. Patient not communicating now. Patient did talk to nurse last night and stated her name. Patient has history of bipolar and multiple sclerosis. Date of Admission Nov 24, 2019 at 20:50 Time Seen by a Provider: 07:21 I consulted on this patient on 11/25/19 07:21 Attending Physician Hugh Ventura DO Admitting Physician Hugh Ventura DO Consult Allergies and Home Medications Allergies Coded Allergies: No Known Drug Allergies (Unverified , 04/26/12) Home Medications Divalproex Sodium 500 Mg Tab.er.24h, 500 MG PO BID Prescribed by: SIMONE KRISHNAMURTHY on 06/17/19 0808 Patient Home Medication List Home Medication List Reviewed: Yes Past Oimjwag-Ywgrbg-Cjlcgu Hx Past Med/Social Hx: Reviewed Nursing Past Med/Soc Hx Patient Social History Marrital Status: cohabiting Employed/Student: unemployed Alcohol Use: Denies Use Number of Drinks Today: AA Alcohol Beverage of Choice: Beer Recreational Drug Use: Yes (SMOKES 1/2 PPD) Drug of Choice: MARIJUANA, METH Type Used: Cigarettes 2nd Hand Smoke Exposure: Yes Recent Foreign Travel: No Contact w/other who traveled: No Recent Infectious Disease Expo: No Immunizations Up To Date Tetanus Booster (TDap): Unknown Pediatric: Yes Seasonal Allergies Seasonal Allergies: No Past Medical History Cardiac: Hypertension Neurological: Multiple Sclerosis Reproductive: No Genitourinary: UTI-Chronic Gastrointestinal: Pancreatitis Musculoskeletal: Fractures Psychosocial: Bipolar, Schizophrenia History of Blood Disorders: No Adverse Reaction to Blood Elias: No Family History Cancer (LUNG) 03 FATHER, Onset:Unknown (LUNG) PATERNAL GRANDMOTHER, Onset:Unknown (BREAST) Visual impairment MATERNAL GRANDMOTHER, Onset:Unknown (MACULAR DEGENERATION) Review of Systems Constitutional: malaise, weakness, weight loss EENTM: no symptoms reported Respiratory: no symptoms reported Cardiovascular: other (Tachycardia and hypertension) Gastrointestinal: no symptoms reported Genitourinary: incontinence Physical Exam Vital Signs Vital Signs - First Documented 11/24/19 19:35 Temp 37.2 Pulse 154 Resp 13 B/P (MAP) 134/100 (111) Pulse Ox 97 O2 Delivery Room Air Capillary Refill : Less Than 3 Seconds Height, Weight, BMI Height: 5'4.00" Weight: 96lbs. 1.0oz. 43.759638fb; 14.04 BMI Method:Stated General Appearance: No Apparent Distress, Cachetic (Emaciated), Thin, Other Eyes: Bilateral Eye Normal Inspection HEENT: Normal ENT Inspection Neck: Other (Decreased motion of neck) Respiratory: Lungs Clear, No Accessory Muscle Use, No Respiratory Distress Cardiovascular: Tachycardia Gastrointestinal: Non Tender, Soft Assessment/Plan Assessment and Plan Cachectic. Tachycardia. Hypertension. Positive for meth. Anemia. Hyperthyroid. Multiple sclerosis. Bipolar. Difficulty in communicating Admission Diagnosis Admission Status: Inpatient Order (span 2 midnights) Reason for Inpatient Admission: Cachectic. Tachycardia. Hypertension. Hyperthyroid Clinical Quality Measures DVT/VTE Risk/Contraindication: Risk Factor Score Per Nursin RFS Level Per Nursing on Admit: 4+=Very High HUGH VENTURA DO Nov 25, 2019 07:37
--- NOTE | 2019-11-25 07:54 | Diagnostic Imaging Report ---
EXAMINATION: Chest 1 view INDICATION: Tachycardia. COMPARISON: 11/24/2019 FINDINGS: The lungs are clear without edema or pneumonia. No pleural effusion or pneumothorax. Heart size is normal. Right internal jugular central venous catheter tip terminates in the superior vena cava. Rounded density projecting over the right chest is likely related to prior monitoring lead placement or nipple. IMPRESSION: 1. Clear lungs. Dictated by: Dictated on workstation # [id number]
--- NOTE | 2019-11-25 08:54 | ST Dysphagia Evaluation ---
Speech Evaluation-General Medical Diagnosis Falls/Decreased Level of Conscience Onset Date: Nov 24, 2019 Therapy Diagnosis Therapy Diagnosis: Oropharyngeal Dysphagia Precautions Precautions: Aspiration Referral Referring Physician: Dr. Larios Reason for Referral: Evaluation/Treatment Medical History Reviewed History: Yes Social History Current Living Status: Significant Other Speech PLF/Current-Dysphagia Prior Level of Function Patient lived at home with significant other prior to hospital admission. Subjective Patient was cooperative for all evaluation tasks. Patient was lying on her side in a balled position in her bed and had difficulty maintaining an upright 90 degree position for optimal oral intake. Patient was very fatigued for the duration of the evaluation. Cognitive Status Patient Orientation: Person, Confused, Non-Verbal/Aphasic, Eyes Open, Mumbles Oral Motor Skills Dentition: Natural, Tumbled, Stained Current Food Consistancy: Regular Ability to Follow Directions: Fair Oral Expression Ability: Moderate Impairment Voice Voice Phonatory-Based Quality: Breathy, Weak Voice Loudness: Moderately Soft/Quiet Face Facial Symmetry: Symmetrical Oral-Facial Assessment Oral-Facial Dentition: Normal Labial Seal Description: Weak Puff Cheeks: Reduced Strength Dysphagia Evaluation Consistencies Presented: Thin Liquid, [place] Thick Liquid, Pureed Oral Phase: Reduced Oral Transit (Patient held bolus in her mouth until cued to swallow) Dietary Recommendations: Pureed Liquid Recommendations: [place] Consistancy Swallowing Precautions: Alternate Liquids/Solids, Double Swallow, Decreased Bolus 1/2 Tsp, Liquids from Spoon, No Straw, Oral Supervision Staff, Oral Supervision Caregiver, Small Bites and Sips, Sitting Upright 90 Degrees, Sitting 90 Degrees 30 Post Intake Dysphagia Evaluation Summary Patient was admitted to the ICU s/p several falls at home. Patient was presented with thin liquids via 1/4 tsp spoon and demonstrated s/s of penetration. Patient was presented with nectar thickened liquid via 1/4 tsp spoon and demonstrated no s/s of penetration or aspiration. Patient was then presented with pureed consistency via 1/4 tsp spoon and demonstrated no s/s of penetration or aspiration; however required moderate cues to initiate swallow. It is recommended that patient receive a DYSPHAGIA I diet with nectar thickened liquids. Additionally, patient is to receive maximum supervision during mealtimes to assist with positioning for safe and effective oral intake. Barriers to Learning Current medical status Speech Short Term Goals Short Term Goals Short Term Goals 1. Patient will tolerate least restrictive diet with no s/s of aspiration at 90%. 2. Patient will utilize compensatory strategies as trained at 90% with minimal cues. Speech Correction Goals Correction Goals Patient will maintain adequate nutrition/hydration via safe and effective swallow function. Speech-Plan Patient/Family Goals Patient/Family Goals: Patient wishes to return to previous level of independence and mobility. Treatment Plan Speech Therapy Treatment Plan: Continue Plan of Care Treatment Duration: Nov 27, 2019 Frequency: 2 times per week Estimated Hrs Per Day: .25 hour per day Rehab Potential: Fair Barriers to Learning: Current medical status Pt/Family Agrees to Plan: Yes Safety Risks/Education Teaching Recipient: Patient Teaching Methods: Demonstration Response to Teaching: Return Demonstration, Reinforcement Needed Education Topics Provided: Patient was provided education on the importance of utilizing compensatory strategies during meal times. Time Speech Therapy Time In: 08:00 Speech Therapy Time Out: 08:15 Total Billed Time: 15 Billed Treatment Time TIRSO Alcantar ASHLEYLAUREN ST Nov 25, 2019 08:54
[2019-11-25] MEDS ORDERED: meTOprolol TARTRATE 25 MG (LOPRESSOR) TABLET PO SCH (09:00)
[2019-11-25] MEDS: PANTOPRAZOLE 40 MG (PROTONIX) VIAL IV SCH (09:01)
[2019-11-25] MEDS: meTOprolol TARTRATE 25 MG (LOPRESSOR) TABLET PO SCH ×2 (09:01→09:15)
[2019-11-25] MEDS: ENOXAPARIN 30 MG/0.3 ML (LOVENOX) SYR SC SCH (09:02)
--- NOTE | 2019-11-25 11:49 | NUR ---
[facility] HAS NOT FILLED ANY PRESCRIPTIONS FOR THE PATIENT SINCE MAY, FROM DR. VENTURA. I CALLED DR. VENTURA'S OFFICE AND THEY HAVE NOT SEEN HER SINCE MAY. [facility] DOES NOT RETURN ANY RESULTS. I HAVE CALLED THE NUMBER ON FILE FOR THE PATIENT WHICH IS NO LONGER IN SERVICE WELL THE TWO NUMBERS LISTED FOR HER CONTACT [facility] AND THEY ARE USER BUSY SIGNALS. AT THIS TIME I HAVE SET THE PROFILE TO UNABLE TO OBTAIN MEDICATIONS. Addendum: 11/25/19 at 1400 by EDD DOBBS [facility] IS BACK IN THE ROOM AT THIS TIME AND STATES SHE IS NOT CURRENTLY TAKING ANY MEDICATION. THEY STILL PREFER TO USE [facility] IF NEEDED.
--- NOTE | 2019-11-25 13:05 | Consultation-Cardiology ---
HPI-Cardiology Cardiology Consultation: Date of Consultation 11/25/19 Date of Admission Attending Physician Hugh Larios DO Admitting Physician Hugh Larios DO Consulting Physician Lucinda PARK MD HPI: Time Seen by a Provider: 09:15 Chief Complaint: Tachycardia This is a 39-year-old lady with advanced multiple sclerosis. She presents due to fall at home. Altered mental status. Poor hygienic condition. Altered mental status. Tachycardic. Noncommunicative. Review of Systems-Cardiology Review of Systems Constitutional: As described under HPI; No As described under HPI, No no symptoms reported, No chills, No fever, No lightheadedness Eyes: No As described under HPI, No no symptoms reported, No blindness, No blurred vision, No contact lenses, No drainage, No decreased acuity, No foreign body sensation, No pain, No vision change Ears/Nose/Throat: No As described under HPI, No no symptoms reported, No chronic hearing loss, No ear discharge, No ear pain, No nasal drainage, No ulcerations Respiratory: No no symptoms reported; As described under HPI; No As described under HPI, No cough, No orthopnea, No shortness of breath, No SOB with excertion Cardiovascular: No no symptoms reported; As described under HPI; No As described under HPI, No chest pain, No edema, No irregular heart rate, No lightheadedness, No palpitations Gastrointestinal: No no symptoms reported, No As described under HPI, No abdomen distended, No abdominal pain, No blood streaked bowels, No constipation, No diarrhea, No nausea, No vomiting, No stool coloration changes Genitourinary: No As described under HPI, No burning, No dysuria, No discharge, No frequency, No flank pain, No hematuria, No urgency : Yes : No Skin: No rash, No skin related problems, No ulcerations Psychiatric/Neurological: No anxiety, No depression, No seizure, No focal weakness, No syncope Hematologic: No bleeding abnormalities CPR-Zznfjw-Cvzgnp Hx Patient Social History Marrital Status: cohabiting Employed/Student: unemployed Alcohol Use: Denies Use Recreational Drug Use: Yes (SMOKES 1/2 PPD) Drug of Choice: MARIJUANA, METH Type Used: Cigarettes 2nd Hand Smoke Exposure: Yes Recent Foreign Travel: No Recent Infectious Disease Expo: No Hospitalization with Isolation: Denies Immunizations Up To Date Tetanus Booster (TDap): Unknown Past Medical History PMH As described under Assessment. Family Medical History Family History: Cancer (LUNG) 03 FATHER, Onset:Unknown (LUNG) PATERNAL GRANDMOTHER, Onset:Unknown (BREAST) Visual impairment MATERNAL GRANDMOTHER, Onset:Unknown (MACULAR DEGENERATION) Allergies and Home Medications Allergies Coded Allergies: No Known Drug Allergies (Unverified , 04/26/12) Home Medications No Active Prescriptions or Reported Meds Patient Home Medication List Home Medication List Reviewed: Yes Physical Exam-Cardiology Physical Exam Vital Signs/I&O 11/25/19 11/25/19 11/25/19 11/25/19 04:00 05:00 06:00 06:44 Pulse 144 147 147 147 Resp 21 22 23 B/P (MAP) 158/97 (117) 154/94 (114) 150/108 (122) Pulse Ox 96 96 94 O2 Delivery Room Air Room Air Room Air 11/25/19 11/25/19 11/25/19 11/25/19 07:00 08:00 08:00 09:00 Pulse 146 144 146 Resp 27 21 24 B/P (MAP) 153/87 (109) 144/99 (114) 148/92 (110) Pulse Ox 94 95 95 O2 Delivery Room Air Room Air Room Air Room Air 11/25/19 11/25/19 11/25/19 11/25/19 10:00 11:00 12:00 13:00 Pulse 144 144 147 141 Resp 25 23 39 23 B/P (MAP) 152/85 (107) 150/96 (114) 146/92 (110) 145/97 (113) Pulse Ox 95 96 96 96 O2 Delivery Room Air Room Air Room Air Room Air 11/25/19 14:00 Pulse 142 Resp 22 B/P (MAP) 155/94 (114) Pulse Ox 98 O2 Delivery Room Air 11/25/19 00:00 Intake Total 1000 ml Balance 1000 ml Capillary Refill : Less Than 3 Seconds Constitutional: other (cachectic) HEENT: PERRL; No discharge; hearing is well preserved, oral hygience is good; No ulceration, No xanthelasmas are seen Neck: carotid pulses are 2 + bilaterally Respiratory: lungs clear to auscultation Cardiovascular: regular rate-rhythm, tachycardia, S1 and S2 Gastrointestinal: soft, audible bowel sounds Rectal: deferred Neurologic/Psychiatric: other (noncommunicative) Data Review Labs Laboratory Tests 11/24/19 20:30: White Blood Count 11.4H, Red Blood Count 4.13L, Hemoglobin 11.1L, Hematocrit 34L , Mean Corpuscular Volume 83, Mean Corpuscular Hemoglobin 27, Mean Corpuscular Hemoglobin Concent 33, Red Cell Distribution Width 12.7, Platelet Count 436H, Mean Platelet Volume 10.6H, Neutrophils (%) (Auto) 86H, Lymphocytes (%) (Auto) 6L, Monocytes (%) (Auto) 7, Eosinophils (%) (Auto) 0, Basophils (%) (Auto) 0, Neutrophils # (Auto) 9.8H, Lymphocytes # (Auto) 0.7L, Monocytes # (Auto) 0.8, Eosinophils # (Auto) 0.1, Basophils # (Auto) 0.0, Neutrophils % (Manual) 84, Lymphocytes % (Manual) 5, Monocytes % (Manual) 10, Eosinophils % (Manual) 1, Hypochromasia SLIGHT, Poikilocytosis SLIGHT, Prothrombin Time 14.3, INR Comment 1.1, Sodium Level 146H, Potassium Level 3.9, Chloride Level 112H, Carbon Dioxide Level 25, Anion Gap 9, Blood Urea Nitrogen 16, Creatinine 0.55L, Estimat Glomerular Filtration Rate > 60, BUN/Creatinine Ratio 29, Glucose Level 102, Lac tic Acid Level 0.85, Calcium Level 9.3, Corrected Calcium 9.9, Magnesium Level 1.6, Total Bilirubin 0.3, Aspartate Amino Transf (AST/SGOT) 20, Alanine Aminotransferase (ALT/SGPT) 27, Alkaline Phosphatase 100, Troponin I < 0.028, Total Protein 6.1L, Albumin 3.2, Thyroid Stimulating Hormone (TSH) 0.00L, Free Thyroxine 3.29H, Serum Test, Qualitative NEGATIVE 11/24/19 21:30: Urine Color YELLOW, Urine Clarity CLEAR, Urine pH 5.5, Urine Specific [place] >=1.030, Urine Protein NEGATIVE, Urine Glucose (UA) NEGATIVE, Urine Ketones NEGATIVE, Urine Nitrite NEGATIVE, Urine Bilirubin NEGATIVE, Urine Urobilinogen 0.2, Urine Leukocyte Esterase NEGATIVE, Urine RBC (Auto) NEGATIVE, Urine RBC 0- 2, Urine WBC NONE, Urine Squamous Epithelial Cells 2-5, Urine Crystals NONE, Urine Bacteria FEWH, Urine Casts NONE, Urine Mucus NEGATIVE, Urine Culture Indicated NO, Urine Opiates Screen NEGATIVE, Urine Oxycodone Screen NEGATIVE, Urine Methadone Screen NEGATIVE, Urine Propoxyphene Screen NEGATIVE, Urine Barbiturates Screen NEGATIVE, Ur Tricyclic Antidepressants Screen NEGATIVE, Urine Phencyclidine Screen NEGATIVE, Urine Amphetamines Screen POSITIVEH, Urine Methamphetamines Screen POSITIVEH, Urine Benzodiazepines Screen NEGATIVE, Urine Cocaine Screen NEGATIVE, Urine Cannabinoids Screen NEGATIVE 11/25/19 03:44: White Blood Count 8.0, Red Blood Count 3.56L, Hemoglobin 9.4L, Hematocrit 30L, Mean Corpuscular Volume 83, Mean Corpuscular Hemoglobin 26, Mean Corpuscular Hemoglobin Concent 32, Red Cell Distribution Width 12.7, Platelet Count 386, Mean Platelet Volume 10.9H, Neutrophils (%) (Auto) 84H, Lymphocytes (%) (Auto) 9L, Monocytes (%) (Auto) 6, Eosinophils (%) (Auto) 1, Basophils (%) (Auto) 0, Neutrophils # (Auto) 6.7, Lymphocytes # (Auto) 0.7L, Monocytes # (Auto) 0.5, Eosinophils # (Auto) 0.0, Basophils # (Auto) 0.0, Sodium Level 140, Potassium Level 3.6, Chloride Level 111H, Carbon Dioxide Level 20L, Anion Gap 9, Blood Urea Nitrogen 10, Creatinine 0.46L, Estimat Glomerular Filtration Rate > 60, BUN/Creatinine Ratio 22, Glucose Level 93, Calcium Level 8.5, Corrected Calcium 9.5, Magnesium Level 1.3L, Total Bilirubin 0.4, Aspartate Amino Transf (AST/SGOT) 20, Alanine Aminotransferase (ALT/SGPT) 27, Alkaline Phosphatase 92, Total Protein 5.2L, Albumin 2.8L, Thyroid Stimulating Hormone (TSH) 0.00L, Phosphorus Level 3.2 ECG Impression ECG Initial ECG Rhythm: S.Tach A/P-Cardiology Assessment/Admission Diagnosis Advanced MS, Altered mental status, Cachexia, Severe hyperthyroidism, Sinus tachycardia, Anemia, Meth abuse Plan Sinus tachycardia likely due to severe systemic illness. Patient has severe hyperthyroidism which needs to be treated. No evidence of atrial fibrillation. Echocardiogram is recommended. Thank you for your consultation. Please call me if you have any questions. Melly Park MD, FACP, FACC, FSCAI, FHRS, CCDS Interventional Cardiology Cardiac Electrophysiology Vascular Medicine and Endovascular Interventions Clinical Quality Measures DVT/VTE Risk/Contraindication: Risk Factor Score Per Nursin RFS Level Per Nursing on Admit: 4+=Very High Lucinda PARK MD Nov 25, 2019 13:05
--- NOTE | 2019-11-25 16:44 | NUR ---
CM/SS: Visited with pt and significant other as to plan for discharge Plan: Placement is recommended, and not for her to return home with significant other Summary: Significant other seems to be high or under the influence of something at the time of the visit. He reports that pt will need a placement, he suggest [facility] Walsh. He does give this worker Ubaldo Pulliampter phone number with [facility] [phone] to call. Call to Ubaldo Paniagua, [facility] [phone] - He reports this has been an issues with lack of care with pt. She has in home hours, but needs are still not being met. They have had 2 open [facility] Adult Protective Services Cases. He will notify Rosa Elena Casas at [facility]. Addendum: 11/26/19 at 1016 by LARRY CALDERON Referral made to [facility] care [facility]. Information faxed to [phone].
[2019-11-25] MEDS: meTOprolol 5 MG/5 ML (LOPRESSOR) VIAL IV SCH ×2 (16:49→18:25)
[2019-11-25] MEDS: morphine INJ 4 MG/ML 1 ML (VIAL/SYRINGE) IVP PRN (22:13)
[2019-11-25] MEDS ORDERED: meTOprolol 5 MG/5 ML (LOPRESSOR) VIAL IV ONE (22:15)
[2019-11-26] VITALS (24 sets, daily range): BP systolic 102–154; BP diastolic 65–107
[2019-11-26] MEDS: meTOprolol 5 MG/5 ML (LOPRESSOR) VIAL IV SCH ×2 (00:31→05:04)
[2019-11-26] MEDS: morphine INJ 4 MG/ML 1 ML (VIAL/SYRINGE) IVP PRN ×4 (03:53→22:34)
[2019-11-26 04:00] LABS: BASOPHILS % (AUTO) 0 % (0-10); EOSINOPHILS # (AUTO) 0.1 10^3/uL (0.0-0.3); EOSINOPHILS % (AUTO) 1 % (0-10); HEMATOCRIT 32 % (35-52); HEMOGLOBIN 10.5 G/DL (11.5-16.0); LYMPHOCYTES # (AUTO) 0.9 X 10^3 (1.0-4.0); LYMPHOCYTES % (AUTO) 10 % (12-44); MEAN CORPUSCULAR HEMOGLOBIN 27 PG (25-34); MEAN CORPUSCULAR HGB CONC 33 G/DL (32-36); MEAN CORPUSCULAR VOLUME 82 FL (80-99); MEAN PLATELET VOLUME 10.9 FL (7.4-10.4); MONOCYTES # (AUTO) 0.8 X 10^3 (0.0-1.0); MONOCYTES % (AUTO) 9 % (0-12); NEUTROPHILS # (AUTO) 7.3 X 10^3 (1.8-7.8); NEUTROPHILS % (AUTO) 80 % (42-75); PLATELET COUNT 411 10^3/uL (130-400); RED CELL DISTRIBUTION WIDTH 12.6 % (10.0-14.5); WHITE BLOOD COUNT 9.1 10^3/uL (4.3-11.0)
[2019-11-26 04:22] LABS: BUN/CREATININE RATIO 17; CALCIUM 8.7 MG/DL (8.5-10.1); CARBON DIOXIDE 20 MMOL/L (21-32); CHLORIDE 106 MMOL/L (98-107); CREATININE SERUM 0.48 MG/DL (0.60-1.30); GFR ESTIMATED > 60; GLUCOSE 105 MG/DL (70-105); MAGNESIUM 1.4 MG/DL (1.6-2.4); PHOSPHORUS 3.8 MG/DL (2.3-4.7); POTASSIUM 4.1 MMOL/L (3.6-5.0); SODIUM 138 MMOL/L (135-145)
[2019-11-26] MEDS: LACTATED RINGERS 1,000 ML IV SCH ×2 (05:03→12:31)
--- NOTE | 2019-11-26 05:25 | Pulmonary Progress Note ---
Subjective Date Seen by a Provider: Nov 26, 2019 Time Seen by a Provider: 06:57 Subjective/Events-last exam at beside. all questions were answered. Sepsis Event Evaluation Height, Weight, BMI Height: 5'4.00" Weight: 96lbs. 1.0oz. 43.693390im; 14.04 BMI Method:Stated Focused Exam Lactate Level 11/24/19 20:30: Lactic Acid Level 0.85 Exam Exam Vital Signs Date Time Temp Pulse Resp B/P (MAP) Pulse Ox O2 Delivery O2 Flow Rate FiO2 11/26/19 04:00 140 21 146/98 (114) 100 Room Air 11/26/19 03:51 Room Air 11/26/19 03:50 37.6 11/26/19 03:00 137 19 143/95 (111) 93 Room Air 11/26/19 02:00 138 18 149/107 (121) 97 Room Air 11/26/19 01:00 131 11/26/19 01:00 131 15 154/107 (123) 94 Room Air 11/26/19 00:32 Room Air 11/26/19 00:00 137 10 133/102 (112) 97 Room Air 11/25/19 23:49 37.2 11/25/19 23:00 126 22 166/106 (126) 97 Room Air 11/25/19 22:00 151 27 167/104 (125) 94 Room Air 11/25/19 21:00 144 25 160/99 (119) 98 Room Air 11/25/19 20:00 147 25 153/99 (117) 96 Room Air 11/25/19 20:00 Room Air 11/25/19 20:00 37.8 11/25/19 19:00 140 16 155/109 (124) 96 Room Air 11/25/19 19:00 140 11/25/19 18:00 19 149/98 (115) 97 Room Air 11/25/19 17:00 23 146/94 (111) 97 Room Air 11/25/19 16:00 37.6 11/25/19 16:00 19 154/138 (143) 97 Room Air 11/25/19 16:00 Room Air 11/25/19 15:00 144 21 143/90 (107) 96 Room Air 11/25/19 14:00 142 22 155/94 (114) 98 Room Air 11/25/19 13:00 141 23 145/97 (113) 96 Room Air 11/25/19 12:48 146 11/25/19 12:00 Room Air 11/25/19 12:00 147 39 146/92 (110) 96 Room Air 11/25/19 11:00 144 23 150/96 (114) 96 Room Air 11/25/19 10:00 144 25 152/85 (107) 95 Room Air 11/25/19 09:00 146 24 148/92 (110) 95 Room Air 11/25/19 08:00 144 21 144/99 (114) 95 Room Air 11/25/19 08:00 Room Air 11/25/19 07:00 146 27 153/87 (109) 94 Room Air 11/25/19 06:44 147 11/25/19 06:00 147 23 150/108 (122) 94 Room Air I & O 11/26/19 07:00 Intake Total 1675 ml Output Total 2125 ml Balance -450 ml Height & Weight Height: 5'4.00" Weight: 96lbs. 1.0oz. 43.247368fv; 14.04 BMI Method:Stated General Appearance: No Apparent Distress, Cachetic (Emaciated), Thin, Other HEENT: Normal ENT Inspection Neck: Other (Decreased motion of neck) Respiratory: Lungs Clear, No Accessory Muscle Use, No Respiratory Distress Cardiovascular: Tachycardia Capillary Refill: Less Than 3 Seconds Neurologic/Psychiatric: Alert Skin: Normal Color, Warm/Dry, Other (skin breakdown right hip laterally. bruises to various parts of extremitites. ) Results Lab Laboratory Tests 11/24/19 20:30 11/25/19 03:44 11/26/19 03:53 Assessment/Plan Assessment/Plan Advanced MS methamphetamine dependance -education Hyperthyroid with persistent sinus tachycardia - I question if this could be caused from methamphetamine use -Recheck thyroid studies. -Cardiology consulted -Change lopressor to propranolol -Add solucortef 40 IV Q 6 -Will discuss with pharmacy about PTU or methimazole. ELEONORA Leung JASON M DO Nov 26, 2019 05:25
--- NOTE | 2019-11-26 06:17 | Diagnostic Imaging Report ---
CLINICAL INDICATION: Patient with cachexia, tachycardia and hypothyroidism. Exam: Portable chest x-ray upright view. Comparisons: Portable chest x-ray dated 11/25/2019. Findings: Patient is rotated on exam. There is no gross interval lung infiltrate. There is no pleural effusion or pneumothorax. Pulmonary vasculature and cardiac silhouette is within normal limits. The bones show no significant abnormality as visualized. Again seen central line catheter overlying the upper mediastinal region. IMPRESSION: Patient is rotated on exam limiting evaluation. There is no interval radiographic evidence of acute cardiopulmonary process. Dictated by: Dictated on workstation # [id number]
[2019-11-26] MEDS: POTASSIUM CL 10MEQ/50ML IVPB 50 ML IV SCH (06:25)
[2019-11-26] MEDS: KCL 20 MEQ TAB (K-DUR) PO SCH (06:25)
[2019-11-26] MEDS: MAGNESIUM 1 GM/100 ML IVPB 100 ML IV SCH ×6 (06:25→12:24)
[2019-11-26] MEDS: PROPRANOLOL 20 MG (INDERAL) TABLET PO SCH ×3 (06:35→18:08)
[2019-11-26] MEDS: methylPREDNISolone 40 MG/ML (Solu-MEDROL) VIAL IV SCH ×4 (06:35→23:43)
--- NOTE | 2019-11-26 07:41 | Progress Note ---
Subjective Time Seen by a Provider: 07:37 Subjective/Events-last exam Patient has severe contractures of lower extremities. Patient developed pressure is better. Patient not able to talk today. Patient resting comfortably. Patient hyperthyroid. Meth positive. Focused Exam Lactate Level 11/24/19 20:30: Lactic Acid Level 0.85 Objective Exam Vital Signs Date Time Temp Pulse Resp B/P (MAP) Pulse Ox O2 Delivery O2 Flow Rate FiO2 11/26/19 06:00 133 20 127/91 (103) 100 Room Air 11/26/19 05:00 140 21 146/98 (114) 100 Room Air 11/26/19 04:00 140 21 146/98 (114) 100 Room Air 11/26/19 03:51 Room Air 11/26/19 03:50 37.6 11/26/19 03:00 137 19 143/95 (111) 93 Room Air 11/26/19 02:00 138 18 149/107 (121) 97 Room Air 11/26/19 01:00 131 11/26/19 01:00 131 15 154/107 (123) 94 Room Air 11/26/19 00:32 Room Air 11/26/19 00:00 137 10 133/102 (112) 97 Room Air 11/25/19 23:49 37.2 11/25/19 23:00 126 22 166/106 (126) 97 Room Air 11/25/19 22:00 151 27 167/104 (125) 94 Room Air 11/25/19 21:00 144 25 160/99 (119) 98 Room Air 11/25/19 20:00 147 25 153/99 (117) 96 Room Air 11/25/19 20:00 Room Air 11/25/19 20:00 37.8 11/25/19 19:00 140 16 155/109 (124) 96 Room Air 11/25/19 19:00 140 11/25/19 18:00 19 149/98 (115) 97 Room Air 11/25/19 17:00 23 146/94 (111) 97 Room Air 11/25/19 16:00 37.6 11/25/19 16:00 19 154/138 (143) 97 Room Air 11/25/19 16:00 Room Air 11/25/19 15:00 144 21 143/90 (107) 96 Room Air 11/25/19 14:00 142 22 155/94 (114) 98 Room Air 11/25/19 13:00 141 23 145/97 (113) 96 Room Air 11/25/19 12:48 146 11/25/19 12:00 Room Air 11/25/19 12:00 147 39 146/92 (110) 96 Room Air 11/25/19 11:00 144 23 150/96 (114) 96 Room Air 11/25/19 10:00 144 25 152/85 (107) 95 Room Air 11/25/19 09:00 146 24 148/92 (110) 95 Room Air 11/25/19 08:00 144 21 144/99 (114) 95 Room Air 11/25/19 08:00 Room Air I & O 11/26/19 07:00 Intake Total 2675 ml Output Total 2125 ml Balance 550 ml Capillary Refill : Less Than 3 Seconds General Appearance: No Apparent Distress, Cachetic, Other (Fractures of lower extremity, difficulty in communicating) HEENT: Normal ENT Inspection Neck: Normal Inspection Respiratory: Lungs Clear, No Accessory Muscle Use, No Respiratory Distress Cardiovascular: Regular Rate, Rhythm, Tachycardia Gastrointestinal: non tender, soft Extremity: Other (Contractures of lower extremities) Results Lab Laboratory Tests 11/26/19 03:53 Laboratory Tests 11/26/19 03:53: White Blood Count 9.1, Red Blood Count 3.90L, Hemoglobin 10.5L, Hematocrit 32L, Mean Corpuscular Volume 82, Mean Corpuscular Hemoglobin 27, Mean Corpuscular Hemoglobin Concent 33, Red Cell Distribution Width 12.6, Platelet Count 411H, Mean Platelet Volume 10.9H, Neutrophils (%) (Auto) 80H, Lymphocytes (%) (Auto) 10L, Monocytes (%) (Auto) 9, Eosinophils (%) (Auto) 1, Basophils (%) (Auto) 0, Neutrophils # (Auto) 7.3, Lymphocytes # (Auto) 0.9L, Monocytes # (Auto) 0.8, Eosinophils # (Auto) 0.1, Basophils # (Auto) 0.0, Sodium Level 138, Potassium Level 4.1, Chloride Level 106, Carbon Dioxide Level 20L, Anion Gap 12, Blood Urea Nitrogen 8, Creatinine 0.48L, Estimat Glomerular Filtration Rate > 60, BUN/Creatinine Ratio 17, Glucose Level 105, Calcium Level 8.7, Phosphorus Level 3.8, Magnesium Level 1.4L Microbiology 11/24/19 Blood Culture - Preliminary, Resulted No growth Assessment/Plan Assessment/Plan Assess & Plan/Chief Complaint Cachexia. Positive mass. Hyperthyroid. Multiple sclerosis history severe. Difficulty in communication. History of bipolar.. Dysphagia Clinical Quality Measures Admission Status Admission Dx Cachectic. Tachycardia. Hypertension. Positive for meth. Anemia. Hyperthyroid. Multiple sclerosis. Bipolar. Difficulty in communicating DVT/VTE Risk/Contraindication: Risk Factor Score Per Nursin RFS Level Per Nursing on Admit: 4+=Very High MARICRUZ VENTURA DO Nov 26, 2019 07:41
[2019-11-26 07:48] LABS: FREE T4 (FREE THYROXINE) 2.73 NG/DL (0.70-1.48)
[2019-11-26] MEDS: PANTOPRAZOLE 40 MG (PROTONIX) VIAL IV SCH (07:49)
[2019-11-26] MEDS: ENOXAPARIN 30 MG/0.3 ML (LOVENOX) SYR SC SCH (07:50)
[2019-11-26] MEDS: METHIMAZOLE TABLET 5 MG TABLET PO SCH ×3 (10:43→19:44)
--- NOTE | 2019-11-26 13:32 | Cardiology Progress Note ---
Cardiology SOAP Progress Note Subjective: Noncommunicative. Objective: I&O/Vital Signs 11/26/19 11/26/19 11/26/19 11/26/19 02:00 03:00 03:50 03:51 Temp 37.6 Pulse 138 137 Resp 18 19 B/P (MAP) 149/107 (121) 143/95 (111) Pulse Ox 97 93 O2 Delivery Room Air Room Air Room Air 11/26/19 11/26/19 11/26/19 11/26/19 04:00 05:00 06:00 07:00 Pulse 140 140 133 109 Resp 21 21 20 B/P (MAP) 146/98 (114) 146/98 (114) 127/91 (103) Pulse Ox 100 100 100 O2 Delivery Room Air Room Air Room Air 11/26/19 11/26/19 11/26/19 11/26/19 07:00 08:00 08:00 09:00 Pulse 112 105 108 Resp 20 20 21 B/P (MAP) 120/79 (93) 127/85 (99) 133/92 (106) Pulse Ox 95 99 99 O2 Delivery Room Air Room Air Room Air Room Air 11/26/19 11/26/19 11/26/19 11/26/19 10:00 11:00 12:00 12:00 Pulse 106 109 108 Resp 19 18 23 B/P (MAP) 126/81 (96) 127/81 (96) 110/77 (88) Pulse Ox 92 91 90 O2 Delivery Room Air Room Air Room Air Room Air 11/26/19 11/26/19 12:19 12:47 Temp 37.8 Pulse 108 11/26/19 00:00 Intake Total 1600 ml Output Total 675 ml Balance 925 ml Weight (Pounds): 96 Weight (Ounces): 1.0 Weight (Calculated Kilograms): 43.495145 Constitutional: other (cachectic) Respiratory: lungs clear to auscultation Cardiovascular: regular rate-rhythm, tachycardia, S1 and S2 Gastrointestional: soft, audible bowel sounds Neurologic/Psychiatric: other (noncommunicative) Results/Procedures: Labs Laboratory Tests 11/26/19 03:53: White Blood Count 9.1, Red Blood Count 3.90L, Hemoglobin 10.5L, Hematocrit 32L, Mean Corpuscular Volume 82, Mean Corpuscular Hemoglobin 27, Mean Corpuscular Hemoglobin Concent 33, Red Cell Distribution Width 12.6, Platelet Count 411H, Mean Platelet Volume 10.9H, Neutrophils (%) (Auto) 80H, Lymphocytes (%) (Auto) 10L, Monocytes (%) (Auto) 9, Eosinophils (%) (Auto) 1, Basophils (%) (Auto) 0, Neutrophils # (Auto) 7.3, Lymphocytes # (Auto) 0.9L, Monocytes # (Auto) 0.8, Eosinophils # (Auto) 0.1, Basophils # (Auto) 0.0, Sodium Level 138, Potassium Level 4.1, Chloride Level 106, Carbon Dioxide Level 20L, Anion Gap 12, Blood Urea Nitrogen 8, Creatinine 0.48L, Estimat Glomerular Filtration Rate > 60, BUN/Creatinine Ratio 17, Glucose Level 105, Calcium Level 8.7, Phosphorus Level 3.8, Magnesium Level 1.4L, Thyroid Stimulating Hormone (TSH) 0.00L, Free Thyroxine 2.73H 11/26/19 08:23: Microbiology 11/24/19 MRSA Screen - Final, Complete MRSA not isolated 11/24/19 Blood Culture - Preliminary, Resulted No growth A/P: Assessment/Dx: Advanced MS, Altered mental status, Cachexia, Severe hyperthyroidism, Sinus tachycardia, Anemia, Meth abuse Plan: Sinus tachycardia likely due to severe systemic illness. Patient has severe hyperthyroidism which needs to be treated. No evidence of atrial fibrillation. Echocardiogram done 11/25/2019 shows normal LV function with no significant valvular heart disease. Thank you for your consultation. Please call me if you have any questions. Melly Park MD, FACP, FACC, FSCAI, FHRS, CCDS Interventional Cardiology Cardiac Electrophysiology Vascular Medicine and Endovascular Interventions Focused Exam Lactate Level 11/24/19 20:30: Lactic Acid Level 0.85 Lucinda PARK MD Nov 26, 2019 13:32
--- NOTE | 2019-11-26 14:14 | NUR ---
"RD ASSESSMENT PMHx: HTN; MS; Bipolar; schizophrenia; cachexia; hyperthyroidism; hx of meth use/abuse PT INTERACTION: Pt was semi-awake during nutrition assessment. Note pt has been non-communicative, per chart review. Note present at bedside. states pt's current appetite is poor, but had been okay prior to admit. Note avg PO intake of 35% x1d, per chart review. states pt follows a regular diet at home, and has no issues with chewing/swallowing food. Note pt underwent swallow study on 11/25, and resulted in pt being prescribed DYS1 Pureed diet with Harper thick liquids, per chart review. states pt has no issues with n/v/c/d at this time, and that her last BM was 11/24. Note pt not currently on bowel regimen per chart review. states pt has had no recent wt changes. Note 14# wt loss x2mon per chart review. This is significant wt loss at 14% x2mon. Upon visual exam, pt was covered up mostly, but appeared malnourished and cachectic with visible signs of muscle/fat wasting in the temporal region and in the suborbital regions of the face. Note pt has BMI of 14, which is classified as Underweight. Given PO intake, wt hx, and visual exam, pt meets criteria for malnutrition per ASPEN guidelines. ABNORMAL NUTRITION-RELATED LAB VALUES LOW: cr 0.48; Mg 1.4 HIGH: Est. kcal needs: 4227-0836 kcal | 25-30 kcal/kg IBW, based on IBW of 59.1kg Est. Pro needs: 59-71 g Pro | 1.0-1.2 g Pro/kg IBW, based on IBW of 59.1kg PES STATEMENT: Inadequate oral intake (NI-2.1) related to loss of appetite | inability to self-feed as evidenced by pt () interview | chart review | PO intake 35% x1d Underweight (NC-3.1) as related to increased energy needs | inadequate energy intake as evidenced by BMI 14.0 | malnutrition | visual exam (muscle wasting in temporal region) | poor PO intake at home Chronic disease related malnutrition (NC-4.1.2) related to physiological causes resulting in diminished intake (MS) as evidenced by wt loss of 14% x2mon | visual exam | poor PO intake INTERVENTION: Continue with current diet order of DYS1 Pureed diet, with Harper-thick liquids. If PO intake remains low, pt may be a candidate for enteral nutrition. Will continue to follow and reassess as pt needs and status change. MONITOR/EVALUATE: PO Intake; Plan of Care; Hydration Status; Weight Status; Lab Values Pauline Swann, MS, RD, LD"
--- NOTE | 2019-11-26 16:09 | NUR ---
CM/SS: Visited with pt as to plan for discharge Plan: senior living care facility sought after discharge Summary: [facility] term care facility has declined pt, pt suggested [facility] facility. [facility], are full and call to request that a referral be made to their sister facility of [facility]. They will forward referral to them. This worker attempted to visit with significant other at bedside and was notified when he arrived at the hospital, upon being at room he was no longer at bedside was not present at the time.
[2019-11-26] MEDS ORDERED: LORazepam INJ 2 MG/ML (ATIVAN) VIAL ONE (20:51)
[2019-11-26] MEDS: LORazepam INJ 2 MG/ML (ATIVAN) VIAL IVP PRN (20:56)
--- NOTE | 2019-11-26 21:00 | NUR ---
PT S/O AT BEDSIDE- APPEARS TO BE HIGH (EYES WIDE, TALKING FAST AND REPEATING SELF) ALSO ACCUSING NURSING STAFF OF BEING LATE ON PAIN MEDS. EDUCATION PROVIDED ON FREQUENCY OF PAIN MEDS. REFUSE AND RECYCLING WORKER AND SECURITY NOTIFIED OF SITUATION WITH PT S/O. SECURITY ESCORTED PT S/O OUT OF UNIT. DOORS LOCKED AT THIS TIME. PT UNABLE TO VERBALIZE WISHES
[2019-11-26] MEDS ORDERED: LORazepam INJ 2 MG/ML (ATIVAN) VIAL IV ONE (21:15)
--- NOTE | 2019-11-26 22:00 | NUR ---
PT AGITATED AND ATTEMPTING TO PULL AT LINES AND IVS AT THIS TIME. MITTENS APPLIED AND SITTER AT BEDSIDE.
--- NOTE | 2019-11-26 22:00 | NUR ---
PT REMOVED CENTRAL LINE AT THIS TIME. CATHETER TIP INTACT. SUTURES REMOVED AND GAUZE APPLIED. 20 IN R FOREARM STARTED AT THIS TIME
[2019-11-26] MEDS ORDERED: HALOPERIDOL 5 MG/ML (HALDOL) AMP ONE (23:00)
[2019-11-26] MEDS: HALOPERIDOL 5 MG/ML (HALDOL) AMP IM PRN (23:52)
[2019-11-27] VITALS (11 sets, daily range): BP systolic 108–138; BP diastolic 62–78
--- NOTE | 2019-11-27 00:45 | NUR ---
E- ICU CONTACTED DUE TO PATIENT HAVING PROPRANOLOL 20 MG AND PT BEING UNABLE TO TAKE PO MEDS AT THIS TIME. E-ICU INFORMED OF PT CURRENT HEART RATE. AWAITING ORDERS AT THIS TIME.
[2019-11-27] MEDS: LACTATED RINGERS 1,000 ML IV SCH ×3 (01:15→15:58)
[2019-11-27] MEDS: PROPRANOLOL 20 MG (INDERAL) TABLET PO SCH ×4 (01:38→19:55)
[2019-11-27] MEDS ORDERED: meTOprolol 5 MG/5 ML (LOPRESSOR) VIAL ONE (02:08)
[2019-11-27] MEDS ORDERED: meTOprolol 5 MG/5 ML (LOPRESSOR) VIAL IV ONE ×2 (02:15→04:00)
[2019-11-27 03:33] LABS: BASOPHILS % (AUTO) 0 % (0-10); EOSINOPHILS % (AUTO) 0 % (0-10); HEMATOCRIT 31 % (35-52); HEMOGLOBIN 9.7 G/DL (11.5-16.0); LYMPHOCYTES # (AUTO) 0.3 X 10^3 (1.0-4.0); LYMPHOCYTES % (AUTO) 5 % (12-44); MEAN CORPUSCULAR HEMOGLOBIN 26 PG (25-34); MEAN CORPUSCULAR HGB CONC 31 G/DL (32-36); MEAN CORPUSCULAR VOLUME 82 FL (80-99); MEAN PLATELET VOLUME 10.6 FL (7.4-10.4); MONOCYTES # (AUTO) 0.1 X 10^3 (0.0-1.0); MONOCYTES % (AUTO) 2 % (0-12); NEUTROPHILS # (AUTO) 5.8 X 10^3 (1.8-7.8); NEUTROPHILS % (AUTO) 93 % (42-75); PLATELET COUNT 372 10^3/uL (130-400); RED CELL DISTRIBUTION WIDTH 12.8 % (10.0-14.5); WHITE BLOOD COUNT 6.3 10^3/uL (4.3-11.0)
[2019-11-27 03:52] LABS: BUN/CREATININE RATIO 30; CALCIUM 8.7 MG/DL (8.5-10.1); CARBON DIOXIDE 24 MMOL/L (21-32); CHLORIDE 111 MMOL/L (98-107); CREATININE SERUM 0.46 MG/DL (0.60-1.30); GFR ESTIMATED > 60; GLUCOSE 137 MG/DL (70-105); MAGNESIUM 1.7 MG/DL (1.6-2.4); PHOSPHORUS 4.1 MG/DL (2.3-4.7); POTASSIUM 3.9 MMOL/L (3.6-5.0); SODIUM 141 MMOL/L (135-145)
[2019-11-27] MEDS ORDERED: MAGNESIUM 1 GM/100 ML IVPB 200 ML IV ONE (05:02)
--- NOTE | 2019-11-27 05:02 | Pulmonary Progress Note ---
Subjective Time Seen by a Provider: 04:59 Subjective/Events-last exam No complications noted. Sepsis Event Evaluation Height, Weight, BMI Height: 5'4.00" Weight: 96lbs. 1.0oz. 43.560329xr; 14.04 BMI Method:Stated Focused Exam Lactate Level 11/24/19 20:30: Lactic Acid Level 0.85 Exam Exam Vital Signs Date Time Temp Pulse Resp B/P (MAP) Pulse Ox O2 Delivery O2 Flow Rate FiO2 11/27/19 04:00 96 13 123/72 (89) 96 Room Air 11/27/19 03:18 36.3 11/27/19 03:04 Room Air 11/27/19 03:00 96 24 138/78 (98) 99 Room Air 11/27/19 02:00 101 18 119/73 (88) 98 Room Air 11/27/19 01:00 101 11/27/19 01:00 101 21 133/76 (95) 99 Room Air 11/27/19 00:00 102 29 130/73 (92) 98 Room Air 11/26/19 23:48 Room Air 11/26/19 23:47 37.2 11/26/19 23:00 106 30 131/73 (92) 97 Room Air 11/26/19 22:00 107 18 112/93 (99) 98 Room Air 11/26/19 21:00 110 19 119/73 (88) 95 Room Air 11/26/19 20:00 109 17 118/70 (86) 100 Room Air 11/26/19 19:51 Room Air 11/26/19 19:21 37.4 11/26/19 19:00 108 16 106/70 (82) Room Air 11/26/19 19:00 110 11/26/19 18:00 111 116/99 (105) Room Air 11/26/19 17:00 101 19 107/67 (80) Room Air 11/26/19 16:00 105 27 102/67 (79) 97 Room Air 11/26/19 16:00 Room Air 11/26/19 15:26 37.5 11/26/19 15:00 98 9 104/65 (78) 98 Room Air 11/26/19 14:00 96 105/67 (80) 96 Room Air 11/26/19 13:00 103 20 106/65 (79) 94 Room Air 11/26/19 12:47 108 11/26/19 12:19 37.8 11/26/19 12:00 108 23 110/77 (88) 90 Room Air 11/26/19 12:00 Room Air 11/26/19 11:00 109 18 127/81 (96) 91 Room Air 11/26/19 10:00 106 19 126/81 (96) 92 Room Air 11/26/19 09:00 108 21 133/92 (106) 99 Room Air 11/26/19 08:00 Room Air 11/26/19 08:00 105 20 127/85 (99) 99 Room Air 11/26/19 07:00 112 20 120/79 (93) 95 Room Air 11/26/19 07:00 109 11/26/19 06:00 133 20 127/91 (103) 100 Room Air 11/26/19 05:00 140 21 146/98 (114) 100 Room Air I & O 11/27/19 07:00 Intake Total 1325 ml Output Total 2725 ml Balance -1400 ml Height & Weight Height: 5'4.00" Weight: 96lbs. 1.0oz. 43.183124ja; 14.04 BMI Method:Stated General Appearance: No Apparent Distress, Cachetic (Emaciated), Thin, Other HEENT: Normal ENT Inspection Neck: Other (Decreased motion of neck) Respiratory: Lungs Clear, No Accessory Muscle Use, No Respiratory Distress Cardiovascular: Tachycardia Capillary Refill: Less Than 3 Seconds Gastrointestinal: non tender, soft Extremity: Other (Contractures of lower extremities) Neurologic/Psychiatric: Alert Skin: Normal Color, Warm/Dry, Other (skin breakdown right hip laterally. bruises to various parts of extremitites. ) Results Lab Laboratory Tests 11/26/19 03:53 11/27/19 03:20 Assessment/Plan Assessment/Plan Advanced MS methamphetamine dependance -education Hyperthyroid with persistent sinus tachycardia - I question if this could be caused from methamphetamine use -Cardiology consulted -propranolol -Prednisone -methimazole. Cachexia Pt is doing well from pulmonary standpoint. HR is better controlled. I am going to transfer pt to 4th floor and continue current meds. I am going to sign off please call with any questions or concerns. DOROTHY CREWS DO Nov 27, 2019 05:02
[2019-11-27] MEDS: MAGNESIUM 1 GM/100 ML IVPB 100 ML IV SCH ×2 (05:08→05:09)
[2019-11-27] MEDS: predniSONE 20 MG TAB PO SCH (05:35)
--- NOTE | 2019-11-27 06:06 | NUR ---
REPORT GIVEN TO ELMIRA LAURA. NO QUESTIONS OR CONCERNS NOTED AT THIS TIME.
--- NOTE | 2019-11-27 06:33 | NUR ---
pt arrived on floor accompanied by staff. agree with previous assessment.
--- NOTE | 2019-11-27 07:41 | Progress Note ---
Subjective Time Seen by a Provider: 07:38 Subjective/Events-last exam . Patient resting comfortably this a.m. Patient pulled out IV site. Patient sent to medical floor today from ICU Focused Exam Lactate Level 11/24/19 20:30: Lactic Acid Level 0.85 Objective Exam Vital Signs Date Time Temp Pulse Resp B/P (MAP) Pulse Ox O2 Delivery O2 Flow Rate FiO2 11/27/19 07:00 85 11/27/19 06:00 93 19 108/64 (79) 98 Room Air 11/27/19 05:00 97 29 134/72 (92) 97 Room Air 11/27/19 04:00 96 13 123/72 (89) 96 Room Air 11/27/19 03:18 36.3 11/27/19 03:04 Room Air 11/27/19 03:00 96 24 138/78 (98) 99 Room Air 11/27/19 02:00 101 18 119/73 (88) 98 Room Air 11/27/19 01:00 101 11/27/19 01:00 101 21 133/76 (95) 99 Room Air 11/27/19 00:00 102 29 130/73 (92) 98 Room Air 11/26/19 23:48 Room Air 11/26/19 23:47 37.2 11/26/19 23:00 106 30 131/73 (92) 97 Room Air 11/26/19 22:00 107 18 112/93 (99) 98 Room Air 11/26/19 21:00 110 19 119/73 (88) 95 Room Air 11/26/19 20:00 109 17 118/70 (86) 100 Room Air 11/26/19 19:51 Room Air 11/26/19 19:21 37.4 11/26/19 19:00 108 16 106/70 (82) Room Air 11/26/19 19:00 110 11/26/19 18:00 111 116/99 (105) Room Air 11/26/19 17:00 101 19 107/67 (80) Room Air 11/26/19 16:00 105 27 102/67 (79) 97 Room Air 11/26/19 16:00 Room Air 11/26/19 15:26 37.5 11/26/19 15:00 98 9 104/65 (78) 98 Room Air 11/26/19 14:00 96 105/67 (80) 96 Room Air 11/26/19 13:00 103 20 106/65 (79) 94 Room Air 11/26/19 12:47 108 11/26/19 12:19 37.8 11/26/19 12:00 108 23 110/77 (88) 90 Room Air 11/26/19 12:00 Room Air 11/26/19 11:00 109 18 127/81 (96) 91 Room Air 11/26/19 10:00 106 19 126/81 (96) 92 Room Air 11/26/19 09:00 108 21 133/92 (106) 99 Room Air 11/26/19 08:00 Room Air 11/26/19 08:00 105 20 127/85 (99) 99 Room Air I & O 11/27/19 07:00 Intake Total 1425 ml Output Total 3075 ml Balance -1650 ml Capillary Refill : Less Than 3 Seconds General Appearance: No Apparent Distress, Thin HEENT: Other (No discharge from ears) Neck: Non Tender Respiratory: Lungs Clear, No Accessory Muscle Use, No Respiratory Distress Cardiovascular: Regular Rate, Rhythm, No Murmur Gastrointestinal: non tender, soft Extremity: Other (Lower extremities severe contractures) Results Lab Laboratory Tests 11/27/19 03:20 Laboratory Tests 11/26/19 08:23: Free Triiodothyronine 5.24H 11/27/19 03:20: White Blood Count 6.3, Red Blood Count 3.75L, Hemoglobin 9.7L, Hematocrit 31L, Mean Corpuscular Volume 82, Mean Corpuscular Hemoglobin 26, Mean Corpuscular Hemoglobin Concent 31L, Red Cell Distribution Width 12.8, Platelet Count 372, Mean Platelet Volume 10.6H, Neutrophils (%) (Auto) 93H, Lymphocytes (%) (Auto) 5L, Monocytes (%) (Auto) 2, Eosinophils (%) (Auto) 0, Basophils (%) (Auto) 0, Neutrophils # (Auto) 5.8, Lymphocytes # (Auto) 0.3L, Monocytes # (Auto) 0.1, Eosinophils # (Auto) 0.0, Basophils # (Auto) 0.0, Sodium Level 141, Potassium Level 3.9, Chloride Level 111H, Carbon Dioxide Level 24, Anion Gap 6, Blood Urea Nitrogen 14, Creatinine 0.46L, Estimat Glomerular Filtration Rate > 60, BUN/Creatinine Ratio 30, Glucose Level 137H, Calcium Level 8.7, Phosphorus Level 4.1, Magnesium Level 1.7 Microbiology 11/24/19 MRSA Screen - Final, Complete MRSA not isolated 11/24/19 Blood Culture - Preliminary, Resulted No growth Assessment/Plan Assessment/Plan Assess & Plan/Chief Complaint Cachexia. Positive mass. Hyperthyroid. Multiple sclerosis history severe. Difficulty in communication. History of bipolar.. Dysphagia. . 11/27/2019. Cachexia. Positive for methamphetamine. Hyperthyroid. Multiple sclerosis severe. History of bipolar. Dysphagia Clinical Quality Measures Admission Status Admission Dx Cachectic. Tachycardia. Hypertension. Positive for meth. Anemia. Hyperthyroid. Multiple sclerosis. Bipolar. Difficulty in communicating DVT/VTE Risk/Contraindication: Risk Factor Score Per Nursin RFS Level Per Nursing on Admit: 4+=Very High MARICRUZ VENTURA DO Nov 27, 2019 07:41
--- NOTE | 2019-11-27 08:30 | Diagnostic Imaging Report ---
Portable semierect AP chest at 327 hours. INDICATION: Tachycardia. FINDINGS: As on the prior exam of 11/26/2019, the patient is rotated. The heart size is stable. The lungs are generally clear and well aerated. There is no sign of failure, pneumonia or pleural effusion. There is no pneumothorax identified. There is a nodular density lying just superior to the right hemidiaphragm. I suspect that this is related to the right nipple. The mediastinum is not widened. The osseous structures are intact. On the prior exam, there was a central venous catheter in place on the right. That catheter has been removed. IMPRESSION: Aside from the removal of the central venous catheter on the right, there has been no significant change. Dictated by: Dictated on workstation # [id number]
[2019-11-27] MEDS: PANTOPRAZOLE 40 MG (PROTONIX) VIAL IV SCH (10:04)
[2019-11-27] MEDS: METHIMAZOLE TABLET 5 MG TABLET PO SCH ×2 (10:04→21:10)
[2019-11-27] MEDS: ENOXAPARIN 30 MG/0.3 ML (LOVENOX) SYR SC SCH (10:04)
[2019-11-27] MEDS: risperiDONE 1 MG (RisperDAL) TAB PO SCH ×2 (10:04→21:10)
--- NOTE | 2019-11-27 10:29 | Cardiology Progress Note ---
Cardiology SOAP Progress Note Subjective: Noncommunicative. Objective: I&O/Vital Signs 11/26/19 11/26/19 11/26/19 11/27/19 23:00 23:47 23:48 00:00 Temp 37.2 Pulse 106 102 Resp 30 29 B/P (MAP) 131/73 (92) 130/73 (92) Pulse Ox 97 98 O2 Delivery Room Air Room Air Room Air 11/27/19 11/27/19 11/27/19 11/27/19 01:00 01:00 02:00 03:00 Pulse 101 101 101 96 Resp 21 18 24 B/P (MAP) 133/76 (95) 119/73 (88) 138/78 (98) Pulse Ox 99 98 99 O2 Delivery Room Air Room Air Room Air 11/27/19 11/27/19 11/27/19 11/27/19 03:04 03:18 04:00 05:00 Temp 36.3 Pulse 96 97 Resp 13 29 B/P (MAP) 123/72 (89) 134/72 (92) Pulse Ox 96 97 O2 Delivery Room Air Room Air Room Air 11/27/19 11/27/19 11/27/19 06:00 07:00 07:27 Temp 36.5 Pulse 93 85 88 Resp 19 20 B/P (MAP) 108/64 (79) 123/72 (89) Pulse Ox 98 99 O2 Delivery Room Air Room Air 11/26/19 23:59 Intake Total 1225 ml Output Total 1225 ml Balance 0 ml Weight (Pounds): 96 Weight (Ounces): 1.0 Weight (Calculated Kilograms): 43.719684 Constitutional: other (cachectic) Respiratory: lungs clear to auscultation Cardiovascular: regular rate-rhythm, tachycardia, S1 and S2 Gastrointestional: soft, audible bowel sounds Neurologic/Psychiatric: other (noncommunicative) Results/Procedures: Labs Laboratory Tests 11/27/19 03:20: White Blood Count 6.3, Red Blood Count 3.75L, Hemoglobin 9.7L, Hematocrit 31L, Mean Corpuscular Volume 82, Mean Corpuscular Hemoglobin 26, Mean Corpuscular Hemoglobin Concent 31L, Red Cell Distribution Width 12.8, Platelet Count 372, Mean Platelet Volume 10.6H, Neutrophils (%) (Auto) 93H, Lymphocytes (%) (Auto) 5L, Monocytes (%) (Auto) 2, Eosinophils (%) (Auto) 0, Basophils (%) (Auto) 0, Neutrophils # (Auto) 5.8, Lymphocytes # (Auto) 0.3L, Monocytes # (Auto) 0.1, Eosinophils # (Auto) 0.0, Basophils # (Auto) 0.0, Sodium Level 141, Potassium Level 3.9, Chloride Level 111H, Carbon Dioxide Level 24, Anion Gap 6, Blood Urea Nitrogen 14, Creatinine 0.46L, Estimat Glomerular Filtration Rate > 60, BUN/Crea tinine Ratio 30, Glucose Level 137H, Calcium Level 8.7, Phosphorus Level 4.1, Magnesium Level 1.7 Microbiology 11/24/19 MRSA Screen - Final, Complete MRSA not isolated 11/24/19 Blood Culture - Preliminary, Resulted No growth A/P: Assessment/Dx: Advanced MS, Altered mental status, Cachexia, Severe hyperthyroidism, Sinus tachycardia, Anemia, Meth abuse Plan: Sinus tachycardia likely due to severe systemic illness. Patient has severe hyperthyroidism which needs to be treated. No evidence of atrial fibrillation. Echocardiogram done 11/25/2019 shows normal LV function with no significant valvular heart disease. Cardiology to sign off. Dr. Decker covering cardiology service from this afternoon. Thank you for your consultation. Please call me if you have any questions. Melly Park MD, FACP, FACC, FSCAI, FHRS, CCDS Interventional Cardiology Cardiac Electrophysiology Vascular Medicine and Endovascular Interventions Focused Exam Lactate Level 11/24/19 20:30: Lactic Acid Level 0.85 Lucinda PARK MD Nov 27, 2019 10:29
--- NOTE | 2019-11-27 11:12 | NUR ---
CM/SS: Visited with pt as to her plan for discharge Plan: Pt to go to [facility] when ready Summary: [facility] been [facility]. Phone call to Dr. Larios letting him know about the placement and request to complete the paperwork to obtain a guardian. He would like for pt to stay in hospital and discharge on Saturday11/30/2019. Guardianship physician statement is faxed to Dr Larios [phone]. Call to Ubaldo Dumont - [phone] - notifying him that pt has been accepted to [facility] and that Misty Casas has been contacted, and the form for guardianship faxed to this worker. Rosa Elena Casas, DCF notified that pt will go to [facility] on 11-30-2019. Call to significant other Cy Victor, , to notify of placement. Unable to reach.
--- NOTE | 2019-11-27 14:01 | Physical Therapy Evaluation ---
PT Evaluation-General Medical Diagnosis Admission Date Nov 24, 2019 at 20:50 Medical Diagnosis: Falls/Decreased Level of Conscience Onset Date: Nov 24, 2019 Therapy Diagnosis Therapy Diagnosis: severe contractures bilateral LE Height/Weight Height (Feet): 5 Height (Inches): 4.00 Weight (Pounds): 96 Weight (Ounces): 1.0 Precautions Precautions/Isolations: Aspiration, Fall Prevention, Standard Precautions Weight Bear Status Right Lower Extremity: Right Weight Bearing/Tolerated Left Lower Extremity: Left Weight Bearing/Tolerated Referral Physician: Ric Reason for Referral: Evaluation/Treatment Medical History Additional Medical History MS/pancreatitis/bipolar/Schizophrenia/marijuana and meth use Current History ER secondary fall off of couch Reviewed History: Yes Social History Current Living Status: Significant Other Prior Prior Level of Function SCALE: Activities may be completed with or without assistive devices. 5-Vhuitiofid-wzaipxl completes the activity by him/herself with no assistance f rom a helper. 5-Set-up or Clean-up Assistance-helper sets up or cleans up; patient completes activity. [place] assists only prior to or following the activity. 4-Supervision or Touching Assistance-helper provides verbal cues and/or touching/steadying and/or contact guard assistance as patient completes activity. Assistance may be provided throughout the activity or intermittently. 3-Partial/Moderate Assistance-helper does LESS THAN HALF the effort. [place] lifts, holds or supports trunk or limbs, but provides less than half the effort. 2-Substantial/Maximal Assistance-helper does MORE THAN HALF the effort. [place] lifts or holds trunk or limbs and provides more than half the effort. 4-Hlbkjpeye-aujnwo does ALL the effort. Patient does none of the effort to complete the activity. Or, the assistance of 2 or more helpers is required for the patient to complete the activity. If activity was not attempted, code reason: 7-Patient Refused. 9-Not Applicable-not attempted and the patient did not perform the activity before the current illness, exacerbation or injury. 10-Not Attempted due to Environmental Limitations-(lack of equipment, weather restraints, etc.). 88-Not Attempted due to Medical Conditions or Safety Concerns. Bed Mobility: 1 Transfers (B,C,W/C): 1 PT Evaluation-Current Subjective Patient starts yelling when PT addressed bilateral LE ROM. Pain Numeric Pain Scale: 10-Worst Possible Pain Location: Right, Left Location Body Site: Generalized Pain Description: Tightness Comment: FLACC due to bilateral LE contractures Objective Patient Orientation: Confused Attachments: Chambers Catheter, IV ROM/Strength ROM Lower Extremities bilateral LE contracted with knees resting on chest/left LE able to range ~40% with patient yelling in pain/right LE unable to range Assessment/Needs 39 y.o female, with severe bilateral LE and cervical contractures, does not require skilled therapy intervention. PT instructed nursing staff to range bilateral LE and neck PRN with cleansing/bathing. Rehab Potential: Poor PT Plan Problem List Problem List: Bed Mobility, ROM Treatment/Plan Treatment Plan: Discontinue PT Treatment Duration: Nov 27, 2019 Frequency: 1 time per week Estimated Hrs Per Day: .25 hour per day Time/GCodes Time In: 1250 Time Out: 1300 Total Billed Treatment Time: 10 Total Billed Treatment 1 visit EVLowC 10 min YOLI CEDEÑO PT Nov 27, 2019 14:01
[2019-11-27] MEDS: LORazepam INJ 2 MG/ML (ATIVAN) VIAL IVP PRN ×2 (15:58→21:10)
--- NOTE | 2019-11-27 21:00 | NUR ---
2100- AUDIBLE MOANING COULD BE HEARD FROM PATIENT'S ROOM. UPON ASSESSMENT, PATIENT APPEARS TO BE RESTLESS AND UPSET. 2109-TO HELP WITH ANY ANXIETY OR AGITATION THE PATIENT MAY HAVE BEEN EXPERIENCING, THIS RN GAVE ATIVAN 1MG IV AND HALDOL 5MG IM ORDERED, TO HELP MAKE PATIENT MORE COMFORTABLE AND RELAXED. 0- PATIENT IS NO LONGER MOANING AND APPEARS TO BE MORE RELAXED. WILL CONTINUE TO MONITOR PATIENT FOR S/S OF PAIN, ANXIETY, AND RESTLESSNESS.
[2019-11-27] MEDS: HALOPERIDOL 5 MG/ML (HALDOL) AMP IM PRN (21:10)
[2019-11-28] VITALS (7 sets, daily range): BP systolic 117–165; BP diastolic 61–98
[2019-11-28] MEDS: PROPRANOLOL 20 MG (INDERAL) TABLET PO SCH ×5 (00:41→23:51)
[2019-11-28] MEDS: predniSONE 20 MG TAB PO SCH (05:18)
[2019-11-28] MEDS: morphine INJ 4 MG/ML 1 ML (VIAL/SYRINGE) IVP PRN ×3 (05:19→20:59)
[2019-11-28 05:27] LABS: BASOPHILS % (AUTO) 0 % (0-10); EOSINOPHILS % (AUTO) 1 % (0-10); HEMATOCRIT 30 % (35-52); HEMOGLOBIN 9.3 G/DL (11.5-16.0); LYMPHOCYTES # (AUTO) 0.8 X 10^3 (1.0-4.0); LYMPHOCYTES % (AUTO) 16 % (12-44); MEAN CORPUSCULAR HEMOGLOBIN 27 PG (25-34); MEAN CORPUSCULAR HGB CONC 31 G/DL (32-36); MEAN CORPUSCULAR VOLUME 84 FL (80-99); MEAN PLATELET VOLUME 10.8 FL (7.4-10.4); MONOCYTES # (AUTO) 0.5 X 10^3 (0.0-1.0); MONOCYTES % (AUTO) 11 % (0-12); NEUTROPHILS # (AUTO) 3.5 X 10^3 (1.8-7.8); NEUTROPHILS % (AUTO) 72 % (42-75); PLATELET COUNT 339 10^3/uL (130-400); RED CELL DISTRIBUTION WIDTH 12.5 % (10.0-14.5); WHITE BLOOD COUNT 4.8 10^3/uL (4.3-11.0)
[2019-11-28 05:48] LABS: BUN/CREATININE RATIO 33; CALCIUM 8.4 MG/DL (8.5-10.1); CARBON DIOXIDE 22 MMOL/L (21-32); CHLORIDE 110 MMOL/L (98-107); CREATININE SERUM 0.46 MG/DL (0.60-1.30); GFR ESTIMATED > 60; GLUCOSE 85 MG/DL (70-105); MAGNESIUM 1.4 MG/DL (1.6-2.4); PHOSPHORUS 2.7 MG/DL (2.3-4.7); POTASSIUM 3.4 MMOL/L (3.6-5.0); SODIUM 143 MMOL/L (135-145)
[2019-11-28] MEDS: PANTOPRAZOLE 40 MG (PROTONIX) VIAL IV SCH (09:41)
[2019-11-28] MEDS: ENOXAPARIN 30 MG/0.3 ML (LOVENOX) SYR SC SCH (09:43)
[2019-11-28] MEDS: METHIMAZOLE TABLET 5 MG TABLET PO SCH ×2 (09:44→19:51)
[2019-11-28] MEDS: risperiDONE 1 MG (RisperDAL) TAB PO SCH ×2 (09:44→19:51)
--- NOTE | 2019-11-28 10:45 | NUR ---
MS 2MG IV FOR APPARENT DISCOMFORT. MOANING.
--- NOTE | 2019-11-28 11:50 | Progress Note - Hospitalist ---
Subjective HPI/CC On Admission Date Seen by Provider: Nov 28, 2019 Time Seen by Provider: 11:45 Subjective/Events-last exam Pt laying in bed moaning. Found nurse and informed who will give pain meds. Patient unable to provide ROS. Objective Exam Vital Signs Vital Signs Date Time Temp Pulse Resp B/P (MAP) Pulse Ox O2 Delivery O2 Flow Rate FiO2 11/28/19 08:00 36.4 84 16 165/78 (107) 100 Room Air Capillary Refill : Less Than 3 Seconds General Appearance: Chronically ill, Cachetic, Mild Distress Respiratory: Lungs Clear, No Accessory Muscle Use Cardiovascular: Regular Rate, Rhythm, No Murmur Results/Procedures Lab Laboratory Tests 11/28/19 04:44 11/28/19 04:49 Patient resulted labs reviewed. Assessment/Plan Assessment and Plan Assess & Plan/Chief Complaint Cachexia- sizing machine and drier operator consulted, appreciate recs, weight increasing since admission Positive for methamphetamine.- Adult protective services notified Hyperthyroid- on methimazole Multiple sclerosis severe- may need hospice/palliative care, morphine for pain History of bipolar. Dysphagia- speech consulted, appreciate recs Clinical Quality Measures DVT/VTE Risk/Contraindication: Risk Factor Score Per Nursin RFS Level Per Nursing on Admit: 4+=Very High LLUVIA MORALES MD Nov 28, 2019 11:50
[2019-11-28] MEDS: LORazepam INJ 2 MG/ML (ATIVAN) VIAL IVP PRN (13:30)
--- NOTE | 2019-11-28 14:00 | NUR ---
SO HERE WITH 2 BAGS OF FOOD AND 3 DRINKS. WANTING TO GIVE PT FOOD AND LIQUID. INFORMED SO THAT PT WAS ON SPECIAL DIET TO PREVENT ASPIRATION AND HE COULD NOT GIVE HER FOOD OR DRINK. STATES HE UNDERSTANDS. THIS RN CHARTING OUTSIDE PT ROOM AND MONITORING, BUT TELESITTER TO PTS ROOM TO ASSIST WITH COMPLIANCE.
[2019-11-28] MEDS: LACTATED RINGERS 1,000 ML IV SCH (18:02)
--- NOTE | 2019-11-28 18:36 | NUR ---
HALDOL 5MG FOR AGITATION.
[2019-11-28] MEDS: HALOPERIDOL 5 MG/ML (HALDOL) AMP IM PRN ×2 (18:39→23:52)
[2019-11-29 04:00] VITALS: BP 135/85
[2019-11-29] MEDS: LORazepam INJ 2 MG/ML (ATIVAN) VIAL IVP PRN ×3 (04:31→23:06)
[2019-11-29 06:04] LABS: BASOPHILS % (AUTO) 0 % (0-10); EOSINOPHILS # (AUTO) 0.1 10^3/uL (0.0-0.3); EOSINOPHILS % (AUTO) 2 % (0-10); HEMATOCRIT 31 % (35-52); HEMOGLOBIN 9.8 G/DL (11.5-16.0); LYMPHOCYTES # (AUTO) 0.7 X 10^3 (1.0-4.0); LYMPHOCYTES % (AUTO) 12 % (12-44); MEAN CORPUSCULAR HEMOGLOBIN 27 PG (25-34); MEAN CORPUSCULAR HGB CONC 32 G/DL (32-36); MEAN CORPUSCULAR VOLUME 83 FL (80-99); MEAN PLATELET VOLUME 10.5 FL (7.4-10.4); MONOCYTES # (AUTO) 0.6 X 10^3 (0.0-1.0); MONOCYTES % (AUTO) 10 % (0-12); NEUTROPHILS # (AUTO) 4.6 X 10^3 (1.8-7.8); NEUTROPHILS % (AUTO) 76 % (42-75); PLATELET COUNT 365 10^3/uL (130-400); RED CELL DISTRIBUTION WIDTH 12.6 % (10.0-14.5); WHITE BLOOD COUNT 6.1 10^3/uL (4.3-11.0)
[2019-11-29] MEDS: predniSONE 20 MG TAB PO SCH (06:09)
[2019-11-29] MEDS: PROPRANOLOL 20 MG (INDERAL) TABLET PO SCH ×3 (06:09→17:35)
[2019-11-29] MEDS: LACTATED RINGERS 1,000 ML IV SCH ×2 (06:11→19:45)
[2019-11-29 06:23] LABS: BUN/CREATININE RATIO 30; CALCIUM 8.5 MG/DL (8.5-10.1); CARBON DIOXIDE 23 MMOL/L (21-32); CHLORIDE 107 MMOL/L (98-107); CREATININE SERUM 0.46 MG/DL (0.60-1.30); GFR ESTIMATED > 60; GLUCOSE 85 MG/DL (70-105); MAGNESIUM 1.4 MG/DL (1.6-2.4); PHOSPHORUS 3.4 MG/DL (2.3-4.7); POTASSIUM 3.7 MMOL/L (3.6-5.0); SODIUM 138 MMOL/L (135-145)
[2019-11-29 08:00] VITALS: BP 155/88
[2019-11-29] MEDS: PANTOPRAZOLE 40 MG (PROTONIX) VIAL IV SCH (09:23)
[2019-11-29] MEDS: ENOXAPARIN 30 MG/0.3 ML (LOVENOX) SYR SC SCH (09:23)
[2019-11-29] MEDS: risperiDONE 1 MG (RisperDAL) TAB PO SCH ×2 (09:23→20:56)
[2019-11-29] MEDS: METHIMAZOLE TABLET 5 MG TABLET PO SCH ×2 (09:23→20:56)
--- NOTE | 2019-11-29 11:30 | NUR ---
UNABLE TO TAKE PO MEDS INCLUDING INDERAL, DR. MORALES NOTIFIED AND PT MADE NPO AT THIS TIME. HAVING DIFFICULTY SWALLOWING AND FOOD/LIQUID/MEDS RUNS OUT MOUTH.
[2019-11-29 12:00] VITALS: BP 117/74
--- NOTE | 2019-11-29 12:26 | Progress Note - Hospitalist ---
Subjective HPI/CC On Admission Date Seen by Provider: Nov 29, 2019 Time Seen by Provider: 12:22 Subjective/Events-last exam Pt is sleeping soundly. Stirs to verbal stimuli but does not speak. Appears more comfortable today. Objective Exam Vital Signs Vital Signs Date Time Temp Pulse Resp B/P (MAP) Pulse Ox O2 Delivery O2 Flow Rate FiO2 11/29/19 12:00 35.7 92 16 117/74 (88) 99 Room Air Capillary Refill : Less Than 3 SecondsLess Than 3 Seconds General Appearance: Chronically ill, Cachetic Respiratory: Lungs Clear, No Respiratory Distress Cardiovascular: Regular Rate, Rhythm, No Murmur Gastrointestinal: Normal Bowel Sounds, Soft Results/Procedures Lab Laboratory Tests 11/29/19 05:51 Patient resulted labs reviewed. Assessment/Plan Assessment and Plan Assess & Plan/Chief Complaint Cachexia- chair inspector and leveler consulted, appreciate recs, weight up again today but did not tolerate breakfast well, will consult surgery as she may need PEG placement if this continues Positive for methamphetamine.- Adult protective services notified Hyperthyroid- on methimazole Multiple sclerosis severe- may need hospice/palliative care, morphine for pain History of bipolar Dysphagia- speech consulted, appreciate recs Clinical Quality Measures DVT/VTE Risk/Contraindication: Risk Factor Score Per Nursin RFS Level Per Nursing on Admit: 4+=Very High LLUVIA MORALES MD Nov 29, 2019 12:26
--- NOTE | 2019-11-29 13:26 | Consultation - Surgery ---
History of Present Illness History of Present Illness Patient Consulted On(patricia/time) 11/29/19 13:21 Date Seen by Provider: Nov 29, 2019 Time Seen by Provider: 13:21 History of Present Illness Consult requested by Dr. Johnston for gastrostomy tube. Patient is a 39 year old female with severe multiple sclerosis. Patient unable to communicate with me. There is no family at bedside. Patient is cachectic an d having dysphagia. Dr. Johnston has requested that I see the patient for possible gastrostomy tube placement. Allergies and Home Medications Allergies Coded Allergies: No Known Drug Allergies (Unverified , 04/26/12) Home Medications No Active Prescriptions or Reported Meds Patient Home Medication List Home Medication List Reviewed: Yes Past Hcgfhyy-Avmawu-Rynwkx Hx Patient Social History Alcohol Use: Denies Use Number of Drinks Today: AA Recreational Drug Use: Yes (SMOKES 1/2 PPD) Drug of Choice: MARIJUANA, METH Type Used: Cigarettes 2nd Hand Smoke Exposure: Yes Recent Foreign Travel: No Contact w/Someone Who Travel: No Recent Infectious Disease Expo: No Immunizations Up To Date Tetanus Booster (TDap): Unknown PED Vaccines UTD: Yes Seasonal Allergies Seasonal Allergies: No Surgeries History of Surgeries: Yes (l shoulder) Respiratory History of Respiratory Disorde: Yes (snorts methamphetamines, smokes marijuana) Cardiovascular History of Cardiac Disorders: No Cardiac Disorders: Hypertension Neurological History of Neurological Disord: Yes Neurological Disorders: Multiple Sclerosis Reproductive System Hx Reproductive Disorders: No Genitourinary History of Genitourinary Disor: No Genitourinary Disorders: UTI-Chronic Gastrointestinal History of Gastrointestinal Di: Yes Gastrointestinal Disorders: Pancreatitis Musculoskeletal History of Musculoskeletal Dis: No (WRIST WHEN YOUNGER) Musculoskeletal Disorders: Fractures Endocrine History of Endocrine Disorders: No HEENT History of HEENT Disorders: No Cancer History of Cancer: No Psychosocial History of Psychiatric Problem: Yes Behavioral Health Disorders: Bipolar, Schizophrenia Integumentary History of Skin or Integumenta: Yes (ACNE CAUSED BY MIRENA IUD) Blood Transfusions History of Blood Disorders: No Adverse Reaction to a Blood Tr: No Family Medical History Significant Family History: No Pertinent Family Hx Family Medial History: Cancer (LUNG) 03 FATHER, Onset:Unknown (LUNG) PATERNAL GRANDMOTHER, Onset:Unknown (BREAST) Visual impairment MATERNAL GRANDMOTHER, Onset:Unknown (MACULAR DEGENERATION) Review of Systems-General ROS-Unable to Obtain: unable to obtain due to patient condition Physical Exam-General Problems Physical Exam Vital Signs Vital Signs - First Documented 11/24/19 19:35 Temp 37.2 Pulse 154 Resp 13 B/P (MAP) 134/100 (111) Pulse Ox 97 O2 Delivery Room Air Capillary Refill : Less Than 3 SecondsLess Than 3 Seconds General Appearance: cachetic, other (in slight contracted position) HEENT: PERRL/EOMI, normal ENT inspection Neck: non-tender, supple Respiratory: chest non-tender, no respiratory distress, no accessory muscle use Cardiovascular: regular rate, rhythm Gastrointestinal: non tender, soft, no organomegaly Back: no CVA tenderness Extremities: non-tender Neurologic/Psychiatric: alert; No normal mood/affect, No oriented x 3; other (contracted position) Skin: normal color, warm/dry Lymphatic: no adenopathy Data Review Labs Laboratory Tests 11/29/19 05:51: White Blood Count 6.1, Red Blood Count 3.68L, Hemoglobin 9.8L, Hematocrit 31L, Mean Corpuscular Volume 83, Mean Corpuscular Hemoglobin 27, Mean Corpuscular Hemoglobin Concent 32, Red Cell Distribution Width 12.6, Platelet Count 365, Mean Platelet Volume 10.5H, Neutrophils (%) (Auto) 76H, Lymphocytes (%) (Auto) 12, Monocytes (%) (Auto) 10, Eosinophils (%) (Auto) 2, Basophils (%) (Auto) 0, Neutrophils # (Auto) 4.6, Lymphocytes # (Auto) 0.7L, Monocytes # (Auto) 0.6, Eosinophils # (Auto) 0.1, Basophils # (Auto) 0.0, Sodium Level 138, Potassium Level 3.7, Chloride Level 107, Carbon Dioxide Level 23, Anion Gap 8, Blood Urea Nitrogen 14, Creatinine 0.46L, Estimat Glomerular Filtration Rate > 60, BUN/Creatinine Ratio 30, Glucose Level 85, Calcium Level 8.5, Phosphorus Level 3.4, Magnesium Level 1.4L Microbiology 11/24/19 MRSA Screen - Final, Complete MRSA not isolated 11/24/19 Blood Culture - Preliminary, Resulted No growth Assessment/Plan Assessment/Plan Assessment/Plan Cachexia. Positive meth. Multiple sclerosis severe. Dysphagia. Patient would likely benefit from egd with gastrostomy tube placement possible o pen all other indicated procedures. Will obtain consent, if consent can be obtained will plan on doing Saturday or Saturday. npo after midnight in case we can do tomorrow if not can resume dysphagia1 diet. Clinical Quality Measures DVT/VTE Risk/Contraindication: Risk Factor Score Per Nursin RFS Level Per Nursing on Admit: 4+=Very High ANA M WALLACE DO Nov 29, 2019 13:26
--- NOTE | 2019-11-29 14:30 | NUR ---
MRSA SWABS TO LAB, SURGERY ADD-ON COMPLETED AND [facility] NOTIFIED. DR. MORALES AND DR. WALLACE BOTH AWARE CONSENT NOT ABLE TO BE SIGNED AT THIS TIME NO AVAILABLE FAMILY/GUARDIAN.
[2019-11-29 15:32] VITALS: BP 140/76
[2019-11-29 19:36] VITALS: BP 147/83
[2019-11-29] MEDS: morphine INJ 4 MG/ML 1 ML (VIAL/SYRINGE) IVP PRN (21:03)
[2019-11-30] MEDS: PROPRANOLOL 20 MG (INDERAL) TABLET PO SCH ×4 (00:38→17:31)
[2019-11-30 04:00] VITALS: BP 161/100
[2019-11-30 04:07] LABS: BASOPHILS % (AUTO) 0 % (0-10); EOSINOPHILS # (AUTO) 0.1 10^3/uL (0.0-0.3); EOSINOPHILS % (AUTO) 1 % (0-10); HEMATOCRIT 38 % (35-52); HEMOGLOBIN 12.4 G/DL (11.5-16.0); LYMPHOCYTES # (AUTO) 0.9 X 10^3 (1.0-4.0); LYMPHOCYTES % (AUTO) 8 % (12-44); MEAN CORPUSCULAR HEMOGLOBIN 26 PG (25-34); MEAN CORPUSCULAR HGB CONC 33 G/DL (32-36); MEAN CORPUSCULAR VOLUME 81 FL (80-99); MEAN PLATELET VOLUME 10.5 FL (7.4-10.4); MONOCYTES # (AUTO) 0.9 X 10^3 (0.0-1.0); MONOCYTES % (AUTO) 7 % (0-12); NEUTROPHILS # (AUTO) 10.1 X 10^3 (1.8-7.8); NEUTROPHILS % (AUTO) 84 % (42-75); PLATELET COUNT 410 10^3/uL (130-400); RED CELL DISTRIBUTION WIDTH 12.6 % (10.0-14.5)
[2019-11-30 04:26] LABS: BUN/CREATININE RATIO 30; CALCIUM 7.6 MG/DL (8.5-10.1); CARBON DIOXIDE 22 MMOL/L (21-32); CHLORIDE 104 MMOL/L (98-107); CREATININE SERUM 0.47 MG/DL (0.60-1.30); GFR ESTIMATED > 60; GLUCOSE 71 MG/DL (70-105); MAGNESIUM 1.4 MG/DL (1.6-2.4); PHOSPHORUS 3.6 MG/DL (2.3-4.7); POTASSIUM 4.8 MMOL/L (3.6-5.0); SODIUM 138 MMOL/L (135-145)
[2019-11-30] MEDS: predniSONE 20 MG TAB PO SCH (06:19)
--- NOTE | 2019-11-30 07:39 | Progress Note ---
Subjective Time Seen by a Provider: 07:34 Subjective/Events-last exam Patient only says one word He asked patient if she wanted a PEG tube since she couldn't eat and she stated yes Asked patient if she wanted the lights off in the room and she said yes. Patient understands what I am telling her. Patient has dysphagia Objective Exam Vital Signs Date Time Temp Pulse Resp B/P (MAP) Pulse Ox O2 Delivery O2 Flow Rate FiO2 11/30/19 04:00 36.1 109 18 161/100 (120) 100 Room Air 11/30/19 01:00 111 11/29/19 20:10 Room Air 11/29/19 19:36 36.2 102 16 147/83 (104) 95 Room Air 11/29/19 19:00 95 11/29/19 15:32 36.2 97 16 140/76 (97) 96 Room Air 11/29/19 13:00 88 11/29/19 12:00 35.7 92 16 117/74 (88) 99 Room Air 11/29/19 09:00 Room Air 11/29/19 08:00 35.9 86 16 155/88 (110) 99 Room Air I & O 11/30/19 07:00 Intake Total 1000 ml Output Total 2075 ml Balance -1075 ml Capillary Refill : Less Than 3 SecondsLess Than 3 Seconds General Appearance: No Apparent Distress, Thin HEENT: Normal ENT Inspection Neck: Normal Inspection Respiratory: Lungs Clear, No Accessory Muscle Use, No Respiratory Distress Cardiovascular: Regular Rate, Rhythm, No Murmur Gastrointestinal: non tender, soft Results Lab Laboratory Tests 11/30/19 03:58 Laboratory Tests 11/30/19 03:58: White Blood Count 12.0H, Red Blood Count 4.73, Hemoglobin 12.4#, Hematocrit 38, Mean Corpuscular Volume 81, Mean Corpuscular Hemoglobin 26, Mean Corpuscular Hemoglobin Concent 33, Red Cell Distribution Width 12.6, Platelet Count 410H, Me an Platelet Volume 10.5H, Neutrophils (%) (Auto) 84H, Lymphocytes (%) (Auto) 8L, Monocytes (%) (Auto) 7, Eosinophils (%) (Auto) 1, Basophils (%) (Auto) 0, Neutrophils # (Auto) 10.1H, Lymphocytes # (Auto) 0.9L, Monocytes # (Auto) 0.9, Eosinophils # (Auto) 0.1, Basophils # (Auto) 0.0, Sodium Level 138, Potassium Level 4.8, Chloride Level 104, Carbon Dioxide Level 22, Anion Gap 12, Blood Urea Nitrogen 14, Creatinine 0.47L, Estimat Glomerular Filtration Rate > 60, BUN/Creatinine Ratio 30, Glucose Level 71, Calcium Level 7.6L, Phosphorus Level 3.6, Magnesium Level 1.4L Microbiology 11/24/19 MRSA Screen - Final, Complete MRSA not isolated 11/24/19 Blood Culture - Preliminary, Resulted No growth Assessment/Plan Assessment/Plan Assess & Plan/Chief Complaint Cachexia. Positive mass. Hyperthyroid. Multiple sclerosis history severe. Difficulty in communication. History of bipolar.. Dysphagia. . 11/27/2019. Cachexia. Positive for methamphetamine. Hyperthyroid. Multiple sclerosis severe. History of bipolar. Dysphagia. . 11/30/19. Cachexia. Positive for meth. Hyperthyroid. Severe multiple sclerosis. History of bipolar. Dysphagia Clinical Quality Measures Admission Status Admission Dx Cachectic. Tachycardia. Hypertension. Positive for meth. Anemia. Hyperthyroid. Multiple sclerosis. Bipolar. Difficulty in communicating DVT/VTE Risk/Contraindication: Risk Factor Score Per Nursin RFS Level Per Nursing on Admit: 4+=Very High MARICRUZ VENTURA DO Nov 30, 2019 07:39
[2019-11-30 08:00] VITALS: BP 149/97
[2019-11-30] MEDS: PANTOPRAZOLE 40 MG (PROTONIX) VIAL IV SCH (08:12)
[2019-11-30] MEDS: LACTATED RINGERS 1,000 ML IV SCH ×2 (08:12→22:08)
[2019-11-30] MEDS: ENOXAPARIN 30 MG/0.3 ML (LOVENOX) SYR SC SCH (08:12)
[2019-11-30] MEDS: risperiDONE 1 MG (RisperDAL) TAB PO SCH ×2 (09:11→20:31)
[2019-11-30] MEDS: METHIMAZOLE TABLET 5 MG TABLET PO SCH ×2 (09:12→20:31)
--- NOTE | 2019-11-30 09:44 | Progress Note - Surgery ---
ELBERT ALVARADO [facility] 11/30/19 0943: Subjective Date Seen by a Provider: Nov 30, 2019 Time Seen by a Provider: 08:00 Subjective/Events-last exam Pt is non-verbal at this time. Shakes head no when asked about pain. Unable to do ROS 2/2 difficulty communicating. Per nurse, pt has not been able to eat. Hospitalist has discussed possible PEG tube with pt and pt reportedly agrees with plan. Review of Systems Unable to perform, pt non-verbal Objective Exam Vital Signs Date Time Temp Pulse Resp B/P (MAP) Pulse Ox O2 Delivery O2 Flow Rate FiO2 11/30/19 09:00 100 Room Air 11/30/19 08:00 36.1 113 16 149/97 (114) 100 Room Air 11/30/19 07:00 109 11/30/19 04:00 36.1 109 18 161/100 (120) 100 Room Air 11/30/19 01:00 111 11/29/19 20:10 Room Air 11/29/19 19:36 36.2 102 16 147/83 (104) 95 Room Air 11/29/19 19:00 95 11/29/19 15:32 36.2 97 16 140/76 (97) 96 Room Air 11/29/19 13:00 88 11/29/19 12:00 35.7 92 16 117/74 (88) 99 Room Air I & O 11/30/19 07:00 Intake Total 1000 ml Output Total 2075 ml Balance -1075 ml Capillary Refill : Less Than 3 SecondsLess Than 3 Seconds General Appearance: No Apparent Distress, Cachetic, Thin HEENT: Other (horizantal nystagmus bilaterally ) Neck: Normal Inspection Respiratory: Lungs Clear, No Accessory Muscle Use, No Respiratory Distress Cardiovascular: Regular Rate, Rhythm, No Murmur Gastrointestinal: non tender, soft Extremity: Other (Lower extremities severe contractures) Neurologic/Psychiatric: Alert, Other (non-verbal) Skin: Normal Color, Warm/Dry, Other (skin breakdown right hip laterally. bruises to various parts of extremitites. ) Lymphatic: No Adenopathy Results Lab Laboratory Tests 11/30/19 03:58: White Blood Count 12.0H, Red Blood Count 4.73, Hemoglobin 12.4#, Hematocrit 38, Mean Corpuscular Volume 81, Mean Corpuscular Hemoglobin 26, Mean Corpuscular Hemoglobin Concent 33, Red Cell Distribution Width 12.6, Platelet Count 410H, Mean Platelet Volume 10.5H, Neutrophils (%) (Auto) 84H, Lymphocytes (%) (Auto) 8L, Monocytes (%) (Auto) 7, Eosinophils (%) (Auto) 1, Basophils (%) (Auto) 0, Neutrophils # (Auto) 10.1H, Lymphocytes # (Auto) 0.9L, Monocytes # (Auto) 0.9, Eosinophils # (Auto) 0.1, Basophils # (Auto) 0.0, Sodium Level 138, Potassium Level 4.8, Chloride Level 104, Carbon Dioxide Level 22, Anion Gap 12, Blood Urea Nitrogen 14, Creatinine 0.47L, Estimat Glomerular Filtration Rate > 60, BUN/Creatinine Ratio 30, Glucose Level 71, Calcium Level 7.6L, Phosphorus Level 3.6, Magnesium Level 1.4L Microbiology 11/24/19 MRSA Screen - Final, Complete MRSA not isolated 11/24/19 Blood Culture - Preliminary, Resulted No growth Assessment/Plan Assessment/Plan Assessment/Plan Cachexia. Positive meth. Multiple sclerosis severe. Dysphagia. Patient would likely benefit from egd with gastrostomy tube placement, pt unable to sign consent at this time 2/2 clinical condition, long term care social worker and Dr Eastman have been working to obtain paperwork for guardianship; documents were filed but have not heard back yet. Continue w/ Dysphagia diet until further news regarding guardianship and consent form. Clinical Quality Measures DVT/VTE Risk/Contraindication: Risk Factor Score Per Nursin RFS Level Per Nursing on Admit: 4+=Very High ANA M PALOMO DO 11/30/19 1840: Subjective Subjective/Events-last exam Patient remains non-verbal. Does open eyes. NPO currently. Unable to get consent yet for EGD/PEG. Patient for repeat swallow today and recommend NPO/PEG tube. No family at bedside. Objective Exam General Appearance: No Apparent Distress, Cachetic HEENT: Other (horizantal nystagmus bilaterally ) Neck: Normal Inspection, Non Tender Respiratory: Chest Non Tender, No Accessory Muscle Use, No Respiratory Distress Cardiovascular: Regular Rate, Rhythm Gastrointestinal: non tender, soft Extremity: Other (Lower extremities severe contractures) Neurologic/Psychiatric: Alert, Other (non-verbal) Skin: Normal Color, Warm/Dry Lymphatic: No Adenopathy Assessment/Plan Assessment/Plan Assessment/Plan Cachexia. Positive meth. Multiple sclerosis severe. Dysphagia. Once consent can be obtained will plan egd/peg tube placement. Repeat swallow eval today. EGD/PEG possbily tomorrow Supervisory-Addendum Brief Verification & Attestation Participated in pt care: history, MDM, physical Personally performed: exam, history, MDM, supervision of care Care discussed with: Medical Student Procedures: n/a Results interpretation: Verified all documentation Verification and Attestation of Medical Student E/M Service A medical student performed and documented this service in my presence. I reviewed and verified all information documented by the medical student and made modifications to such information, when appropriate. I personally performed the physical exam and medical decision making. Ana M Palomo, Nov 30, 2019,18:40 ELBERT ALVARADO MED STUD Nov 30, 2019 09:43 ANA M PALOMO DO Nov 30, 2019 18:40
[2019-11-30 10:14] LABS: FREE T4 (FREE THYROXINE) 1.47 NG/DL (0.70-1.48)
--- NOTE | 2019-11-30 11:37 | NUR ---
SO HERE WITH FOOD AND BOTTLE OF COLA. SS IN ROOM AND TALKED WITH SO OTHER ABOUT PATIENT NPO STATUS AND ASPIRATION PRECAUTIONS. THIS RN WAS ASKED TO COME IN AND TALK WITH SO WELL. SO APPEARS DISHEVELED AND INTOXICATED. SO PACING BACK AND FORTH IN ROOM AND BEHAVING BIZZARRE. SO STATES AT HOME HE FED HER HAMBURGERS, DUTCH FRIES, ETC AND PATIENT WAS ABLE TO SWALLOW FINE EVEN "LYING FLAT LIKE SHE IS NOW". I EDUCATED SO ON THE DOCTOR AND NURSING CONCERNS PATIENT IS NOT CURRENTLY ABLE TO SWALLOW AND HAS HAD DIFFICULTY EVEN SWALLOWING SMALL BITES OF PUDDING OR APPLESAUCE. SO AT THIS TIME SAYS "HERE ILL SHOW YOU" AND PRECEEDED TO ATTEMPT TO GIVE PATIENT A DRINK FROM BOTTLE OF COLA. I STOPPED SO AT THIS TIME AND AGAIN EDUCATED HIM ON PATIENT NPO STATUS AND SWALLOWING PRECAUTIONS. SO BECAME UPSET AND STATES HE IS GOING TO GO SEE DR VENTURA AT OFFICE AND GET PAPERWORK TO PROVE DPOA AND DOES NOT WANT HER TO HAVE A FEEDING TUBE.
[2019-11-30 12:00] VITALS: BP 157/64
--- NOTE | 2019-11-30 12:29 | NUR ---
SO BACK AND IN PATIENT ROOM. SO STATES HE WENT TO DR VENTURA'S OFFICE AND THEY DID NOT HAVE DPOA PAPERWORK ON FILE. SO STATES HE HAD PAPERWORK DRAWN UP AT [facility]. I TOLD SO I WOULD CONTACT THE SW AND SEE IF THEY COULD OBTAIN A COPY FROM [facility]. SO STATES ITS LUNCH TIME AND HES GOING TO FEED PATIENT. I EDUCATED SO ON NPO STATUS AND I COULD NOT ALLOW HIM TO FEED PATIENT. SO STATES HE TOLD DR VENTURA HE WAS GOING TO FEED PATIENT. I INFORMED SO I WOULD HAVE TO CONTACT DR VENTURA MYSELF AND ASK HIM IF HE WANTED TO CHANGE PATIENTS DIET ORDER. SO STATES "SHES THIRSTY AND AT HOME ID GIVE HER A DRINK AND THATS WHAT IM GOING TO DO NOW", SO THEN TOOK EMPTY WATER PITCHER FROM SINK AND PROCEEDED TO FILL IT WITH WATER. THIS RN INFORMED SO THAT HE COULD NOT GIVE HER A DRINK AND IF HE TRIED I WOULD HAVE TO CONTACT SECURITY TO HAVE HIM REMOVED FROM ROOM. SO LEFT FLOOR AT THIS TIME.
--- NOTE | 2019-11-30 13:11 | Speech Therapy Progress Note ---
Therapy Progress Note ST follow up with patient this date indicates she has been made NPO due to pocketing and unsafe oral intake over the weekend. Significant other has been present and been feeding the patient without following safety guidelines. Patient is currently being considered for a PEG placement. Patient has stated she is agreeable to a PEG placement for nutrition. ST will continue to monitor patient status. LAUREN RAMIREZ Nov 30, 2019 13:11
--- NOTE | 2019-11-30 13:46 | NUR ---
SO AT PATIENT BEDSIDE. ASKING FOR UPDATE ON OBTAINING DPOA PAPERWORK. THIS RN INFORMED SO THAT I HAD CONTACTED [employer] TO LOOK INTO OBTAINING COPY OF RECORDS, NO NEWS YET. ALSO INFORMED SO THAT I CONTACTED DR VENTURA ON NPO STATUS, DR VENTURA WISHES TO MAINTAIN NPO STATUS AT THIS TIME DUE TO RISK OF ASPIRATION AND RECCOMENDATIONS FROM SPEECH THERAPIST. SO EDUCATED, NEEDS REINFORCEMENT. SO GAVE THIS RN PHONE NUMBER TO CONTACT WHEN WE HEAR BACK FROM [facility] ON PAPERWORK, NUMBER UPDATED IN PATIENT CHART WELL.
--- NOTE | 2019-11-30 15:16 | NUR ---
CM/SS: Visit with significant other as to plan for discharge Plan: Pt has been accepted to [facility] for placement, however as it is likely pt will have a NG tube placed due to difficulty with swallowing and eating. Summary: Significant other is present and seems frustrated with pt being unable to eat. He is attempting to give pt some pop, coca cola to drink. He is advised not to do that based on the NPO status. He is told of the termite inspector care facility [facility] being unable to take pt and we have referred to Nelly, and they suggested [facility] and they were able to take her. He does not want pt to be placed in [facility]. This worker asked what there relationship is at this time. He reports that they have been together for 17 years. He reports he has DPOA for Healthcare paperwork. He is advised to obtain the paperwork and provide it to us. He reports he will get it and return in to the hospital. Significant other also reports that he is going to the doctors office and talk with them as to the pt not eating and about hospice. Call to Dr. Taylor's office. Let them know that significant other is coming there to talk with them. Gave them the above information. Also shared that he wants hospice and wants her to go home. Also let them know about the guardianship paperwork and that [facility] is able to take pt when medically stable. They thank this worker for the call. Call to Ubaldo at [employer] letting him know the current update with pt. Call to [facility] - Rosa Elena Casas is out today. Left message with Sukhi Isbell from [facility] returns call indicating that he is familiar with the case and that they are hopeful that they will be able to file a temporary guardianship as the person that is in charge of the program Annie Traore is out until Dec 07. He will be staffing case with Rosa Elena later today This worker talks with ELMIRA Johnson and request clarification on the swallow study. She will put in a consult as had mentioned it earlier so that we can clarify what are the next steps. Call from [place] [employer] He has received info from [facility] about the temporary guardianship. Officer Patsy, , he has worked with family for at least 10 years and has been to the home numerous times, and feels as if pt needs to be placed at a facility. He has been working with Rosa Elena Casas at [facility]. He will be working 9am-9pm today and tomorrow if we would have questions. He can not verify if pt and significant other are . Also Chief March working 7am-3pm is working tomorrow as wel.
[2019-11-30 15:58] VITALS: BP 151/91
--- NOTE | 2019-11-30 16:10 | NUR ---
Speech therapy here to complete beside swallow study at this time.
--- NOTE | 2019-11-30 16:15 | NUR ---
Pastoral Care Visit, pt asleep
--- NOTE | 2019-11-30 16:18 | ST Dysphagia Evaluation ---
Speech Evaluation-General Medical Diagnosis Falls/Decreased Level of Conscience Onset Date: Nov 24, 2019 Therapy Diagnosis Therapy Diagnosis: Oropharyngeal Dysphagia Precautions Precautions: Aspiration Referral Referring Physician: Dr. Larios Reason for Referral: Evaluation/Treatment Medical History Reviewed History: Yes Social History Current Living Status: Significant Other Speech PLF/Current-Dysphagia Prior Level of Function Patients SO reported that her diet consisted of regular food items. Subjective Patient was alert for evaluation tasks, however required maximum verbal and phy sical cues to achieve optimal positioning. Patients SO was in the room during the evaluation and periodically interjected comments to both the patient and ST on how to feed the patient and perform. Patients only responses were "yes" or mumbles. Cognitive Status Patient Orientation: Confused, Non-Verbal/Aphasic, Mumbles, Listless Oral Motor Skills Dentition: Natural, Tumbled, Stained Current Food Consistancy: Regular Ability to Follow Directions: Poor Oral Expression Ability: Severe Impairment Dysphagia Evaluation Consistencies Presented: Thin Liquid, [place] Thick Liquid, Honey Thick Liquid, Pureed Oral Phase: Reduced Oral Transit Pharyngeal Phase: Decreased A/P [place] Transit, Reduced Laryngeal Elevation, Delayed Swallow Dietary Recommendations: NPO Liquid Recommendations: NPO It is recommended that patient receive adequate nutrition/hydration through PEG tube placement. Dysphagia Evaluation Summary Patient was admitted to the acute floor s/p falls and decreased level of conscience. Patient was presented thin, nectar, and honey thickened liquids via 1/4 tsp spoon. Patient demonstrated a severely delayed swallow initiation for all thickened liquids. Patient was then presented pureed consistency via 1/2 tsp spoon and also delayed severe delay in swallow initiation and multiple swallows. Decreased laryngeal elevation was noted for all consistencies during the evaluation. Due to pocketing and diet downgrades throughout her hospital admission, Dr. Larios requested a repeat swallow evaluation to be completed. ST completed this evaluation and recommend continued NPO status and referral for PEG tube placement be initiated due to the results of BDE and to provide an alternate means of hydration and nutrition. Barriers to Learning Current medical status. Speech-Plan Patient/Family Goals Patient/Family Goals: Patient is being considered for PEG tube placement at local SNF. Treatment Plan Speech Therapy Treatment Plan: Discontinue ST Treatment Duration: Nov 30, 2019 Frequency: 1 time per week Estimated Hrs Per Day: .25 hour per day Rehab Potential: Poor Barriers to Learning: Current medical status Pt/Family Agrees to Plan: Yes Safety Risks/Education Teaching Recipient: Patient Teaching Methods: Demonstration Response to Teaching: Reinforcement Needed Education Topics Provided: Patient provided education on alternative means of nutrition/hydration Time Speech Therapy Time In: 16:00 Speech Therapy Time Out: 16:15 Total Billed Time: 15 Billed Treatment Time KatharineTIRSO BETHANIA ST Nov 30, 2019 16:18
[2019-11-30] MEDS: morphine INJ 4 MG/ML 1 ML (VIAL/SYRINGE) IVP PRN (17:28)
--- NOTE | 2019-11-30 17:59 | NUR ---
1615: SPOKE WITH SO ABOUT RESULTS OF BEDSIDE SWALLOW STUDY. EDUCATED SO ON RISKS OF ASPIRATION ETC. AT THIS TIME SO BECAME VERY AGITATED AND STATES IF WE WON'T FEED PATIENT HE IS GOING TO TAKE HER HOME. WHILE TALKING TO SO SOPHIA JUAREZ ALSO CAME TO VISIT WITH PATIENT AND SO. DIRECTOR DIGITAL STRATEGY REITERATED TO SO THE RECOMMENDATIONS OF HEALTHCARE TEAM AT THIS TIME. SO STILL DEMANDING TO TAKE PATIENT HOME. SO LEFT ROOM AT THIS TIME AND EXITING FLOOR ON ELEVATOR. 1625: SO BACK ON FLOOR AND TOOK FACILITY WHEELCHAIR INTO PATIENT ROOM. SO TRYING TO MOVE PATIENT TO WHEELCHAIR WITHOUT ASSISTANCE. THIS RN AND 2ND RN (AKI) AT PATIENT BEDSIDE ATTEMPTING TO TALK WITH SO AND EDUCATE HIM ON DR BELTRE FOR PATIENT TO REMAIN IN HOSPITAL. POLICE CALLED FOR ASSISTANCE. 1630: ADDITIONAL STAFF CALLED TO PATIENT ROOM TO HELP ENSURE PATIENT SAFETY WHILE AWAITING POLICE ASSISTANCE. 1640: SO ESCORTED OFF FLOOR BY POLICE. 1645:THIS RN ADVISED BY HOSPITAL MANAGEMENT THAT IF SO WERE TO RETURN CALL THE POLICE IMMEDIATELY. TELESITTER SERVICES ALSO NOTIFIED AND ASKED TO CALL RN ON DUTY IF ANYONE NOT WEARING SCRUBS/APPROPRIATE HOSPITAL EMPLOYEE ATTIRE COMES INTO PATIENT ROOM OR ATTEMPTS TO TAKE PATIENT FROM BED. 1710: DCF WORKER HERE TO SEE PATIENT. UPDATED WORKER ON EVERYTHING THAT HAD OCCURRED WITH SO. 1728: PATIENT DISPLAYING SIGNS AND SYMPTOMS OF PAIN, RESTLESSNESS AND CRYING/MOANING. PATIENT GIVEN 2MG MORPHINE FOR PAIN. 1810: PATIENT IS NOW RESTING QUIETLY IN BED.
--- NOTE | 2019-11-30 19:35 | NUR ---
ICU CALLED ABOUT PT HR IN THE 140s and 150s. DR VENTURA NOTIFIED AND INFORMED ME TO CALL CARDIOLOGY 1944 DR HERMOSILLO NOTIFIED ABOUT PT CONDITION. NEW ORDERS RECEIVED. SEE ORDERS HX. WILL CONTINUO TO MONITOR
[2019-11-30] MEDS: meTOprolol 5 MG/5 ML (LOPRESSOR) VIAL IV SCH (20:12)
[2019-11-30 20:32] VITALS: BP 139/88
[2019-11-30] MEDS: LORazepam INJ 2 MG/ML (ATIVAN) VIAL IVP PRN (21:13)
[2019-11-30] MEDS: HALOPERIDOL 5 MG/ML (HALDOL) AMP IM PRN (21:26)
--- NOTE | 2019-11-30 22:15 | NUR ---
2114 PT AGITATED AND ATTEMPTING TO PULL AT LINES AND IV AT THIS TIME. O2 STAT IN THE 85%-86%. PT MOANING AND CRYING AND GETTING MORE RESTLESS. PT SEEN VERY UPSET. PT PUT ON OXYMASK AT 6L O2 PER RT. O2 90-91%. PRN ATIVAN GIVEN. 2119 PT STILL VERY RESTLESS AND FITTING THE OXYMASK. DR VENTURA UPDATED ABOUT SITUATION. ORDERED TO FIVE PRN HALDOL 3MG. HALDOL IM GIVEN AT THIS TIME. 2149 PT STILL ATTEMPTING TO TAKE OFF THE OXYMASK. PULLING HER GOWN AND IV. WILL CONTINUO TO MONITOR
[2019-12-01] VITALS (7 sets, daily range): BP systolic 121–139; BP diastolic 76–96
--- NOTE | 2019-12-01 00:15 | NUR ---
PT RESTING COMFORTABLE. PT ON 2L O2 PER OXYMASK. STAT 94-95%. WILL CONTINUO TO MONITOR
[2019-12-01] MEDS: meTOprolol 5 MG/5 ML (LOPRESSOR) VIAL IV SCH ×2 (01:19→06:46)
[2019-12-01 04:47] LABS: BASOPHILS % (AUTO) 0 % (0-10); EOSINOPHILS % (AUTO) 0 % (0-10); HEMATOCRIT 39 % (35-52); HEMOGLOBIN 12.5 G/DL (11.5-16.0); LYMPHOCYTES # (AUTO) 0.7 X 10^3 (1.0-4.0); LYMPHOCYTES % (AUTO) 5 % (12-44); MEAN CORPUSCULAR HEMOGLOBIN 26 PG (25-34); MEAN CORPUSCULAR HGB CONC 32 G/DL (32-36); MEAN CORPUSCULAR VOLUME 81 FL (80-99); MEAN PLATELET VOLUME 10.7 FL (7.4-10.4); MONOCYTES # (AUTO) 0.9 X 10^3 (0.0-1.0); MONOCYTES % (AUTO) 6 % (0-12); NEUTROPHILS # (AUTO) 14.4 X 10^3 (1.8-7.8); NEUTROPHILS % (AUTO) 90 % (42-75); PLATELET COUNT 494 10^3/uL (130-400)
[2019-12-01 05:02] LABS: BUN/CREATININE RATIO 22; CALCIUM 8.8 MG/DL (8.5-10.1); CARBON DIOXIDE 22 MMOL/L (21-32); CHLORIDE 104 MMOL/L (98-107); CREATININE SERUM 0.55 MG/DL (0.60-1.30); GFR ESTIMATED > 60; GLUCOSE 85 MG/DL (70-105); MAGNESIUM 1.3 MG/DL (1.6-2.4); PHOSPHORUS 3.3 MG/DL (2.3-4.7); SODIUM 140 MMOL/L (135-145)
[2019-12-01 05:54] LABS: LYMPHOCYTES % (MANUAL) 4 %; MONOCYTES % (MANUAL) 6 %; NEUTROPHILS % (MANUAL) 90 %
[2019-12-01] MEDS: predniSONE 20 MG TAB PO SCH (06:47)
--- NOTE | 2019-12-01 07:41 | Progress Note ---
Subjective Time Seen by a Provider: 07:37 Subjective/Events-last exam Patient on oxygen resting comfortably. Patient sinus tachycardia at 120. Spoke to his social services coordinator to get a guardian. This will be done sometime this week. Patient nothing by mouth. Objective Exam Vital Signs Date Time Temp Pulse Resp B/P (MAP) Pulse Ox O2 Delivery O2 Flow Rate FiO2 12/01/19 04:00 36.8 142 18 139/96 (110) 93 OxyMask 2.00 12/01/19 01:00 114 12/01/19 00:00 36.4 140 20 129/92 (104) 94 OxyMask 2.00 11/30/19 21:00 Room Air 11/30/19 20:32 37.8 154 20 139/88 (105) 92 Room Air 11/30/19 19:00 146 11/30/19 15:58 36.6 138 20 151/91 (111) 96 Room Air 11/30/19 12:51 130 11/30/19 12:00 37.0 130 20 157/64 (95) 98 Room Air 11/30/19 09:00 100 Room Air 11/30/19 08:00 36.1 113 16 149/97 (114) 100 Room Air I & O 12/01/19 07:00 Intake Total 1000 ml Output Total 1425 ml Balance -425 ml Capillary Refill : Less Than 3 SecondsLess Than 3 Seconds General Appearance: No Apparent Distress, Cachetic HEENT: Normal ENT Inspection Neck: Normal Inspection Respiratory: Lungs Clear, No Accessory Muscle Use, No Respiratory Distress, Other (On oxygen) Cardiovascular: Tachycardia Gastrointestinal: non tender, soft Extremity: Other (And fracture of legs) Results Lab Laboratory Tests 11/30/19 08:50: Free Thyroxine 1.47, TSH Bradford Testing 0.00L 12/01/19 04:20: White Blood Count 16.0H, Red Blood Count 4.79, Hemoglobin 12.5, Hematocrit 39, Mean Corpuscular Volume 81, Mean Corpuscular Hemoglobin 26, Mean Corpuscular Hemoglobin Concent 32, Red Cell Distribution Width 13.0, Platelet Count 494H, Mean Platelet Volume 10.7H, Neutrophils (%) (Auto) 90H, Lymphocytes (%) (Auto) 5L, Monocytes (%) (Auto) 6, Eosinophils (%) (Auto) 0, Basophils (%) (Auto) 0, Neutrophils # (Auto) 14.4H, Lymphocytes # (Auto) 0.7L, Monocytes # (Auto) 0.9, Eosinophils # (Auto) 0.0, Basophils # (Auto) 0.0, Neutrophils % (Manual) 90, Lymphocytes % (Manual) 4, Monocytes % (Manual) 6, Sodium Level 140, Potassium Level 4.0, Chloride Level 104, Carbon Dioxide Level 22, Anion Gap 14, Blood Urea Nitrogen 12, Creatinine 0.55L, Estimat Glomerular Filtration Rate > 60, BUN/Creatinine Ratio 22, Glucose Level 85, Calcium Level 8.8, Phosphorus Level 3.3, Magnesium Level 1.3L Microbiology 11/29/19 MRSA Screen - Final, Complete MRSA not isolated 11/24/19 Blood Culture - Final, Complete No growth Assessment/Plan Assessment/Plan Assess & Plan/Chief Complaint Cachexia. Positive mass. Hyperthyroid. Multiple sclerosis history severe. Difficulty in communication. History of bipolar.. Dysphagia. . 11/27/2019. Cachexia. Positive for methamphetamine. Hyperthyroid. Multiple sclerosis severe. History of bipolar. Dysphagia. . 11/30/19. Cachexia. Positive for meth. Hyperthyroid. Severe multiple sclerosis. History of bipolar. Dysphagia. . 12/01/19. Cachexia. Positive for meth. Hypothyroid. Severe multiple sclerosis. History of bipolar. Dysphagia. Problem with significant other Clinical Quality Measures Admission Status Admission Dx Cachectic. Tachycardia. Hypertension. Positive for meth. Anemia. Hyperthyroid. Multiple sclerosis. Bipolar. Difficulty in communicating DVT/VTE Risk/Contraindication: Risk Factor Score Per Nursin RFS Level Per Nursing on Admit: 4+=Very High MARICRUZ VENTURA DO Dec 01, 2019 07:41
--- NOTE | 2019-12-01 07:57 | Progress Note - Surgery ---
[facility]BERT ALVARADO [facility] 12/01/19 0757: Subjective Date Seen by a Provider: Dec 01, 2019 Time Seen by a Provider: 07:23 Subjective/Events-last exam pt lying down in bed. NS canula. Appears comfortable. Non-communicative. Guardianship case is still on-going; health and social care teacher are following. Pt remains tachycardic this AM. Review of Systems Unable to perform, pt non-verbal Objective Exam Vital Signs Date Time Temp Pulse Resp B/P (MAP) Pulse Ox O2 Delivery O2 Flow Rate FiO2 12/01/19 04:00 36.8 142 18 139/96 (110) 93 OxyMask 2.00 12/01/19 01:00 114 12/01/19 00:00 36.4 140 20 129/92 (104) 94 OxyMask 2.00 11/30/19 21:00 Room Air 11/30/19 20:32 37.8 154 20 139/88 (105) 92 Room Air 11/30/19 19:00 146 11/30/19 15:58 36.6 138 20 151/91 (111) 96 Room Air 11/30/19 12:51 130 11/30/19 12:00 37.0 130 20 157/64 (95) 98 Room Air 11/30/19 09:00 100 Room Air 11/30/19 08:00 36.1 113 16 149/97 (114) 100 Room Air I & O 12/01/19 07:00 Intake Total 1000 ml Output Total 1425 ml Balance -425 ml Capillary Refill : Less Than 3 SecondsLess Than 3 Seconds General Appearance: No Apparent Distress, Cachetic HEENT: Normal ENT Inspection Neck: Normal Inspection Respiratory: Lungs Clear, No Accessory Muscle Use, No Respiratory Distress, Other (On oxygen) Cardiovascular: Tachycardia Gastrointestinal: non tender, soft Extremity: Other (And fracture of legs) Neurologic/Psychiatric: Alert, Other (non-verbal) Skin: Normal Color, Warm/Dry Lymphatic: No Adenopathy Results Lab Laboratory Tests 11/30/19 08:50: Free Thyroxine 1.47, TSH Salley Testing 0.00L 12/01/19 04:20: White Blood Count 16.0H, Red Blood Count 4.79, Hemoglobin 12.5, Hematocrit 39, Mean Corpuscular Volume 81, Mean Corpuscular Hemoglobin 26, Mean Corpuscular Hemoglobin Concent 32, Red Cell Distribution Width 13.0, Platelet Count 494H, Mean Platelet Volume 10.7H, Neutrophils (%) (Auto) 90H, Lymphocytes (%) (Auto) 5L, Monocytes (%) (Auto) 6, Eosinophils (%) (Auto) 0, Basophils (%) (Auto) 0, Neutrophils # (Auto) 14.4H, Lymphocytes # (Auto) 0.7L, Monocytes # (Auto) 0.9, Eosinophils # (Auto) 0.0, Basophils # (Auto) 0.0, Neutrophils % (Manual) 90, Lymphocytes % (Manual) 4, Monocytes % (Manual) 6, Sodium Level 140, Potassium Level 4.0, Chloride Level 104, Carbon Dioxide Level 22, Anion Gap 14, Blood Urea Nitrogen 12, Creatinine 0.55L, Estimat Glomerular Filtration Rate > 60, BUN/Creatinine Ratio 22, Glucose Level 85, Calcium Level 8.8, Phosphorus Level 3.3, Magnesium Level 1.3L Microbiology 11/29/19 MRSA Screen - Final, Complete MRSA not isolated 11/24/19 Blood Culture - Final, Complete No growth Assessment/Plan Final Diagnosis Cachexia. Positive meth. Multiple sclerosis severe. Dysphagia. -Repeated swallow study yesterday, recommend continued NPO status and referral for PEG tube placement -Guardianship case still on-going. Once consent can be obtained will plan egd/peg tube placement. No surgical intervention can be done w/o signed consent forms at this time. Will be signing off pt until guardianship is determined. Will be happy to consult on pt again once This is figured out. Clinical Quality Measures DVT/VTE Risk/Contraindication: Risk Factor Score Per Nursin RFS Level Per Nursing on Admit: 4+=Very High ANA M PALOMO DO 12/01/192037: Subjective Subjective/Events-last exam Patient sitting in bed. Non-verbal. patient had ng tube placed. Guardianship still in question. No consent for gastrostomy tube. Objective Exam General Appearance: No Apparent Distress, Cachetic HEENT: PERRL/EOMI, Normal ENT Inspection, Other (ng tube) Neck: Normal Inspection Respiratory: Chest Non Tender, No Accessory Muscle Use, No Respiratory Distress Cardiovascular: Regular Rate, Rhythm, Tachycardia Gastrointestinal: non tender, soft Neurologic/Psychiatric: Alert, Other (non-verbal) Skin: Normal Color, Warm/Dry Lymphatic: No Adenopathy Assessment/Plan Assessment/Plan Assessment/Plan see below Final Diagnosis Cachexia. Positive meth. Multiple sclerosis severe. Dysphagia. patient with ng tube placed this morning for intake. would benefit from PEG tube. Guardianship issue at this time so can not obtain consent for EGD/PEG. Will sign off, if you need gastrostomy tube please call me. Supervisory-Addendum Brief Verification & Attestation Participated in pt care: history, MDM, physical Personally performed: exam, history, MDM, supervision of care Care discussed with: Medical Student Procedures: n/a Results interpretation: Verified all documentation Verification and Attestation of Medical Student E/M Service A medical student performed and documented this service in my presence. I reviewed and verified all information documented by the medical student and made modifications to such information, when appropriate. I personally performed the physical exam and medical decision making. Ana M Palomo, Dec 01, 2019,20:42 [facility] ALVARADO [facility] Dec 01, 2019 07:57 ANA M PALOMO DO Dec 01, 2019 20:38
[2019-12-01] MEDS: ENOXAPARIN 30 MG/0.3 ML (LOVENOX) SYR SC SCH (08:04)
[2019-12-01] MEDS: PANTOPRAZOLE 40 MG (PROTONIX) VIAL IV SCH (08:04)
[2019-12-01] MEDS: LORazepam INJ 2 MG/ML (ATIVAN) VIAL IVP PRN ×2 (09:01→23:05)
--- NOTE | 2019-12-01 10:04 | Diagnostic Imaging Report ---
HISTORY: NG tube placement. TECHNIQUE: Frontal view of the chest. COMPARISON: 11/27/2019 FINDINGS: Lung volumes are large. No focal consolidation is seen. There is no pleural effusion or pneumothorax. The cardiac silhouette is stable in size. The tip of the NG tube projects over the stomach with the sidehole at the distal esophagus. IMPRESSION: 1. The tip of the NG tube projects over the stomach with the sidehole at the distal esophagus. 2. No acute pulmonary abnormality is seen. Dictated by: Dictated on workstation # [id number]
--- NOTE | 2019-12-01 11:00 | NUR ---
Unable to aspirate gastric contents for pH. Dr. Larios called, X-ray ordered.
--- NOTE | 2019-12-01 11:00 | NUR ---
Dr. Palomo called to verify NG tube placement from X-ray. NG ok'd to use.
--- NOTE | 2019-12-01 11:04 | NUR ---
CHANGED METHIMAZOLE AND PROPRANOLOL TO NG TUBE ROUTE PER DISCUSSION WITH DR VENTURA.
[2019-12-01] MEDS: risperiDONE 1 MG (RisperDAL) TAB PO SCH ×2 (11:44→21:17)
[2019-12-01] MEDS: predniSONE 20 MG TAB NG SCH (11:44)
[2019-12-01] MEDS: METHIMAZOLE TABLET 5 MG TABLET NG SCH ×2 (11:44→21:16)
[2019-12-01] MEDS: PROPRANOLOL 20 MG (INDERAL) TABLET NG SCH ×2 (11:45→17:23)
[2019-12-01] MEDS: LACTATED RINGERS 1,000 ML IV SCH (11:52)
[2019-12-01] MEDS: morphine INJ 4 MG/ML 1 ML (VIAL/SYRINGE) IVP PRN ×2 (11:56→23:01)
--- NOTE | 2019-12-01 13:05 | Cardiology Progress Note ---
Subjective Date Seen by Provider: Dec 01, 2019 Time Seen by Provider: 13:03 Subjective/Events-last exam Patient is laying down in bed, moaning, not following commands Review of Systems General: Other (unable to provide review of systems) Objective-Cardiology Exam Last Set of Vital Signs Vital Signs 12/01/19 11:45 Temp 37.6 Pulse 147 Resp 20 B/P (MAP) 125/81 (96) Pulse Ox 93 O2 Delivery OxyMask O2 Flow Rate 2.00 Capillary Refill : Less Than 3 SecondsLess Than 3 Seconds I&O Intake and Output 12/01/19 00:00 Intake Total 1000 ml Output Total 1450 ml Balance -450 ml Intake Oral 0 ml IV Total 1000 ml Output Urine Total 1450 ml General: Moderate Distress HEENT: Atraumatic Neck: Supple Lungs: Normal Air Movement Heart: Normal S1, Normal S2, Other (tachycardia) Results Lab Laboratory Tests 12/01/19 04:20 A/P-Cardiology Admission Diagnosis Sinus tachycardia Hyperthyroidism Assessment/Plan Sinus tachycardia secondary to thyroid storm, unable to take oral medication, planning to place a feeding tube, started on IV Lopressor yesterday. I will increase the dose as tolerated Thyroid storm, managed by primary care physician Change in mental status, multiple comorbid condition, managed by primary care physician Multiple sclerosis, managed by primary care physician Clinical Quality Measures DVT/VTE Risk/Contraindication: Risk Factor Score Per Nursin RFS Level Per Nursing on Admit: 4+=Very High RODNEY HERMOSILLO MD Dec 01, 2019 1:05 pm
--- NOTE | 2019-12-01 13:38 | NUR ---
Dr. Larios called at this time to consult dietary for tube feeding.
--- NOTE | 2019-12-01 13:49 | NUR ---
"Received dietary consult for TF recommendations. Est. kcal needs: 5904-0704 kcal | 30-35 kcal/kg Est. Pro needs: 47-55 g Pro | 1.2-1.4 g Pro/kg Would recommend the following TF: Jevity 1.5 at goal rate of 35ml/hr. Begin at 10ml/hr and increase by 5ml q8h for tolerance. Monitor for refeeding syndrome, and monitor gastric residuals for tolerance. At goal rate, provides 1260 kcal (32 kcal/kg); 54 g Pro (1.4 g Pro/kg); and 638ml free water. Flush with 50ml H2O q4 for hydration status. With flushes, provides 938ml free water. Will continue to follow and reassess as pt needs and status change. Pauline Swann, MS, RD, LD O ext. [phone] c [phone]"
--- NOTE | 2019-12-01 16:34 | NUR ---
Pt resting with eyes closed. Cable Television Access Coordinator engaged in team collaboration with social work and care management team.
--- NOTE | 2019-12-01 16:41 | NUR ---
CM/SS: Late entry: 11-30-2019 - approx 4:30pm - notified that significant other is here to take pt from hospital AMA Plan: Pt to remain in hospital due to her medical needs and unable to verbalize her desire to leave Summary: This worker talked with significant other, he is wanting to take pt home to get her something to eat. He does not want pt to starve. He is advised that Dr Taylor has not given the OK for pt to leave, as well as there is an open [facility] case related to Adult protective services and they do not advise that pt leave. Significant other is asking for a wheelchair, and wanting to take pt. He attempts to lift pt from the bed to get her moved so that he can put her in wheelchair that he had gotten. He is again advised not to take pt. ELMIRA Quesada notifies Dr Taylor he reports that pt can not leave the hospital and that the police will need to be called. Offiicer Patsy from [place] police [phone] calls and reports he has a history with family and that he had been contacted by Rosa Elena Casas from [facility] on the emergency guardianship. He ask what he can do. He reports having been to the home numerous times and that he had known family for 10 years. He can not verify that he is the . Officer Patsy is notified of the above and that significant other wanting to take pt from hospital. He advises to call Hillary SOLORZANO and they will assist. ELMIRA Quesada notified Hillary SOLORZANO. In the meantime a code 45 is called and staff are present to assist. Significant other still wanting to take pt. [facility] Rosa Elena Casas [phone] notified of the above via message left Hillary SOLORZANO present and determine that we do not have papers naming him DPOA for health. They talk with significant other. He determines he will walk out cooperatively with law enforcement, PD advises that if he returns that they need to call police and if needed he can place pt in protective custody SAMAN Casas is here to see pt, staff notified worker of [facility] being present
--- NOTE | 2019-12-01 18:00 | NUR ---
This RN initiated tube feeding and started the administration at 10ml/hr of Jevity 1.5 and will increase feeding by 5ml q8h for tolerance with a goal rate of 35ml/hr. This RN will monitor for refeeding syndrome, and monitor gastric residuals for tolerance. The NG tube will be flushed with 50ml H2O q4h for hydration status.
[2019-12-01] MEDS: HALOPERIDOL 5 MG/ML (HALDOL) AMP IM PRN (21:24)
[2019-12-02] MEDS: PROPRANOLOL 20 MG (INDERAL) TABLET NG SCH ×5 (00:28→21:36)
[2019-12-02] MEDS: LACTATED RINGERS 1,000 ML IV SCH ×2 (03:16→23:21)
[2019-12-02 04:00] VITALS: BP 140/79
[2019-12-02] MEDS ORDERED: ACETAMINOPHEN 500 MG TAB (TYLENOL) ONE (04:41)
[2019-12-02] MEDS ORDERED: cefTRIAXone 1,000 MG IV (ROCEPHIN) VIAL ONE (04:42)
[2019-12-02] MEDS ORDERED: WATER (STERILE) FOR INJECTION 10 ML ONE (04:42)
[2019-12-02] MEDS: ACETAMINOPHEN 500 MG TAB (TYLENOL) PO PRN ×2 (04:55→23:53)
[2019-12-02] MEDS: morphine INJ 4 MG/ML 1 ML (VIAL/SYRINGE) IVP PRN ×2 (04:57→22:41)
[2019-12-02] MEDS: LORazepam INJ 2 MG/ML (ATIVAN) VIAL IVP PRN (04:58)
[2019-12-02] MEDS: cefTRIAXone FOR IV USE 1,000 MG in WATER (STERILE) FOR INJECTION 10 ML IV SCH (05:00)
[2019-12-02 05:14] LABS: BASOPHILS % (AUTO) 0 % (0-10); EOSINOPHILS % (AUTO) 0 % (0-10); HEMATOCRIT 34 % (35-52); HEMOGLOBIN 10.9 G/DL (11.5-16.0); LYMPHOCYTES # (AUTO) 0.7 X 10^3 (1.0-4.0); LYMPHOCYTES % (AUTO) 3 % (12-44); MEAN CORPUSCULAR HEMOGLOBIN 26 PG (25-34); MEAN CORPUSCULAR HGB CONC 33 G/DL (32-36); MEAN CORPUSCULAR VOLUME 81 FL (80-99); MEAN PLATELET VOLUME 11.2 FL (7.4-10.4); MONOCYTES # (AUTO) 1.5 X 10^3 (0.0-1.0); MONOCYTES % (AUTO) 8 % (0-12); NEUTROPHILS # (AUTO) 17.4 X 10^3 (1.8-7.8); NEUTROPHILS % (AUTO) 89 % (42-75); PLATELET COUNT 432 10^3/uL (130-400); WHITE BLOOD COUNT 19.5 10^3/uL (4.3-11.0)
[2019-12-02 05:47] LABS: BUN/CREATININE RATIO 25; CALCIUM 8.5 MG/DL (8.5-10.1); CARBON DIOXIDE 23 MMOL/L (21-32); CHLORIDE 104 MMOL/L (98-107); CREATININE SERUM 0.48 MG/DL (0.60-1.30); GFR ESTIMATED > 60; GLUCOSE 86 MG/DL (70-105); MAGNESIUM 1.4 MG/DL (1.6-2.4); PHOSPHORUS 2.7 MG/DL (2.3-4.7); POTASSIUM 3.7 MMOL/L (3.6-5.0); SODIUM 137 MMOL/L (135-145)
[2019-12-02] MEDS: predniSONE 20 MG TAB NG SCH (05:55)
--- NOTE | 2019-12-02 07:39 | Progress Note ---
Subjective Time Seen by a Provider: 07:36 Subjective/Events-last exam Patient resting comfortably this morning. Patient had an elevated temperature last night. White blood cell count elevated to 19,500 and a shift to the left. Patient's lung sounds clear area Focused Exam Lactate Level 12/02/19 04:55: Lactic Acid Level 0.74 Lactic Acid Level Laboratory Tests Test 12/02/19 04:55 Lactic Acid Level 0.74 MMOL/L (0.50-2.00) Objective Exam Vital Signs Date Time Temp Pulse Resp B/P (MAP) Pulse Ox O2 Delivery O2 Flow Rate FiO2 12/02/19 05:50 37.4 12/02/19 04:55 39.2 12/02/19 04:00 39.2 104 22 140/79 (99) 92 OxyMask 2.00 12/02/19 01:00 90 12/01/19 23:59 36.8 100 20 121/76 (91) 95 OxyMask 2.00 12/01/19 21:00 OxyMask 2.00 12/01/19 20:18 36.5 96 20 121/78 (92) 97 OxyMask 2.00 12/01/19 19:00 93 12/01/19 16:10 37.0 111 22 128/78 (95) 93 OxyMask 2.00 12/01/19 13:15 37.6 12/01/19 13:00 105 12/01/19 11:55 147 12/01/19 11:45 37.6 147 20 125/81 (96) 93 OxyMask 2.00 12/01/19 10:19 141 12/01/19 09:34 143 12/01/19 09:11 150 12/01/19 09:00 OxyMask 2.00 12/01/19 07:55 37.8 129 22 130/80 (97) 92 OxyMask 2.00 I & O 12/02/19 07:00 Intake Total 648 ml Output Total 925 ml Balance -277 ml Capillary Refill : Less Than 3 SecondsLess Than 3 Seconds General Appearance: No Apparent Distress, Cachetic HEENT: Normal ENT Inspection Neck: Normal Inspection Respiratory: Lungs Clear, No Accessory Muscle Use, No Respiratory Distress Cardiovascular: Tachycardia, Other (Heart rate decreased) Gastrointestinal: non tender, soft Results Lab Laboratory Tests 12/02/19 04:20 Laboratory Tests 12/02/19 04:20: White Blood Count 19.5H, Red Blood Count 4.13L, Hemoglobin 10.9L, Hematocrit 34L , Mean Corpuscular Volume 81, Mean Corpuscular Hemoglobin 26, Mean Corpuscular Hemoglobin Concent 33, Red Cell Distribution Width 13.0, Platelet Count 432H, Mean Platelet Volume 11.2H, Neutrophils (%) (Auto) 89H, Lymphocytes (%) (Auto) 3L, Monocytes (%) (Auto) 8, Eosinophils (%) (Auto) 0, Basophils (%) (Auto) 0, Neutrophils # (Auto) 17.4H, Lymphocytes # (Auto) 0.7L, Monocytes # (Auto) 1.5H, Eosinophils # (Auto) 0.0, Basophils # (Auto) 0.0, Sodium Level 137, Potassium Level 3.7, Chloride Level 104, Carbon Dioxide Level 23, Anion Gap 10, Blood Urea Nitrogen 12, Creatinine 0.48L, Estimat Glomerular Filtration Rate > 60, BUN/Creatinine Ratio 25, Glucose Level 86, Calcium Level 8.5, Phosphorus Level 2.7, Magnesium Level 1.4L 12/02/19 04:55: Lactic Acid Level 0.74 Microbiology 11/29/19 MRSA Screen - Final, Complete MRSA not isolated 11/24/19 Blood Culture - Final, Complete No growth Assessment/Plan Assessment/Plan Assess & Plan/Chief Complaint Cachexia. Positive mass. Hyperthyroid. Multiple sclerosis history severe. Difficulty in communication. History of bipolar.. Dysphagia. . 11/27/2019. Cachexia. Positive for methamphetamine. Hyperthyroid. Multiple sclerosis severe. History of bipolar. Dysphagia. . 11/30/19. Cachexia. Positive for meth. Hyperthyroid. Severe multiple sclerosis. History of bipolar. Dysphagia. . 12/01/19. Cachexia. Positive for meth. Hypothyroid. Severe multiple sclerosis. History of bipolar. Dysphagia. Problem with significant other. . 12/02/2019. Cachexia. Positive for meth. Hyperthyroid. Dysphagia. Bipolar. Multiple sclerosis severe Clinical Quality Measures Admission Status Admission Dx Cachectic. Tachycardia. Hypertension. Positive for meth. Anemia. Hyperthyroid. Multiple sclerosis. Bipolar. Difficulty in communicating DVT/VTE Risk/Contraindication: Risk Factor Score Per Nursin RFS Level Per Nursing on Admit: 4+=Very High MARICRUZ VENTURA DO Dec 02, 2019 07:39
[2019-12-02] MEDS: PANTOPRAZOLE 40 MG (PROTONIX) VIAL IV SCH (08:12)
[2019-12-02] MEDS: MAGNESIUM 1 GM/100 ML IVPB 100 ML IV SCH ×3 (08:12→10:56)
[2019-12-02] MEDS: METHIMAZOLE TABLET 5 MG TABLET NG SCH ×2 (08:12→21:03)
[2019-12-02] MEDS: risperiDONE 1 MG (RisperDAL) TAB PO SCH ×2 (08:12→21:03)
--- NOTE | 2019-12-02 08:41 | Diagnostic Imaging Report ---
INDICATION: Sepsis. COMPARISON: 12/01/2019. FINDINGS: NG tube remains present just extending into the stomach. The lungs are well-aerated. No pneumothorax or pleural effusion. No infiltrate. Heart is not enlarged. IMPRESSION: Normal portable chest. Dictated by: Dictated on workstation # [id number]
[2019-12-02 08:52] VITALS: BP 108/63
--- NOTE | 2019-12-02 08:55 | Cardiology Progress Note ---
Subjective Date Seen by Provider: Dec 02, 2019 Time Seen by Provider: 08:53 Subjective/Events-last exam Patient asleep in bed, appears to be in NAD. Review of Systems General: Other (morning in bed, unable to provide review of systems) Focused Exam Lactate Level 12/02/19 04:55: Lactic Acid Level 0.74 Lactic Acid Level Objective-Cardiology Exam Last Set of Vital Signs Vital Signs 12/02/19 15:33 Temp 36.3 Pulse 97 Resp 18 B/P (MAP) 109/69 (82) Pulse Ox 92 O2 Delivery OxyMask O2 Flow Rate 15.00 Capillary Refill : Less Than 3 SecondsLess Than 3 Seconds I&O Intake and Output 12/02/19 00:00 Intake Total 273 ml Output Total 950 ml Balance -677 ml Intake Oral 220 ml Tube Feeding 53 ml Output Urine Total 950 ml # Voids 3 General: No Acute Distress HEENT: Atraumatic Neck: Supple Lungs: Normal Air Movement Heart: Normal S1, Normal S2, Other (tachycardia) Extremities: No Edema Results Lab Laboratory Tests 12/02/19 04:20 A/P-Cardiology Admission Diagnosis Sinus tachycardia Hyperthyroidism Assessment/Plan Sinus tachycardia secondary to thyroid storm, unable to take oral medication, s/p feeding tube, continue to use IV Lopressor as needed. Thyroid storm, managed by primary care physician Change in mental status, multiple comorbid condition, managed by primary care physician Multiple sclerosis, managed by primary care physician Patient was seen and evaluated with Mimi, examination performed, management plan was discussed, agree with the current scribed note, I made few changes to the note using Italic font Continue to monitor at this time, replace electrolytes Heart rate is better. Continue to monitor Clinical Quality Measures DVT/VTE Risk/Contraindication: Risk Factor Score Per Nursin RFS Level Per Nursing on Admit: 4+=Very High MIMI EDMONDSON Dec 02, 2019 08:55 RODNEY HERMOSILLO MD Dec 02, 2019 16:21
[2019-12-02] MEDS: ENOXAPARIN 30 MG/0.3 ML (LOVENOX) SYR SC SCH (09:39)
--- NOTE | 2019-12-02 12:10 | NUR ---
SPOKE WITH DR. VNETURA REGARDING THIS PATIENT. BLOOD PRESSURE WAS SOFT94/57; TEMP 99; RESPERATIONS 16; PULSE 83; O2 AT 86 ON 3 LITERS AND MASK. RESPIRATORY TURNED O2 UP TO 15L PATIENT STATING 96. WANTS US JUST TO MONITOR HER.
[2019-12-02 12:25] VITALS: BP 94/57
[2019-12-02 12:52] VITALS: BP 101/58
[2019-12-02 13:09] LABS: CLARITY,URINE CLOUDY; COLOR,URINE YELLOW; PH,URINE 7.5 (5-9); PROTEIN,URINE TRACE (NEGATIVE)
[2019-12-02 13:10] LABS: BACTERIA,URINE NEGATIVE /HPF; BILIRUBIN,URINE NEGATIVE (NEGATIVE); GLUCOSE, URINE (UA) NEGATIVE (NEGATIVE); KETONES,URINE NEGATIVE (NEGATIVE); LEUKOCYTE ESTERASE ,URINE 3+ (NEGATIVE); NITRITE,URINE NEGATIVE (NEGATIVE)
[2019-12-02 13:11] LABS: AMORPHOUS SEDIMENT,UR MOD AMOR PHOSPHATE /LPF; TRIPLE PHOSPHATE CRYSTAL,UR FEW /LPF
--- NOTE | 2019-12-02 13:15 | NUR ---
SPOKE WITH DR. VENTURA AND WAS TOLD TO HOLD PROPRANOLOL 20 MG. ALSO ASKED TO CONSULT DR. CREWS. PATIENT'S VITALS ARE MORE STABLE.
--- NOTE | 2019-12-02 13:50 | NUR ---
RD FOLLOW-UP Pt appears to be tolerating TF recommendations. Currently at 20ml/hr, with 50ml flush q4h. Continue progressing toward goal of 35ml/hr, with increasing by 5ml q8h for tolerance. Monitor gastric residuals for tolerance and monitor for refeeding syndrome d/t pt malnourished state. Will continue to follow and reassess as pt needs and status change. Pauline Swann, , RD, LD
[2019-12-02 15:33] VITALS: BP 109/69
[2019-12-02] MEDS: HALOPERIDOL 5 MG/ML (HALDOL) AMP IM PRN (17:14)
--- NOTE | 2019-12-02 19:17 | NUR ---
PATIENT'S JEVITY1.5 WAS INCREASED Q8, ONCE AT 1000 AND AGAIN AT [address] VENTURA'S ORDERS
[2019-12-02 20:11] VITALS: BP 166/90
--- NOTE | 2019-12-02 21:35 | NUR ---
Was notified that pt's blood pressure was 166/90. Administered an unscheduled Propanolol 60mg and monitor. Dr. Larios notified.
[2019-12-03] VITALS: BP 111/69
[2019-12-03] MEDS: PROPRANOLOL 20 MG (INDERAL) TABLET NG SCH ×4 (00:53→19:05)
--- NOTE | 2019-12-03 02:00 | NUR ---
Increased Jevity rate 5ml/hr per order. Now currently running at 30ml/hr with 50 ml flush q4h. Will monitor tolerance.
[2019-12-03] MEDS: HALOPERIDOL 5 MG/ML (HALDOL) AMP IM PRN (02:11)
--- NOTE | 2019-12-03 03:00 | NUR ---
Pt not tolerating increase in Jevity rate. Pt keeps tugging on her oxygen mask trying to reach her nose. Decreased rate back to 25ml/hr and pt is back to sleep. Will continue to monitor.
[2019-12-03] MEDS: LORazepam INJ 2 MG/ML (ATIVAN) VIAL IVP PRN ×2 (03:24→19:56)
[2019-12-03] MEDS ORDERED: cefTRIAXone 1,000 MG IV (ROCEPHIN) VIAL ONE (03:56)
[2019-12-03] MEDS ORDERED: WATER (STERILE) FOR INJECTION 10 ML ONE (03:56)
[2019-12-03 04:00] VITALS: BP 133/68
[2019-12-03] MEDS: cefTRIAXone FOR IV USE 1,000 MG in WATER (STERILE) FOR INJECTION 10 ML IV SCH (04:12)
[2019-12-03 05:42] LABS: BASOPHILS % (AUTO) 0 % (0-10); EOSINOPHILS % (AUTO) 0 % (0-10); HEMATOCRIT 31 % (35-52); HEMOGLOBIN 9.7 G/DL (11.5-16.0); LYMPHOCYTES # (AUTO) 0.9 X 10^3 (1.0-4.0); LYMPHOCYTES % (AUTO) 7 % (12-44); MEAN CORPUSCULAR HEMOGLOBIN 27 PG (25-34); MEAN CORPUSCULAR HGB CONC 31 G/DL (32-36); MEAN CORPUSCULAR VOLUME 85 FL (80-99); MEAN PLATELET VOLUME 11.2 FL (7.4-10.4); MONOCYTES # (AUTO) 0.8 X 10^3 (0.0-1.0); MONOCYTES % (AUTO) 6 % (0-12); NEUTROPHILS % (AUTO) 86 % (42-75); PLATELET COUNT 253 10^3/uL (130-400); RED CELL DISTRIBUTION WIDTH 13.3 % (10.0-14.5); WHITE BLOOD COUNT 12.7 10^3/uL (4.3-11.0)
[2019-12-03 06:06] LABS: BUN/CREATININE RATIO 23; CARBON DIOXIDE 24 MMOL/L (21-32); CHLORIDE 105 MMOL/L (98-107); CREATININE SERUM 0.48 MG/DL (0.60-1.30); GFR ESTIMATED > 60; GLUCOSE 115 MG/DL (70-105); MAGNESIUM 1.6 MG/DL (1.6-2.4); PHOSPHORUS 3.3 MG/DL (2.3-4.7); POTASSIUM 4.5 MMOL/L (3.6-5.0); SODIUM 136 MMOL/L (135-145)
[2019-12-03] MEDS: predniSONE 20 MG TAB NG SCH (06:15)
[2019-12-03 07:57] VITALS: BP 109/70
--- NOTE | 2019-12-03 07:59 | Progress Note ---
Subjective Time Seen by a Provider: 07:57 Subjective/Events-last exam Patient noncommunicative. Patient does open eyes. Patient in position. Patient stable. Waiting for state to tell us what to do Focused Exam Lactate Level 12/02/19 04:55: Lactic Acid Level 0.74 Objective Exam Vital Signs Date Time Temp Pulse Resp B/P (MAP) Pulse Ox O2 Delivery O2 Flow Rate FiO2 12/03/19 07:00 77 12/03/19 04:00 36.6 77 21 133/68 (89) 94 OxyMask 15.00 12/03/19 01:00 100 12/03/19 00:00 38.4 102 20 111/69 (83) 90 OxyMask 15.00 12/02/19 23:53 38.4 12/02/19 21:00 94 OxyMask 15.00 12/02/19 20:11 37.6 131 18 166/90 (115) 90 OxyMask 15.00 12/02/19 19:00 124 12/02/19 16:22 OxyMask 15.00 12/02/19 15:33 36.3 97 18 109/69 (82) 92 OxyMask 15.00 12/02/19 13:00 90 12/02/19 12:52 36.4 92 18 101/58 (72) 96 OxyMask 15.00 12/02/19 12:25 37.6 86 16 94/57 (69) 93 OxyMask 15.00 12/02/19 09:00 92 OxyMask 2.50 12/02/19 08:52 36.9 85 16 108/63 (78) 92 OxyMask 2.50 I & O 12/03/19 07:00 Intake Total 1300 ml Output Total 1175 ml Balance 125 ml Capillary Refill : Less Than 3 SecondsLess Than 3 Seconds General Appearance: No Apparent Distress, Cachetic Respiratory: Lungs Clear, No Accessory Muscle Use, No Respiratory Distress Cardiovascular: Regular Rate, Rhythm Gastrointestinal: soft Results Lab Laboratory Tests 12/03/19 05:10 Laboratory Tests 12/02/19 09:36: Urine Color YELLOW, Urine Clarity CLOUDY, Urine pH 7.5, Urine Specific [place] 1.010L, Urine Protein TRACEH, Urine Glucose (UA) NEGATIVE, Urine Ketones NEGATIVE, Urine Nitrite NEGATIVE, Urine Bilirubin NEGATIVE, Urine Urobilinogen NORMAL, Urine Leukocyte Esterase 3+H, Urine RBC (Auto) 2+H, Urine RBC 10-25H, Urine WBC 2-5, Urine Crystals PRESENTH, Urine Triple Phosphate Crystals FEWH, Urine Amorphous Sediment MOD LIZA PHOSPHATEH, Urine Bacteria NEGATIVE, Urine Casts NONE, Urine Mucus NEGATIVE, Urine Culture Indicated NO 12/03/19 05:10: White Blood Count 12.7H, Red Blood Count 3.64L, Hemoglobin 9.7L, Hematocrit 31L, Mean Corpuscular Volume 85, Mean Corpuscular Hemoglobin 27, Mean Corpuscular Hemoglobin Concent 31L, Red Cell Distribution Width 13.3, Platelet Count 253, Mean Platelet Volume 11.2H, Neutrophils (%) (Auto) 86H, Lymphocytes (%) (Auto) 7L, Monocytes (%) (Auto) 6, Eosinophils (%) (Auto) 0, Basophils (%) (Auto) 0, Neutrophils # (Auto) 11.0H, Lymphocytes # (Auto) 0.9L, Monocytes # (Auto) 0.8, Eosinophils # (Auto) 0.0, Basophils # (Auto) 0.0, Sodium Level 136, Potassium Level 4.5, Chloride Level 105, Carbon Dioxide Level 24, Anion Gap 7, Blood Urea Nitrogen 11, Creatinine 0.48L, Estimat Glomerular Filtration Rate > 60, BUN/Creatinine Ratio 23, Glucose Level 115H, Calcium Level 8.0L, Phosphorus Level 3.3, Magnesium Level 1.6 Microbiology 12/02/19 Blood Culture - Preliminary, Resulted No growth 11/29/19 MRSA Screen - Final, Complete MRSA not isolated Assessment/Plan Assessment/Plan Assess & Plan/Chief Complaint Cachexia. Positive mass. Hyperthyroid. Multiple sclerosis history severe. Difficulty in communication. History of bipolar.. Dysphagia. . 11/27/2019. Cachexia. Positive for methamphetamine. Hyperthyroid. Multiple sclerosis severe. History of bipolar. Dysphagia. . 11/30/19. Cachexia. Positive for meth. Hyperthyroid. Severe multiple sclerosis. History of bipolar. Dysphagia. . 12/01/19. Cachexia. Positive for meth. Hypothyroid. Severe multiple sclerosis. History of bipolar. Dysphagia. Problem with significant other. . 12/02/2019. Cachexia. Positive for meth. Hyperthyroid. Dysphagia. Bipolar. Multiple sclerosis severe. . 12/03/2019. Cachexia. Positive for methamphetamine Hyperthyroid. Dysphagia. Bipolar. Multiple sclerosis severe. position. Clinical Quality Measures Admission Status Admission Dx Cachectic. Tachycardia. Hypertension. Positive for meth. Anemia. Hyperthyroid. Multiple sclerosis. Bipolar. Difficulty in communicating DVT/VTE Risk/Contraindication: Risk Factor Score Per Nursin RFS Level Per Nursing on Admit: 4+=Very High MARICRUZ VENTURA DO Dec 03, 2019 07:59
--- NOTE | 2019-12-03 08:24 | Cardiology Progress Note ---
Subjective Date Seen by Provider: Dec 03, 2019 Time Seen by Provider: 08:20 Subjective/Events-last exam Patient in bed, appears to be resting comfortably, no apparent distress. Focused Exam Lactate Level 12/02/19 04:55: Lactic Acid Level 0.74 Objective-Cardiology Exam Last Set of Vital Signs Vital Signs 12/03/19 07:57 Temp 37.0 Pulse 79 Resp 20 B/P (MAP) 109/70 (83) Pulse Ox 100 O2 Delivery OxyMask O2 Flow Rate 15.00 Capillary Refill : Less Than 3 SecondsLess Than 3 Seconds I&O Intake and Output 12/03/19 00:00 Intake Total 1675 ml Output Total 1375 ml Balance 300 ml Intake Oral 0 ml IV Total 1300 ml Tube Feeding 375 ml Output Urine Total 1375 ml General: No Acute Distress HEENT: Atraumatic Neck: Supple Lungs: Normal Air Movement Heart: Normal S1, Normal S2, Other (tachycardia) Extremities: No Edema Results Lab Laboratory Tests 12/03/19 05:10 A/P-Cardiology Admission Diagnosis Sinus tachycardia Hyperthyroidism Assessment/Plan Sinus tachycardia secondary to thyroid storm, s/p feeding tube,heart rate well controlled on Atenolol. Thyroid storm, managed by primary care physician Change in mental status, multiple comorbid condition, managed by primary care physician Multiple sclerosis, managed by primary care physician Patient was seen and evaluated with Mimi, examination performed, management plan was discussed, agree with the current scribed note, I made few changes to the note using Italic font No change in her condition, receiving NG feeding Clinical Quality Measures DVT/VTE Risk/Contraindication: Risk Factor Score Per Nursin RFS Level Per Nursing on Admit: 4+=Very High MIMI EDMONDSON Dec 03, 2019 08:24 RODNEY HERMOSILLO MD Dec 03, 2019 09:38
[2019-12-03] MEDS: PANTOPRAZOLE 40 MG (PROTONIX) VIAL IV SCH (09:49)
[2019-12-03] MEDS: risperiDONE 1 MG (RisperDAL) TAB PO SCH ×2 (09:50→20:44)
[2019-12-03] MEDS: METHIMAZOLE TABLET 5 MG TABLET NG SCH ×2 (09:50→20:44)
[2019-12-03] MEDS: ENOXAPARIN 30 MG/0.3 ML (LOVENOX) SYR SC SCH (09:50)
[2019-12-03 11:45] VITALS: BP 97/59
--- NOTE | 2019-12-03 13:40 | NUR ---
"RD FOLLOW-UP PMHx: HTN; MS; bipolar; schizophrenia; hyperthyroidism; cachexia; hx of meth use/abuse PT INTERACTION: Pt was asleep during follow-up. Note pt is non-communicative, per chart review. Pt currently receiving nutrition via NG tube at rate of 30ml/hr, with 50ml flushes q4h. Upon visual exam, pt appears malnourished with visible signs of muscle/fat wasting, and a BMI of 11.3. Pt meets criteria for severe chronic malnutrition per ASPEN guidelines. ABNORMAL NUTRITION-RELATED LAB VALUES LOW: cr 0.48; Ca 8.0 HIGH: glu 115 Est. kcal needs: 0195-7250 kcal | 35-40 kcal/kg Est. Pro needs: 45-54 g Pro | 1.4-1.7 g Pro/kg PES STATEMENT: Inadequate oral intake (NI-2.1) related to loss of appetite | inability to self-feed as evidenced by chart review |NPO Status Underweight (NC-3.1) as related to increased energy needs | inadequate energy intake as evidenced by BMI 11.3 | malnutrition | visual exam (muscle wasting in temporal region) | poor PO intake at home Chronic disease related malnutrition (NC-4.1.2) related to physiological causes resulting in diminished intake (MS) as evidenced by wt loss of 14% x2mon | visual exam | poor PO intake INTERVENTION: Note pt is currently NPO. Continue with current TF order of Jevity 1.5 at goal rate of 35ml/hr. Continue increasing by 5ml q8h for tolerance. At this time, refeeding syndrome is very unlikely, but recommend continuing to monitor for tolerance. At goal rate, provides 1260 kcal (39 kcal/kg); 54 g Pro (1.7 g Pro/kg); and 638ml free water. Flush with 50ml H2O q4h for tolerance. With flushes, provides 938ml free water. Will continue to monitor and reassess as pt needs and status change. MONITOR/EVALUATE: TF Tolerance; Plan of Care; Hydration Status; Weight Status; Lab Values Pauline Swann, MS, RD, LD"
[2019-12-03 16:26] VITALS: BP 108/67
--- NOTE | 2019-12-03 17:54 | Diagnostic Imaging Report ---
EXAMINATION: Chest 1 view. HISTORY: Dobbhoff tube placement. COMPARISON: 12/02/2019. FINDINGS: A Dobbhoff is visualized with the tip overlying the GE junction. The lung volumes are normal. Interval development of patchy consolidative opacities are seen in the right lung base. No large pleural effusion or pneumothorax is seen. The cardiomediastinal silhouette is normal in size and contour. No acute osseous abnormality is seen. IMPRESSION: 1. Developing patchy consolidative opacities in the right lung base, which may represent atelectasis or infection. 2. Dobbhoff with the tip overlying the GE junction. Recommend advancing. Dictated by: Dictated on workstation # [id number]
--- NOTE | 2019-12-03 18:46 | Diagnostic Imaging Report ---
INDICATION: NG placement. COMPARISON: Imaging from same date TECHNIQUE: Single radiograph of the chest dated 12/03/2019 at 1822 hours. FINDINGS: Weighted tip enteric catheter is present having slightly advanced since the prior examination with the distal tip now noted within the body of the stomach. The cardiac silhouette is at the upper limits of normal in size. The left lung is clear. Mild right basilar pulmonary opacities are again identified. No large volume pleural effusion. No pneumothorax. Osseous structures are stable. IMPRESSION: Interval advancement of weighted tip enteric catheter with the distal tip extending into the body of the stomach. Persistent right basilar atelectasis and/or infiltrate. Dictated by: Dictated on workstation # [id number]
[2019-12-03] MEDS: LACTATED RINGERS 1,000 ML IV SCH (19:46)
[2019-12-03] MEDS: morphine INJ 4 MG/ML 1 ML (VIAL/SYRINGE) IVP PRN (19:56)
[2019-12-03 20:00] VITALS: BP 118/75
[2019-12-04 00:10] VITALS: BP 123/71
[2019-12-04] MEDS: PROPRANOLOL 20 MG (INDERAL) TABLET NG SCH ×4 (00:39→17:07)
[2019-12-04 03:57] VITALS: BP 118/68
[2019-12-04] MEDS: cefTRIAXone FOR IV USE 1,000 MG in WATER (STERILE) FOR INJECTION 10 ML IV SCH (04:01)
[2019-12-04] MEDS: morphine INJ 4 MG/ML 1 ML (VIAL/SYRINGE) IVP PRN ×2 (05:14→17:15)
[2019-12-04 05:24] LABS: BASOPHILS % (AUTO) 0 % (0-10); EOSINOPHILS % (AUTO) 0 % (0-10); HEMATOCRIT 31 % (35-52); HEMOGLOBIN 9.9 G/DL (11.5-16.0); LYMPHOCYTES # (AUTO) 0.6 X 10^3 (1.0-4.0); LYMPHOCYTES % (AUTO) 6 % (12-44); MEAN CORPUSCULAR HEMOGLOBIN 26 PG (25-34); MEAN CORPUSCULAR HGB CONC 32 G/DL (32-36); MEAN CORPUSCULAR VOLUME 82 FL (80-99); MEAN PLATELET VOLUME 11.1 FL (7.4-10.4); MONOCYTES # (AUTO) 0.8 X 10^3 (0.0-1.0); MONOCYTES % (AUTO) 7 % (0-12); NEUTROPHILS # (AUTO) 9.4 X 10^3 (1.8-7.8); NEUTROPHILS % (AUTO) 87 % (42-75); PLATELET COUNT 400 10^3/uL (130-400); RED CELL DISTRIBUTION WIDTH 13.1 % (10.0-14.5); WHITE BLOOD COUNT 10.8 10^3/uL (4.3-11.0)
[2019-12-04 05:39] LABS: BUN/CREATININE RATIO 21; CALCIUM 8.5 MG/DL (8.5-10.1); CARBON DIOXIDE 25 MMOL/L (21-32); CHLORIDE 106 MMOL/L (98-107); CREATININE SERUM 0.48 MG/DL (0.60-1.30); GFR ESTIMATED > 60; GLUCOSE 118 MG/DL (70-105); MAGNESIUM 1.5 MG/DL (1.6-2.4); POTASSIUM 3.4 MMOL/L (3.6-5.0); SODIUM 139 MMOL/L (135-145)
[2019-12-04] MEDS: predniSONE 20 MG TAB NG SCH (06:07)
--- NOTE | 2019-12-04 06:16 | NUR ---
CM/SS: Late entry 12-02-2019 - Significant other in office of SOPHIA Mendoza of operations, and along with Biochemical Engineer Kellen Pathak with concerns expressed about patients care. This worker is asked to join the meeting. Pt was told by Dr Taylor when he cam to hospital today to ask for social media campaign manager as well as act like is suppose to so that he does not get the police called. Plan: Pt has been accepted to [facility] [place] when deemed appropriate to be discharged there. Summary: Significant other expresses frustration as to pt not being able to eat and that he wants to take pt home to get her something to eat and to also have hospice services. Pt expresses frustration as to not being able to feed pt. Significant other is reminded of pt having problems with swallowing. He does tell the story to Leodan as to his frustration with being watched and the nursing staff instructing him not to feed the pt. This worker is able to remind significant other of DCF involvement and the pursuant of getting a guardian. Pt reports he is the DPOA and that he can make health decisions for pt. A copy of DPOA is obtained from , however page 2 is missing, it is not dated and it is unclear of the pt's signnature. Significant other is requested to get the full document. Significant other went over the placement issue and is aware of the placement at [facility] and continues to talk about pt being placed at [facility]. Significant other reminded that pt was not accepted there. This worker reminded of previous conversations. SOPHIA Hopson of Operations attempts to talk with significant other and is able to get him to agree to let hospital continue to work on the plan and pt can transition to the facility and then to home. Significant other seems to agree to that. This worker along with significant other go upstairs to see pt. Significant other continues to ask pt if she wants to go home and if she wants food, pt seems to get agitated, and is unable to be understood. Significant other is reminded of the tube NG tube feeding and he seems to be ok with that. He still reports that he wants to feed pt. He is able to remain in the room for a short time with this worker present. Significant other is cooperative. He leaves the building. Phone call with Tori Ba to seek some direction. This worker is not able to be environmental studies program director due to the above. Instructions are given as to next steps. Call to [facility] [place] - they can take pt with NG tube. Phone Call to Dr Taylor as to if pt can be discharged to facility with NG tube. Dr request that pt have a PEG tube before discharge for nutrition and medications, or moved to comfort care. Phone Call to Significant other Cy [phone], along with ELMIRA Sanches manager - significant other is on speaker phone asking if he is ok for consent as to having a feeding tube. He does not want her to have a feeding tube and wants he to be able to eat. He retells he all the stories of pt's hospital stay while on the phone. [facility] contacted dept of Neurology as to the page two of document - message left. Attempts made by ELMIRA Sanchesemail marketing manager to obtain documents. Document and fax to to request the page two of document. Significant other returns to hospital, and is back in Mark Anthony's office. This worker waits outside the office this visit, until requested to go up and see of pt can share her wishes. Significant other is at the beside and is asking pt about going home. She is unable to be understood. Significant other is wanting to take pt from hospital AMA again. Document is faxed to them requesting second page - marked urgent Dr. Taylor is contacted, he is in the building and comes to bedside. Significant other is still wanting to take pt from hospital. Pt has NG tube, and is on 15 liters of oxygen. reminds significant other if he removes pts from hospital AMA and she dies he will be charged with murder. He is not happy about this, however does try and get the second page of document and does calm down and leaves the building. Ethics Consult and meeting requested. Email sent to [facility] as they are closed due to the weather about the needing to make contact due to the above events. Returned call from - verifying there is no page two of document, and they send office notes related to DPOA conversations. Sukhi Whittington, Enterprise Manager of [facility] calls back and he is informed of the above and the issues related to the DPOA, and reports paperwork is filed in [place] for guardianship and that the DPOA is not valid based on the date, signature and the no page 2. Ethics committee meeting. Present: Noreen, pastoral care, Mark Anthony GLOST PLACER of operations, YESENIA Foreman Nancy, Nurse Watch Inspector Final Movement, Singh Laboy, pastoral care, Eldon, pastoral care, Byron, Care Management, unsure of title, Mejia, from legal, and this worker. Mejia from legal will make contact with local assistant attorney general to get the process going related to emergency guardianship. He is informed by this worker that the paperwork is in [place] waiting to be approved that was done by DCF. Plan is for pt to remain at the hospital until a guardian can be established, if significant other tries to remove AMA, law enforcement will need to be notified. retail shift manager will be informed by email marketing manager if he should return to hospital.
[2019-12-04 08:00] VITALS: BP 112/64
--- NOTE | 2019-12-04 08:00 | Progress Note ---
Subjective Time Seen by a Provider: 07:58 Subjective/Events-last exam Patient awake this morning. When spoken to walk she does his cry. Patient not communicating. Patient stable Focused Exam Lactate Level 12/02/19 04:55: Lactic Acid Level 0.74 Objective Exam Vital Signs Date Time Temp Pulse Resp B/P (MAP) Pulse Ox O2 Delivery O2 Flow Rate FiO2 12/04/19 03:57 37.1 80 15 118/68 (85) 100 OxyMask 15.00 12/04/19 00:10 36.3 83 21 123/71 (88) 100 OxyMask 15.00 12/03/19 21:21 94 OxyMask 15.00 12/03/19 20:00 36.6 78 14 118/75 (89) 100 OxyMask 15.00 12/03/19 16:26 36.2 77 18 108/67 (81) 89 OxyMask 15.00 12/03/19 11:45 91 20 97/59 (72) 98 OxyMask 15.00 12/03/19 09:00 94 OxyMask 15.00 I & O 12/04/19 07:00 Intake Total 1455 ml Output Total 1600 ml Balance -145 ml Capillary Refill : Less Than 3 SecondsLess Than 3 Seconds General Appearance: No Apparent Distress, Cachetic Neck: Normal Inspection Respiratory: No Accessory Muscle Use, No Respiratory Distress Cardiovascular: Regular Rate, Rhythm, No Murmur Results Lab Laboratory Tests 12/04/19 04:45 Laboratory Tests 12/04/19 04:45: White Blood Count 10.8, Red Blood Count 3.80L, Hemoglobin 9.9L, Hematocrit 31L, Mean Corpuscular Volume 82, Mean Corpuscular Hemoglobin 26, Mean Corpuscular Hemoglobin Concent 32, Red Cell Distribution Width 13.1, Platelet Count 400, Mean Platelet Volume 11.1H, Neutrophils (%) (Auto) 87H, Lymphocytes (%) (Auto) 6L, Monocytes (%) (Auto) 7, Eosinophils (%) (Auto) 0, Basophils (%) (Auto) 0, Neutrophils # (Auto) 9.4H, Lymphocytes # (Auto) 0.6L, Monocytes # (Auto) 0.8, Eosinophils # (Auto) 0.0, Basophils # (Auto) 0.0, Sodium Level 139, Potassium Level 3.4L, Chloride Level 106, Carbon Dioxide Level 25, Anion Gap 8, Blood Urea Nitrogen 10, Creatinine 0.48L, Estimat Glomerular Filtration Rate > 60, BUN/Creatinine Ratio 21, Glucose Level 118H, Calcium Level 8.5, Phosphorus Level 3.0, Magnesium Level 1.5L Microbiology 12/02/19 Blood Culture - Preliminary, Resulted No growth 11/29/19 MRSA Screen - Final, Complete MRSA not isolated Assessment/Plan Assessment/Plan Assess & Plan/Chief Complaint Cachexia. Positive mass. Hyperthyroid. Multiple sclerosis history severe. Difficulty in communication. History of bipolar.. Dysphagia. . 11/27/2019. Cachexia. Positive for methamphetamine. Hyperthyroid. Multiple sclerosis severe. History of bipolar. Dysphagia. . 11/30/19. Cachexia. Positive for meth. Hyperthyroid. Severe multiple sclerosis. History of bipolar. Dysphagia. . 12/01/19. Cachexia. Positive for meth. Hypothyroid. Severe multiple sclerosis. History of bipolar. Dysphagia. Problem with significant other. . 12/02/2019. Cachexia. Positive for meth. Hyperthyroid. Dysphagia. Bipolar. Multiple sclerosis severe. . 12/03/2019. Cachexia. Positive for methamphetamine Hyperthyroid. Dysphagia. Bipolar. Multiple sclerosis severe. position.. . 12/04/2019. Cachexia. Positive for methamphetamine. Hyperthyroid. Dysphagia. Bipolar. Multiple sclerosis severe. Patient in position. Clinical Quality Measures Admission Status Admission Dx Cachectic. Tachycardia. Hypertension. Positive for meth. Anemia. Hyperthyroid. Multiple sclerosis. Bipolar. Difficulty in communicating DVT/VTE Risk/Contraindication: Risk Factor Score Per Nursin RFS Level Per Nursing on Admit: 4+=Very High MARICRUZ VENTURA DO Dec 04, 2019 08:00
--- NOTE | 2019-12-04 09:13 | Cardiology Progress Note ---
Subjective Date Seen by Provider: Dec 04, 2019 Time Seen by Provider: 09:12 Subjective/Events-last exam Patient is in bed, not responding or following commands Review of Systems General: Other (Unable to provide review of systems) Focused Exam Lactate Level 12/02/19 04:55: Lactic Acid Level 0.74 Objective-Cardiology Exam Last Set of Vital Signs Vital Signs 12/04/19 08:00 Temp 37.6 Pulse 84 Resp 18 B/P (MAP) 112/64 (80) Pulse Ox 99 O2 Delivery OxyMask O2 Flow Rate 15.00 Capillary Refill : Less Than 3 SecondsLess Than 3 Seconds I&O Intake and Output 12/04/19 00:00 Intake Total 1000 ml Output Total 1500 ml Balance -500 ml IV Total 1000 ml Output Urine Total 1500 ml General: No Acute Distress HEENT: Atraumatic Neck: Supple Lungs: Normal Air Movement Heart: Normal S1, Normal S2, Other (tachycardia) Extremities: No Edema Results Lab Laboratory Tests 12/04/19 04:45 A/P-Cardiology Admission Diagnosis Sinus tachycardia Hyperthyroidism Assessment/Plan Sinus tachycardia secondary to thyroid storm, have an NG tube and receiving oral beta blockers, continue to monitor Thyroid storm, managed by primary care physician Change in mental status, multiple comorbid condition, managed by primary care physician Multiple sclerosis, managed by primary care physician Methamphetamine use Clinical Quality Measures DVT/VTE Risk/Contraindication: Risk Factor Score Per Nursin RFS Level Per Nursing on Admit: 4+=Very High RODNEY HERMOSILLO MD Dec 04, 2019 09:13
[2019-12-04] MEDS: risperiDONE 1 MG (RisperDAL) TAB PO SCH ×2 (09:16→21:08)
[2019-12-04] MEDS: ENOXAPARIN 30 MG/0.3 ML (LOVENOX) SYR SC SCH (09:17)
[2019-12-04] MEDS: METHIMAZOLE TABLET 5 MG TABLET NG SCH ×2 (09:17→21:08)
[2019-12-04] MEDS: PANTOPRAZOLE 40 MG (PROTONIX) VIAL IV SCH (09:17)
[2019-12-04 09:30] LABS: FREE T4 (FREE THYROXINE) 1.19 NG/DL (0.70-1.48)
--- NOTE | 2019-12-04 10:41 | NUR ---
CM/SS: Phone Call from Financial Aid Counselor office Vincent Mason [phone]. Significant other is there and wanting answers about why he is unable to make health care decisions. [facility] Financial Aid Counselor Mejia Elmore given information for Vincent Mason and he was going to contact him, so that they can talk civil litigation attorney to civil litigation attorney. Significant other is in the Administration office and this worker is asked to come. Upon arrival Mark Anthony Johnson, SOFT TOP INSTALLER of Operations is in the office talking with significant other and reassuring him that the attorneys are talking and when they determine a plan we will all be notified. Mark Anthony has significant others phone number [phone]. Significant other declines coming to the floor to see pt as he did not want to upset her. Significant other said he will remain at the hospital in the lobby, and cafeteria area until he hears something. SAMAN Casas is notified of the following - she has no new information relating to the guardianship. Xiao Pederson, Director of Care Management notified of the above.
[2019-12-04 12:00] VITALS: BP 105/61
--- NOTE | 2019-12-04 13:40 | NUR ---
RD FOLLOW-UP Pt currently receiving enteral nutrition of Jevity 1.5 at goal rate of 35ml/hr with flushes of 50ml q4h. At goal rate, pt is receiving 1260 kcal (39 kcal/kg); 54 g Pro (1.7 g Pro/kg); and 638ml free water. With flushes, provides 938ml free water. Continue to monitor for tolerance. Will continue to follow and reassess as pt needs and status change. Pauline Swann MS, RD, LD
[2019-12-04] MEDS: LACTATED RINGERS 1,000 ML IV SCH (14:04)
[2019-12-04 16:02] VITALS: BP 96/61
--- NOTE | 2019-12-04 16:57 | NUR ---
RANGEL HUGHES IS NOW COURT APPOINTED LEGAL GUARDIAN. EMERGENCY CONTACTS UPDATED.
--- NOTE | 2019-12-04 20:30 | NUR ---
2005- [employer] [place] CALLED THIS RN TO INFORM ME THAT A MAN HAD ENTERED THE PATIENT'S ROOM. I CHECKED TO SEE WHO IT WAS AND IT WAS THE S.O. THIS RN MADE FREQUENT TRIPS BY THE ROOM TO MAKE SURE THE PATIENT WAS DOING FINE AND TO MONITOR THE S.O.'S BEHAVIOR. 2029- THIS RN ENTERED THE ROOM TO GIVE PATIENT HER SCHEDULED MEDICATION. S.O. TALKING TO PATIENT. PATIENT BEGINS TO CRY AND MOAN AT THIS TIME. S.O. SAYS HE WILL LEAVE AND COME BACK IN ABOUT 3 HOURS. WHEN S.O. LEAVES, THIS RN ASKED IF HE DID ANYTHING TO UPSET HER. PATIENT CRIES OUT LOUDLY AND SHAKES HEAD NO. ASSISTED PATIENT INTO A MORE COMFORTABLE POSITION AND COVERED HER UP AT THIS TIME. WILL CONTINUE TO MONITOR.
[2019-12-04 20:41] VITALS: BP 119/74
[2019-12-04] MEDS: LORazepam INJ 2 MG/ML (ATIVAN) VIAL IVP PRN (21:08)
[2019-12-05] VITALS: BP 124/73
[2019-12-05] MEDS: PROPRANOLOL 20 MG (INDERAL) TABLET NG SCH ×5 (00:13→21:47)
[2019-12-05 04:00] VITALS: BP 116/69
--- NOTE | 2019-12-05 05:06 | NUR ---
RADHA FROM LAB ASKED PT IF IT WAS OKAY TO DO MORNING LABS. PT AGREED WITH A HEAD NOD. SOON RADHA WENT TO DRAW BLOOD, PT KEPT WITHDRAWING ARM AND REFUSED TO LET RADHA DRAW BLOOD. PT REFUSED AM LABS AT THIS TIME.
[2019-12-05] MEDS: cefTRIAXone FOR IV USE 1,000 MG in WATER (STERILE) FOR INJECTION 10 ML IV SCH (05:55)
[2019-12-05] MEDS: predniSONE 20 MG TAB NG SCH (05:55)
[2019-12-05 08:29] VITALS: BP 114/72
[2019-12-05] MEDS: risperiDONE 1 MG (RisperDAL) TAB PO SCH ×2 (09:33→21:54)
[2019-12-05] MEDS: METHIMAZOLE TABLET 5 MG TABLET NG SCH ×2 (09:33→21:47)
[2019-12-05] MEDS: PANTOPRAZOLE 40 MG (PROTONIX) VIAL IV SCH (09:33)
[2019-12-05] MEDS: ENOXAPARIN 30 MG/0.3 ML (LOVENOX) SYR SC SCH (09:34)
[2019-12-05 11:31] LABS: BASOPHILS % (AUTO) 0 % (0-10); EOSINOPHILS % (AUTO) 0 % (0-10); HEMATOCRIT 29 % (35-52); HEMOGLOBIN 9.3 G/DL (11.5-16.0); LYMPHOCYTES # (AUTO) 0.5 X 10^3 (1.0-4.0); LYMPHOCYTES % (AUTO) 6 % (12-44); MEAN CORPUSCULAR HEMOGLOBIN 26 PG (25-34); MEAN CORPUSCULAR HGB CONC 32 G/DL (32-36); MEAN CORPUSCULAR VOLUME 82 FL (80-99); MEAN PLATELET VOLUME 10.1 FL (7.4-10.4); MONOCYTES # (AUTO) 0.2 X 10^3 (0.0-1.0); MONOCYTES % (AUTO) 3 % (0-12); NEUTROPHILS # (AUTO) 6.7 X 10^3 (1.8-7.8); NEUTROPHILS % (AUTO) 91 % (42-75); PLATELET COUNT 482 10^3/uL (130-400); RED CELL DISTRIBUTION WIDTH 13.1 % (10.0-14.5); WHITE BLOOD COUNT 7.3 10^3/uL (4.3-11.0)
[2019-12-05 11:42] VITALS: BP 105/63
[2019-12-05 11:50] LABS: ALANINE AMINOTRANSFERASE 32 U/L (0-55); ALBUMIN 2.3 GM/DL (3.2-4.5); ALKALINE PHOSPHATASE 73 U/L (40-136); BILIRUBIN,TOTAL 0.2 MG/DL (0.1-1.0); BUN/CREATININE RATIO 22; CALCIUM 8.2 MG/DL (8.5-10.1); CARBON DIOXIDE 24 MMOL/L (21-32); CHLORIDE 109 MMOL/L (98-107); CREATININE SERUM 0.37 MG/DL (0.60-1.30); GFR ESTIMATED > 60; GLUCOSE 115 MG/DL (70-105); MAGNESIUM 1.6 MG/DL (1.6-2.4); PHOSPHORUS 3.6 MG/DL (2.3-4.7); POTASSIUM 3.9 MMOL/L (3.6-5.0); SODIUM 139 MMOL/L (135-145); TOTAL PROTEIN 4.7 GM/DL (6.4-8.2)
--- NOTE | 2019-12-05 12:43 | Progress Note - Cardiology ---
Cardiology SOAP Progress Note Subjective: She's not able to provide any meaningful history Cries when asked questions Does not report any symptoms Objective: I&O/Vital Signs 12/05/19 12/05/19 12/05/19 12/05/19 01:56 04:00 08:29 11:42 Temp 37.0 36.2 36.6 Pulse 78 72 76 Resp 18 18 20 B/P (MAP) 116/69 (85) 114/72 (86) 105/63 (77) Pulse Ox 100 100 95 99 O2 Delivery OxyMask Nasal Cannula Nasal Cannula Nasal Cannula O2 Flow Rate 15.00 2.00 2.00 1.50 12/05/19 00:00 Intake Total 0 ml Output Total 1100 ml Balance -1100 ml Weight (Pounds): 96 Weight (Ounces): 1.0 Weight (Calculated Kilograms): 43.799892 Constitutional: other (cachectic, slurs words, cries, we're not able to determine orientation) Respiratory: other (fair to good air entry bilat) Cardiovascular: regular rate-rhythm, S1 and S2, systolic murmur (faint RONY at card base), other (NGT in place) Gastrointestional: soft, audible bowel sounds Extremities: No clubbing, No cyanosis, No significant edema Neurologic/Psychiatric: other (noncommunicative) Skin: No rash on exposed areas, No ulcerations on exposed areas Results/Procedures: Labs Laboratory Tests 12/05/19 11:20: White Blood Count 7.3, Red Blood Count 3.56L, Hemoglobin 9.3L, Hematocrit 29L, Mean Corpuscular Volume 82, Mean Corpuscular Hemoglobin 26, Mean Corpuscular Hemoglobin Concent 32, Red Cell Distribution Width 13.1, Platelet Count 482H, Mean Platelet Volume 10.1, Neutrophils (%) (Auto) 91H, Lymphocytes (%) (Auto) 6L , Monocytes (%) (Auto) 3, Eosinophils (%) (Auto) 0, Basophils (%) (Auto) 0, Neutrophils # (Auto) 6.7, Lymphocytes # (Auto) 0.5L, Monocytes # (Auto) 0.2, Eosinophils # (Auto) 0.0, Basophils # (Auto) 0.0, Sodium Level 139, Potassium Level 3.9, Chloride Level 109H, Carbon Dioxide Level 24, Anion Gap 6, Blood Urea Nitrogen 8, Creatinine 0.37L, Estimat Glomerular Filtration Rate > 60, BUN/Creatinine Ratio 22, Glucose Level 115H, Calcium Level 8.2L, Corrected Calcium 9.6, Phosphorus Level 3.6, Magnesium Level 1.6, Total Bilirubin 0.2, Aspartate Amino Transf (AST/SGOT) 21, Alanine Aminotransferase (ALT/SGPT) 32, Alkaline Phosphatase 73, Total Protein 4.7L, Albumin 2.3L Microbiology 12/02/19 Blood Culture - Preliminary, Resulted No growth 11/29/19 MRSA Screen - Final, Complete MRSA not isolated A/P: Assessment: Sinus tachycardia due to hyperthyroidism and cachexia/malnutrition Cachexia of unclear etiology Hyperthyroidism, managed by primary care physician Non-communicative status, etiology unclear, managed by primary care physician Multiple sclerosis, managed by primary care physician H/o methamphetamine use Plan: * She suffers from multiple comorbidities * Cardiac status is clinically stable * Diagnosis and management of non-cardiac conditions (of which she has many) is with the pcp service ALDAIR TOVAR MD FACP FAC CCDS Dec 05, 2019 12:43
--- NOTE | 2019-12-05 12:50 | NUR ---
1200 Propanolol held for BP of 100/64
[2019-12-05] MEDS: LACTATED RINGERS 1,000 ML IV SCH (12:51)
[2019-12-05 12:57] LABS: LYMPHOCYTES % (MANUAL) 2 %; MONOCYTES % (MANUAL) 3 %; NEUTROPHILS % (MANUAL) 95 %; POIKILOCYTOSIS SLIGHT; POLYCHROMASIA SLIGHT
--- NOTE | 2019-12-05 14:12 | Progress Note ---
Subjective Subjective Date Seen by Provider: Dec 05, 2019 Time Seen by Provider: 12:30 Staff notes that telemonitor called and said the screen went blank and just prior it looked like significant other placed a pillow over patient's face. He is not in the room when I visited with patient. Pt was able to move hands on command as well as move eyes when told to follow my finger. Review of Systems ROS Unable to Obtain: unable to obtain due to patient condition General: Other (Unable to provide review of systems) Objective Exam Vital Signs Vital Signs Date Time Temp Pulse Resp B/P (MAP) Pulse Ox O2 Delivery O2 Flow Rate FiO2 12/05/19 11:42 36.6 76 20 105/63 (77) 99 Nasal Cannula 1.50 12/05/19 09:00 99 Nasal Cannula 1.50 12/05/19 08:29 36.2 72 18 114/72 (86) 95 Nasal Cannula 2.00 12/05/19 04:00 37.0 78 18 116/69 (85) 100 Nasal Cannula 2.00 12/05/19 01:56 100 OxyMask 15.00 12/05/19 00:00 36.8 77 16 124/73 (90) 100 OxyMask 12.00 12/04/19 21:00 OxyMask 12.00 12/04/19 20:41 37.4 77 18 119/74 (89) 100 OxyMask 12.00 12/04/19 16:02 37.0 67 16 96/61 (73) 100 OxyMask 12.00 I & O 12/05/19 07:00 Intake Total 0 ml Output Total 1700 ml Balance -1700 ml General Appearance: No Apparent Distress, Cachetic Eyes: Bilateral Eye Normal Inspection HEENT: Normal ENT Inspection Neck: Normal Inspection Respiratory: No Accessory Muscle Use, No Respiratory Distress Cardiovascular: Regular Rate, Rhythm, No Murmur Gastrointestinal: Normal Bowel Sounds, Soft Extremity: Other (And fracture of legs) Neurologic/Psychiatric: Alert, Other (non-verbal) Skin: Normal Color, Warm/Dry Lymphatic: No Adenopathy Results Lab Laboratory Tests 12/05/19 11:20: White Blood Count 7.3, Red Blood Count 3.56L, Hemoglobin 9.3L, Hematocrit 29L, Mean Corpuscular Volume 82, Mean Corpuscular Hemoglobin 26, Mean Corpuscular Hemoglobin Concent 32, Red Cell Distribution Width 13.1, Platelet Count 482H, Mean Platelet Volume 10.1, Neutrophils (%) (Auto) 91H, Lymphocytes (%) (Auto) 6L , Monocytes (%) (Auto) 3, Eosinophils (%) (Auto) 0, Basophils (%) (Auto) 0, Neutrophils # (Auto) 6.7, Lymphocytes # (Auto) 0.5L, Monocytes # (Auto) 0.2, Eo sinophils # (Auto) 0.0, Basophils # (Auto) 0.0, Neutrophils % (Manual) 95, Lymphocytes % (Manual) 2, Monocytes % (Manual) 3, Polychromasia SLIGHT, Poikilocytosis SLIGHT, Sodium Level 139, Potassium Level 3.9, Chloride Level 109H, Carbon Dioxide Level 24, Anion Gap 6, Blood Urea Nitrogen 8, Creatinine 0.37L, Estimat Glomerular Filtration Rate > 60, BUN/Creatinine Ratio 22, Glucose Level 115H, Calcium Level 8.2L, Corrected Calcium 9.6, Phosphorus Level 3.6, Magnesium Level 1.6, Total Bilirubin 0.2, Aspartate Amino Transf (AST/SGOT) 21, Alanine Aminotransferase (ALT/SGPT) 32, Alkaline Phosphatase 73, Total Protein 4.7L, Albumin 2.3L Microbiology 12/02/19 Blood Culture - Preliminary, Resulted No growth 11/29/19 MRSA Screen - Final, Complete MRSA not isolated Assessment/Plan Assessment/Plan Assessment and Plan -continue NG tube feedings- will need residential intervention. -awaiting court proceedings for guardianship. -police to be called if significant other shows up and does anything of concern. -monitor status. Problems: (1) Cachexia (2) Hyperthyroidism (3) Anemia (4) Methamphetamine abuse Assessment & Plan: suspected from significant other giving it to her. (5) Multiple sclerosis Clinical Quality Measures DVT/VTE Risk/Contraindication: Risk Factor Score Per Nursin RFS Level Per Nursing on Admit: 4+=Very High ADA CARO MD Dec 05, 2019 14:12
--- NOTE | 2019-12-05 14:47 | NUR ---
SO IN ROOM. THIS RN MONITORED SO ACTIVITY FREQUENTLY DURING VISIT. SO ASKED THIS RN IF "WE WERE STILL REFUSING TO LET HIM TAKE HER HOME". THIS RN INFORMED SO THAT HE COULD NOT REMOVE PATIENT FROM HOSPITAL, SO STATES "GUESS WE'LL SEE ABOUT THAT SATURDAY". WILL CONTINUE TO MONITOR.
--- NOTE | 2019-12-05 15:27 | NUR ---
SO ASKING AGAIN ABOUT TAKING PATIENT HOME, ADAMANT THAT HE IS DPOA. THIS RN EDUCATED SO THAT PATIENT NOW HAD A COURT APPOINTED GUARDIAN AND HE CANNOT TAKE PATIENT. WILL CONTINUE TO MONITOR
[2019-12-05 16:40] VITALS: BP 115/74
[2019-12-05 20:00] VITALS: BP 122/74
[2019-12-05] MEDS: LORazepam INJ 2 MG/ML (ATIVAN) VIAL IVP PRN (21:48)
[2019-12-05] MEDS: morphine INJ 4 MG/ML 1 ML (VIAL/SYRINGE) IVP PRN (21:48)
[2019-12-06] VITALS: BP 101/65
[2019-12-06] MEDS: cefTRIAXone FOR IV USE 1,000 MG in WATER (STERILE) FOR INJECTION 10 ML IV SCH (03:34)
[2019-12-06] MEDS: LACTATED RINGERS 1,000 ML IV SCH (03:34)
[2019-12-06 04:00] VITALS: BP 94/57
[2019-12-06] MEDS: morphine INJ 4 MG/ML 1 ML (VIAL/SYRINGE) IVP PRN ×2 (04:59→18:40)
[2019-12-06] MEDS: predniSONE 20 MG TAB NG SCH (04:59)
[2019-12-06] MEDS: PROPRANOLOL 20 MG (INDERAL) TABLET NG SCH ×4 (04:59→20:34)
[2019-12-06] MEDS: LORazepam INJ 2 MG/ML (ATIVAN) VIAL IVP PRN ×3 (04:59→19:25)
--- NOTE | 2019-12-06 05:00 | NUR ---
THIS RN ASSISTED [employer]UMNI SECRETARY WITH DRAWING AM LABS. PATIENT ALLOWED TO DRAW LABS AND TOLERATED WELL. ONCE FINISHED, THIS RN ASKED PATIENT IF SHE NEEDED ANYTHING. SHE BECAME TEARFUL AND ANXIOUS. AFTER REPOSITIONING HER IN BED TO TRY AND MAKE HER MORE COMFORTABLE, PATIENT BEGAN YELLING AND WEEPING. PRN ATIVAN GIVEN AT THIS TIME.
[2019-12-06 05:22] LABS: BASOPHILS % (AUTO) 0 % (0-10); EOSINOPHILS # (AUTO) 0.1 10^3/uL (0.0-0.3); EOSINOPHILS % (AUTO) 2 % (0-10); HEMATOCRIT 29 % (35-52); LYMPHOCYTES # (AUTO) 0.8 X 10^3 (1.0-4.0); LYMPHOCYTES % (AUTO) 15 % (12-44); MEAN CORPUSCULAR HEMOGLOBIN 26 PG (25-34); MEAN CORPUSCULAR HGB CONC 31 G/DL (32-36); MEAN CORPUSCULAR VOLUME 83 FL (80-99); MEAN PLATELET VOLUME 10.4 FL (7.4-10.4); MONOCYTES # (AUTO) 0.5 X 10^3 (0.0-1.0); MONOCYTES % (AUTO) 9 % (0-12); NEUTROPHILS % (AUTO) 74 % (42-75); PLATELET COUNT 453 10^3/uL (130-400); RED CELL DISTRIBUTION WIDTH 13.2 % (10.0-14.5); WHITE BLOOD COUNT 5.4 10^3/uL (4.3-11.0)
[2019-12-06 05:41] LABS: BUN/CREATININE RATIO 20; CALCIUM 8.1 MG/DL (8.5-10.1); CARBON DIOXIDE 24 MMOL/L (21-32); CHLORIDE 110 MMOL/L (98-107); CREATININE SERUM 0.41 MG/DL (0.60-1.30); GFR ESTIMATED > 60; GLUCOSE 114 MG/DL (70-105); POTASSIUM 3.8 MMOL/L (3.6-5.0); SODIUM 140 MMOL/L (135-145)
[2019-12-06 07:49] VITALS: BP 92/51
--- NOTE | 2019-12-06 08:25 | Progress Note ---
Subjective Subjective Date Seen by Provider: Dec 06, 2019 Time Seen by Provider: 09:29 Significant other came yesterday afternoon and wanted to take patient home again. He was informed by staff again that he is not able to. Patient received ativan this am for anxiety/screaming when staff repositioned her. Labs obtained without event. Review of Systems ROS Unable to Obtain: unable to obtain due to patient condition General: Other (Unable to provide review of systems) Objective Exam Vital Signs Vital Signs Date Time Temp Pulse Resp B/P (MAP) Pulse Ox O2 Delivery O2 Flow Rate FiO2 12/06/19 07:49 37.3 82 18 92/51 (65) 97 Nasal Cannula 1.00 12/06/19 04:00 37.5 82 16 94/57 (69) 97 Nasal Cannula 1.00 12/06/19 00:00 37.6 51 16 101/65 (77) 95 Nasal Cannula 1.00 12/05/19 21:00 Nasal Cannula 1.00 12/05/19 20:00 37.4 76 20 122/74 (90) 99 Nasal Cannula 1.00 12/05/19 16:40 37.2 80 20 115/74 (88) 100 Nasal Cannula 1.00 12/05/19 11:42 36.6 76 20 105/63 (77) 99 Nasal Cannula 1.50 12/05/19 09:00 99 Nasal Cannula 1.50 12/05/19 08:29 36.2 72 18 114/72 (86) 95 Nasal Cannula 2.00 I & O 12/06/19 07:00 Intake Total 0 ml Output Total 2500 ml Balance -2500 ml General Appearance: No Apparent Distress, Cachetic Eyes: Bilateral Eye Normal Inspection Neck: Normal Inspection Respiratory: No Accessory Muscle Use, No Respiratory Distress Cardiovascular: Regular Rate, Rhythm, No Murmur Gastrointestinal: Normal Bowel Sounds, Soft Extremity: Other (And fracture of legs) Neurologic/Psychiatric: Alert, Other (non-verbal) Skin: Normal Color, Warm/Dry Lymphatic: No Adenopathy Results Lab Laboratory Tests 12/05/19 11:20: White Blood Count 7.3, Red Blood Count 3.56L, Hemoglobin 9.3L, Hematocrit 29L, Mean Corpuscular Volume 82, Mean Corpuscular Hemoglobin 26, Mean Corpuscular Hemoglobin Concent 32, Red Cell Distribution Width 13.1, Platelet Count 482H, Mean Platelet Volume 10.1, Neutrophils (%) (Auto) 91H, Lymphocytes (%) (Auto) 6L , Monocytes (%) (Auto) 3, Eosinophils (%) (Auto) 0, Basophils (%) (Auto) 0, Neutrophils # (Auto) 6.7, Lymphocytes # (Auto) 0.5L, Monocytes # (Auto) 0.2, Eosinophils # (Auto) 0.0, Basophils # (Auto) 0.0, Neutrophils % (Manual) 95, Lymphocytes % (Manual) 2, Monocytes % (Manual) 3, Polychromasia SLIGHT, Poikilocytosis SLIGHT, Sodium Level 139, Potassium Level 3.9, Chloride Level 109H, Carbon Dioxide Level 24, Anion Gap 6, Blood Urea Nitrogen 8, Creatinine 0.37L, Estimat Glomerular Filtration Rate > 60, BUN/Creatinine Ratio 22, Glucose Level 115H, Calcium Level 8.2L, Corrected Calcium 9.6, Phosphorus Level 3.6, Magnesium Level 1.6, Total Bilirubin 0.2, Aspartate Amino Transf (AST/SGOT) 21, Alanine Aminotransferase (ALT/SGPT) 32, Alkaline Phosphatase 73, Total Protein 4.7L, Albumin 2.3L 12/06/19 04:42: White Blood Count 5.4, Red Blood Count 3.49L, Hemoglobin 9.0L, Hematocrit 29L, Mean Corpuscular Volume 83, Mean Corpuscular Hemoglobin 26, Mean Corpuscular Hemoglobin Concent 31L, Red Cell Distribution Width 13.2, Platelet Count 453H, Mean Platelet Volume 10.4, Neutrophils (%) (Auto) 74, Lymphocytes (%) (Auto) 15, Monocytes (%) (Auto) 9, Eosinophils (%) (Auto) 2, Basophils (%) (Auto) 0, Neutrophils # (Auto) 4.0, Lymphocytes # (Auto) 0.8L, Monocytes # (Auto) 0.5, Eosinophils # (Auto) 0.1, Basophils # (Auto) 0.0, Sodium Level 140, Potassium Level 3.8, Chloride Level 110H, Carbon Dioxide Level 24, Anion Gap 6, Blood Urea Nitrogen 8, Creatinine 0.41L, Estimat Glomerular Filtration Rate > 60, BUN/Creatinine Ratio 20, Glucose Level 114H, Calcium Level 8.1L Microbiology 12/02/19 Blood Culture - Preliminary, Resulted No growth 11/29/19 MRSA Screen - Final, Complete MRSA not isolated Assessment/Plan Assessment/Plan Assessment and Plan -continue NG tube feedings- Jevity- will need senior living intervention with PE G tube- possibly will be placed within next couple days. -awaiting guardianship/legal proceedings. Social work consulted -police to be called if significant other shows up and does anything of concern. -monitor status. Problems: (1) Cachexia (2) Hyperthyroidism Assessment & Plan: continue beta yamile, methimazole (3) Anemia (4) Methamphetamine abuse Assessment & Plan: suspected from significant other giving it to her. (5) Multiple sclerosis Clinical Quality Measures DVT/VTE Risk/Contraindication: Risk Factor Score Per Nursin RFS Level Per Nursing on Admit: 4+=Very High ADA CARO MD Dec 06, 2019 08:25
[2019-12-06] MEDS: risperiDONE 1 MG (RisperDAL) TAB PO SCH ×2 (09:45→20:34)
[2019-12-06] MEDS: METHIMAZOLE TABLET 5 MG TABLET NG SCH ×2 (09:45→20:34)
[2019-12-06] MEDS: PANTOPRAZOLE 40 MG (PROTONIX) VIAL IV SCH (09:46)
[2019-12-06] MEDS: ENOXAPARIN 30 MG/0.3 ML (LOVENOX) SYR SC SCH (09:46)
[2019-12-06 11:43] VITALS: BP 93/54
--- NOTE | 2019-12-06 14:15 | Progress Note - Cardiology ---
Cardiology SOAP Progress Note Subjective: She is not communicative Cries, but does not report any symptoms Objective: I&O/Vital Signs 12/06/19 12/06/19 12/06/19 12/06/19 04:00 07:49 09:00 11:43 Temp 37.5 37.3 37.8 Pulse 82 82 90 Resp 16 18 16 B/P (MAP) 94/57 (69) 92/51 (65) 93/54 (67) Pulse Ox 97 97 97 98 O2 Delivery Nasal Cannula Nasal Cannula Nasal Cannula Nasal Cannula O2 Flow Rate 1.00 1.00 1.00 1.00 12/06/19 00:00 Intake Total 0 ml Output Total 1800 ml Balance -1800 ml Weight (Pounds): 96 Weight (Ounces): 1.0 Weight (Calculated Kilograms): 43.807630 Constitutional: other (cachectic, slurs words, cries, we're not able to determine orientation) Respiratory: other (fair to good air entry bilat) Cardiovascular: regular rate-rhythm, S1 and S2, systolic murmur (faint RONY at card base), other (NGT in place) Gastrointestional: soft, audible bowel sounds Extremities: No clubbing, No cyanosis, No significant edema Neurologic/Psychiatric: other (noncommunicative) Skin: No rash on exposed areas, No ulcerations on exposed areas Results/Procedures: Labs Laboratory Tests 12/06/19 04:42: White Blood Count 5.4, Red Blood Count 3.49L, Hemoglobin 9.0L, Hematocrit 29L, Mean Corpuscular Volume 83, Mean Corpuscular Hemoglobin 26, Mean Corpuscular Hemoglobin Concent 31L, Red Cell Distribution Width 13.2, Platelet Count 453H, Mean Platelet Volume 10.4, Neutrophils (%) (Auto) 74, Lymphocytes (%) (Auto) 15, Monocytes (%) (Auto) 9, Eosinophils (%) (Auto) 2, Basophils (%) (Auto) 0, Neutrophils # (Auto) 4.0, Lymphocytes # (Auto) 0.8L, Monocytes # (Auto) 0.5, Eosinophils # (Auto) 0.1, Basophils # (Auto) 0.0, Sodium Level 140, Potassium Level 3.8, Chloride Level 110H, Carbon Dioxide Level 24, Anion Gap 6, Blood Urea Nitrogen 8, Creatinine 0.41L, Estimat Glomerular Filtration Rate > 60, BUN/Creatinine Ratio 20, Glucose Level 114H, Calcium Level 8.1L Microbiology 12/02/19 Blood Culture - Preliminary, Resulted No growth 11/29/19 MRSA Screen - Final, Complete MRSA not isolated A/P: Assessment: Sinus tachycardia due to hyperthyroidism and cachexia/malnutrition Cachexia of unclear etiology Hyperthyroidism, managed by primary care physician Non-communicative status, etiology unclear, managed by primary care physician Multiple sclerosis, managed by primary care physician H/o methamphetamine use Plan: * She suffers from multiple comorbidities * Cardiac status is clinically stable * Diagnosis and management of cachexia and non-cardiac conditions is with the pcp service ALDAIR TOVAR MD FACP FACC CCDS Dec 06, 2019 14:15
[2019-12-06 16:00] VITALS: BP 107/64
--- NOTE | 2019-12-06 17:10 | NUR ---
CALLED TO PT BEDSIDE FOR BELLIGERENT S.O. S.O. SPEAKING LOUDLY, REPEATING THAT PT WANTS TO GO HOME. "SHE WANTS TO GO HOME TO EAT, GET A COLD DRINK, ET SMOKE A CIGARETTE." PT DOES IN FACT, MUMBLE THAT SHE WANTS TO GO HOME. PT MOANING ET FIDGETING S.O. YELLING AT THIS RN. S.O. REPEATS THAT PT IS ABLE TO EAT. NO ONE HERE WILL LET HER DRINK. THIS RN ATTEMPTED TO EXPLAIN TO S.O. CALMLY THAT PT IS VERY WEAK AT THIS TIME, UNABLE TO SWALLOW EFFECTIVELY. TUBE FEEDINGS ET IVF ARE BEING GIVEN TO STRENGTHEN PT. UNABLE TO COMMUNICATE SEVERITY OF PT'S ILLNESS WITH S.O. HE CUTS ME OFF REPEATEDLY. HE SAYS HE IS THE DPOA. DOES NOT UNDERSTAND THAT GUARDIANSHIP OVERRULES DPOA. POLICE TO BEDSIDE. ESCORTED PT OUT TO CAR TO OBTAIN DPOA PAPERS. OFFICER Sowmya CALDERA RETURNED TO FLOOR TO ASSESS SITUATION WITHOUT S.O. GUARDIANSHIP PAPERS PROVIDED FOR PD. OFFICER SUGGESTED THAT TRESPASSING ORDER BE IMPLEMENTED FOR S.O. TO KEEP PT OFF THE PROPERTY TONIGHT BECAUSE OF HIS THREAT TO PT'S WELLBEING ET BELLIGERENT BEHAVIOR WITH HOSPITAL STAFF. THIS RN AGREED TO ORDER. GUARDIAN NOTIFIED OF EVENTS. Addendum: 12/06/19 at 1833 by BERNARDA STOUT RN police escorted s.o. outside, not patient. trespassing order implemented to keep s.o. off the property unless he needs emergent medical care, not the pt
--- NOTE | 2019-12-06 17:27 | NUR ---
1710:SO IN ROOM. THIS NURSE OUTSIDE THE DOOR MONITORING. PATIENT BECAME VERY UPSET AND BEGAN CRYING LOUDLY. SO YELLING LOUDLY IN ROOM TELLING PATIENT TO TELL US SHE WANTS TO LEAVE. SO AT THIS TIME STANDING IN FRONT OF WINDOW LOOKING INTO PATIENTS ROOM POINTING AT RN AND YELLING "COME HERE SO SHE CAN TELL YOU SHE WANTS TO LEAVE". AT THIS TIME THIS RN ENTERED PATIENT ROOM AND ASKED SO TO CALM DOWN AND LOWER HIS VOICE. SO CONTINUES TO YELL AT THIS RN AND SAY HE IS HER DURABLE POWER OF PHYSICAL SCIENCE TEACHER AND HE IS GOING TO TAKE HER HOME. THIS RN EXPLAINED TO SO THAT SHE HAS A COURT APPOINTED GUARDIAN AT THIS TIME AND IT IS IN THE HANDS OF THE COURT NOW. SO CONTINUES TO YELL AND TELL THIS RN HE IS HER DURABLE POWER OF PHYSICAL SCIENCE TEACHER AND "THERE IS NOT A FUCKING THING I CAN DO ABOUT IT". AT THIS TIME THIS RN ASKED SO TO BEHAVE IN A CALM MANNER AND STOP UPSETTING PATIENT OR I WILL HAVE TO CALL THE POLICE. SO STATES "CALL THE FUCKING POLICE, I BET THEY WON'T COME". POLICE CALLED AT THIS TIME. WILL CONTINUE TO MONITOR. SO SEEMS TO BE UNDER THE INFLUENCE. PACING, SPEAKING VERY RAPIDLY, AND FIDGETING. 1724: POLICE HERE AT THIS TIME.
--- NOTE | 2019-12-06 17:30 | NUR ---
1730: PATIENT RESTING QUIETLY IN BED AT THIS TIME
--- NOTE | 2019-12-06 18:42 | NUR ---
PATIENT CRYING AND MOANING. PULLING AT PILLOWS AND TUBING. PATIENT REPOSITIONED FOR COMFORT AND GIVEN PRN MORPHINE AT THIS TIME.
[2019-12-06 20:00] VITALS: BP 111/80
[2019-12-06] MEDS: ACETAMINOPHEN 500 MG TAB (TYLENOL) PO PRN (20:34)
[2019-12-06] MEDS: HALOPERIDOL 5 MG/ML (HALDOL) AMP IM PRN (20:35)
[2019-12-07] VITALS (7 sets, daily range): BP systolic 90–153; BP diastolic 52–107
[2019-12-07] MEDS: LACTATED RINGERS 1,000 ML IV SCH ×2 (00:13→19:20)
[2019-12-07] MEDS: morphine INJ 4 MG/ML 1 ML (VIAL/SYRINGE) IVP PRN ×3 (03:20→18:01)
[2019-12-07] MEDS: cefTRIAXone FOR IV USE 1,000 MG in WATER (STERILE) FOR INJECTION 10 ML IV SCH (03:20)
[2019-12-07] MEDS: HALOPERIDOL 5 MG/ML (HALDOL) AMP IM PRN ×2 (03:21→06:02)
--- NOTE | 2019-12-07 03:21 | NUR ---
PT MOANING AND RESTLESS AT THIS TIME. WHEN ASKED IF SHE IS HURTING, PT SHAKES HEAD IN A "YES" MOTION. HALDOL 5MG IM AND MORPHINE 2MG IV GIVEN AT THIS TIME. WILL CONTINUE TO MONITOR.
[2019-12-07] MEDS: PROPRANOLOL 20 MG (INDERAL) TABLET NG SCH ×3 (05:44→18:02)
[2019-12-07] MEDS: predniSONE 20 MG TAB NG SCH (05:45)
--- NOTE | 2019-12-07 05:45 | NUR ---
HELD 0600 PROPRANOLOL 60MG PO THIS AM D/T PT HAVING LOW BP OF 93/52 PULSE 83.
[2019-12-07] MEDS: LORazepam INJ 2 MG/ML (ATIVAN) VIAL IVP PRN ×2 (06:02→18:41)
--- NOTE | 2019-12-07 06:02 | NUR ---
PT SOBBING AND MOANING AT THIS TIME. TRIED TO REPOSITION PT FOR COMFORT, BUT PT REMAINS TEARFUL. WHEN ASKED, PT DENIES ANY NEEDS BY SHAKING HEAD "NO". UNABLE TO COMPREHEND PT AND DETERMINE WANTS AT THIS TIME. PRN ATIVAN 1MG IV AND HALDOL 5MG IM GIVEN AT THIS TIME PER ORDER TO MAKE PT MORE COMFORTABLE. WILL CONTINUE TO MONITOR FOR S/S OF PAIN, ANXIETY, OR DISTRESS.
--- NOTE | 2019-12-07 06:36 | NUR ---
CM/SS: Late entry - 12-04 -Significant other present to speak with Mark Anthony, System Archive Analyst about his concerns. He is notified that we are waiting to hear from the attorneys in the case to let us know the next steps. Significant other decides to remain on the grounds of the hospital until a decisions is made. He has opted not to come upstairs to see pt, as he does not want to upset pt. DCF contacted. They are confident that they should know something related to the guardianship on today. 12:56pm - DCF indicated that the information was filed and waiting on extraction machine operator signature
--- NOTE | 2019-12-07 06:44 | NUR ---
CM/SS: Late Entry - 12-04-2019 - 3:57pm - [facility] notified this worker that temporary guardianship paperwork has been received, naming Tierney daniel as the temporary guardian. Paperwork faxed and printed as this worker was off campus and requested that staff pickup from printer and place on pt's file.
--- NOTE | 2019-12-07 07:39 | Progress Note ---
Subjective Time Seen by a Provider: 07:36 Subjective/Events-last exam Call down patient's name and what she diagnosis move her eyelids. Patient not communicating. Patient lying in bed without any distress Objective Exam Vital Signs Date Time Temp Pulse Resp B/P (MAP) Pulse Ox O2 Delivery O2 Flow Rate FiO2 12/07/19 04:00 37.0 83 18 93/52 (66) 98 Room Air 12/07/19 00:00 36.2 74 18 103/55 (71) 98 Room Air 12/06/19 21:00 Nasal Cannula 0.50 12/06/19 20:00 37.4 107 20 111/80 (90) 97 Nasal Cannula 0.50 12/06/19 16:00 36.6 102 20 107/64 (78) 96 Room Air 12/06/19 11:43 37.8 90 16 93/54 (67) 98 Nasal Cannula 1.00 12/06/19 09:00 97 Nasal Cannula 1.00 12/06/19 07:49 37.3 82 18 92/51 (65) 97 Nasal Cannula 1.00 I & O 12/07/19 07:00 Intake Total 1010 ml Output Total 2025 ml Balance -1015 ml Capillary Refill : Less Than 3 SecondsLess Than 3 Seconds General Appearance: No Apparent Distress, Cachetic Respiratory: Lungs Clear, No Accessory Muscle Use, No Respiratory Distress Cardiovascular: Regular Rate, Rhythm Results Lab Microbiology 12/02/19 Blood Culture - Preliminary, Resulted No growth 11/29/19 MRSA Screen - Final, Complete MRSA not isolated Assessment/Plan Assessment/Plan Assess & Plan/Chief Complaint Cachexia. Positive mass. Hyperthyroid. Multiple sclerosis history severe. Difficulty in communication. History of bipolar.. Dysphagia. . 11/27/2019. Cachexia. Positive for methamphetamine. Hyperthyroid. Multiple sclerosis severe. History of bipolar. Dysphagia.. To have ethics communicating meeting this a.m. . 11/30/19. Cachexia. Positive for meth. Hyperthyroid. Severe multiple sclerosis. History of bipolar. Dysphagia. . 12/01/19. Cachexia. Positive for meth. Hypothyroid. Severe multiple sclerosis. History of bipolar. Dysphagia. Problem with significant other. . 12/02/2019. Cachexia. Positive for meth. Hyperthyroid. Dysphagia. Bipolar. Multiple sclerosis severe. . 12/03/2019. Cachexia. Positive for methamphetamine Hyperthyroid. Dysphagia. Bipolar. Multiple sclerosis severe. position.. . 12/04/2019. Cachexia. Positive for methamphetamine. Hyperthyroid. Dysphagia. Bipolar. Multiple sclerosis severe. Patient in position.. . 12/07/2019. Cachexia. Positive for methamphetamine. Hyperthyroid. Dysphagia. Bipolar. Severe multiple sclerosis. Lower extremities fracture. Noncommunicative Clinical Quality Measures Admission Status Admission Dx Cachectic. Tachycardia. Hypertension. Positive for meth. Anemia. Hyperthyroid. Multiple sclerosis. Bipolar. Difficulty in communicating DVT/VTE Risk/Contraindication: Risk Factor Score Per Nursin RFS Level Per Nursing on Admit: 4+=Very High MARICRUZ VENTURA DO Dec 07, 2019 07:39
[2019-12-07] MEDS: PANTOPRAZOLE 40 MG (PROTONIX) VIAL IV SCH (08:22)
[2019-12-07 08:24] LABS: HEMOGLOBIN 9.2 G/DL (11.5-16.0); MEAN PLATELET VOLUME 9.7 FL (7.4-10.4); RED CELL DISTRIBUTION WIDTH 13.4 % (10.0-14.5); WHITE BLOOD COUNT 6.4 10^3/uL (4.3-11.0)
[2019-12-07] MEDS: METHIMAZOLE TABLET 5 MG TABLET NG SCH ×2 (08:27→21:14)
[2019-12-07] MEDS: risperiDONE 1 MG (RisperDAL) TAB PO SCH ×2 (08:27→21:14)
[2019-12-07] MEDS: ENOXAPARIN 30 MG/0.3 ML (LOVENOX) SYR SC SCH (08:27)
[2019-12-07 08:46] LABS: ALANINE AMINOTRANSFERASE 33 U/L (0-55); ALBUMIN 2.2 GM/DL (3.2-4.5); ALKALINE PHOSPHATASE 65 U/L (40-136); BILIRUBIN,TOTAL 0.1 MG/DL (0.1-1.0); BUN/CREATININE RATIO 19; CALCIUM 8.2 MG/DL (8.5-10.1); CARBON DIOXIDE 25 MMOL/L (21-32); CHLORIDE 109 MMOL/L (98-107); CREATININE SERUM 0.43 MG/DL (0.60-1.30); GFR ESTIMATED > 60; GLUCOSE 104 MG/DL (70-105); POTASSIUM 4.1 MMOL/L (3.6-5.0); SODIUM 139 MMOL/L (135-145); TOTAL PROTEIN 4.5 GM/DL (6.4-8.2)
--- NOTE | 2019-12-07 13:07 | NUR ---
RD FOLLOW-UP Pt currently receiving TF of Jevity 1.5 at goal rate of 35ml/hr, with flushes of 50ml q4h. Recommend continuing to keep formula at goal rate at this time to prevent overfeeding. At goal rate(with flushes), provides 1260 kcal (37 kcal/kg); 54 g Pro (1.6 g Pro/kg); and 938ml free water. Will continue to follow and reassess as pt needs and status change. Pauline Swann MS, RD, LD C; [phone]
--- NOTE | 2019-12-07 13:36 | NUR ---
MOANING. MS 2MG IV FOR APPARENT DISCOMFORT. HAD BEEN RESTING WELL AFTER LAST TURN.
[2019-12-08] VITALS (7 sets, daily range): BP systolic 99–130; BP diastolic 58–83
[2019-12-08] MEDS: morphine INJ 4 MG/ML 1 ML (VIAL/SYRINGE) IVP PRN (00:32)
[2019-12-08] MEDS: PROPRANOLOL 20 MG (INDERAL) TABLET NG SCH ×4 (00:32→18:00)
[2019-12-08] MEDS: predniSONE 20 MG TAB NG SCH (06:33)
--- NOTE | 2019-12-08 08:00 | NUR ---
PALLIATIVE CARE RN rounded with Dr. Larios. Patient is verbally expressive this morning with moaning and yes no responses. Patient continues to have NGT for nutritional and medication delivery. She has dried crusty oral secretions in her mouth and caked on her lips. Her head is up against the side rail and she does not appear to be comfortable. Patient repositioned and oral care completed. Education to PCT regarding good oral hygiene and positioning. We are awaiting order from court for DNR and Comfort Care.
--- NOTE | 2019-12-08 08:11 | Progress Note ---
Subjective Time Seen by a Provider: 08:09 Subjective/Events-last exam Patient crying this morning. Had ethic committee meeting yesterday. Waiting for Court response Objective Exam Vital Signs Date Time Temp Pulse Resp B/P (MAP) Pulse Ox O2 Delivery O2 Flow Rate FiO2 12/08/19 06:34 92 106/65 (79) 12/08/19 04:00 37.4 92 18 130/83 (99) 95 Room Air 12/08/19 00:20 37.4 122 18 110/73 (85) 98 Room Air 12/07/19 21:05 94 Room Air 12/07/19 20:00 37.5 131 22 104/69 (81) 94 Room Air 12/07/19 18:03 96/58 (71) 12/07/19 16:00 37.6 120 20 153/107 (122) 97 Room Air 12/07/19 13:22 92/54 (67) 12/07/19 12:00 38.1 119 20 94 Room Air 12/07/19 09:00 Room Air I & O 12/08/19 07:00 Intake Total 850 ml Output Total 2525 ml Balance -1675 ml Capillary Refill : Less Than 3 SecondsLess Than 3 Seconds General Appearance: No Apparent Distress HEENT: Normal ENT Inspection Respiratory: Lungs Clear, No Respiratory Distress Cardiovascular: Regular Rate, Rhythm, No Murmur Gastrointestinal: non tender, soft Results Lab Laboratory Tests 12/07/19 08:10: White Blood Count 6.4, Red Blood Count 3.53L, Hemoglobin 9.2L, Hematocrit 29L, Mean Corpuscular Volume 83, Mean Corpuscular Hemoglobin 26, Mean Corpuscular Hemoglobin Concent 31L, Red Cell Distribution Width 13.4, Platelet Count 470H, Mean Platelet Volume 9.7, Sodium Level 139, Potassium Level 4.1, Chloride Level 109H, Carbon Dioxide Level 25, Anion Gap 5, Blood Urea Nitrogen 8, Creatinine 0.43L, Estimat Glomerular Filtration Rate > 60, BUN/Creatinine Ratio 19, Glucose Level 104, Calcium Level 8.2L, Corrected Calcium 9.6, Total Bilirubin 0.1, Aspartate Amino Transf (AST/SGOT) 17, Alanine Aminotransferase (ALT/SGPT) 33, Alkaline Phosphatase 65, Total Protein 4.5L, Albumin 2.2L Microbiology 12/02/19 Blood Culture - Final, Complete No growth 11/29/19 MRSA Screen - Final, Complete MRSA not isolated Assessment/Plan Assessment/Plan Assess & Plan/Chief Complaint Cachexia. Positive mass. Hyperthyroid. Multiple sclerosis history severe. Difficulty in communication. History of bipolar.. Dysphagia. . 11/27/2019. Cachexia. Positive for methamphetamine. Hyperthyroid. Multiple sclerosis severe. History of bipolar. Dysphagia.. To have ethics communicating meeting this a.m. . 11/30/19. Cachexia. Positive for meth. Hyperthyroid. Severe multiple sclerosis. History of bipolar. Dysphagia. . 12/01/19. Cachexia. Positive for meth. Hypothyroid. Severe multiple sclerosis. History of bipolar. Dysphagia. Problem with significant other. . 12/02/2019. Cachexia. Positive for meth. Hyperthyroid. Dysphagia. Bipolar. Multiple sclerosis severe. . 12/03/2019. Cachexia. Positive for methamphetamine Hyperthyroid. Dysphagia. Bipolar. Multiple sclerosis severe. position.. . 12/04/2019. Cachexia. Positive for methamphetamine. Hyperthyroid. Dysphagia. Bipolar. Multiple sclerosis severe. Patient in position.. . 12/07/2019. Cachexia. Positive for methamphetamine. Hyperthyroid. Dysphagia. Bipolar. Severe multiple sclerosis. Lower extremities fracture. Noncommunicative. . 12/08/2019. Cachexia. Positive for methamphetamine. Hyperthyroid. Dysphagia. Bipolar. Severe multiple sclerosis. Noncommunication Clinical Quality Measures Admission Status Admission Dx Cachectic. Tachycardia. Hypertension. Positive for meth. Anemia. Hyperthyroid. Multiple sclerosis. Bipolar. Difficulty in communicating DVT/VTE Risk/Contraindication: Risk Factor Score Per Nursin RFS Level Per Nursing on Admit: 4+=Very High MARICRUZ VENTURA DO Dec 08, 2019 08:11
[2019-12-08] MEDS: PANTOPRAZOLE 40 MG (PROTONIX) VIAL IV SCH (10:02)
[2019-12-08] MEDS: ENOXAPARIN 30 MG/0.3 ML (LOVENOX) SYR SC SCH (10:02)
[2019-12-08] MEDS: METHIMAZOLE TABLET 5 MG TABLET NG SCH ×2 (10:02→19:34)
[2019-12-08] MEDS: risperiDONE 1 MG (RisperDAL) TAB PO SCH ×2 (10:02→19:35)
[2019-12-08] MEDS: LORazepam INJ 2 MG/ML (ATIVAN) VIAL IVP PRN ×3 (10:03→20:53)
--- NOTE | 2019-12-08 11:57 | NUR ---
RD FOLLOW-UP Pt receiving enteral nutrition at goal rate of 35ml/hr, with 50ml flushes q4h. Recommend continuation at goal rate to prevent overfeeding. Will continue to follow and reassess as pt needs and status change. Pauline Swann, MS, RD, LD
--- NOTE | 2019-12-08 15:30 | NUR ---
patient pulled out feeding tube, new tube placed. Call placed to Dr. Larios for order for CXR to confirm placement of tube.
--- NOTE | 2019-12-08 15:59 | Diagnostic Imaging Report ---
INDICATION: Dobbhoff placement. Frontal chest obtained at 03:50 p.m. The heart and mediastinal silhouette are normal in appearance. Lungs are clear. There is no pneumothorax or pleural fluid. Dobbhoff tube is seen with tip overlying the lower esophagus. IMPRESSION: No acute infiltrate or pleural fluid. Dobbhoff tube tip overlies lower esophagus. Dictated by: Dictated on workstation # [id number]
--- NOTE | 2019-12-08 16:05 | NUR ---
Pastoral Care visit, pt said yes when I asked if she would like me to pray. Pt cried as I held her hand and prayed.
--- NOTE | 2019-12-08 16:25 | NUR ---
CM/SS: Order signed by Eye Glass Frame Polisher Pedro Valentine, [place], [place] giving the Order to Withhold life saving or live sustaining Care, treatment, Services or Medical Procedures. Plan: Pt to discharge to [facility] when deemed appropriately
[2019-12-08] MEDS: LACTATED RINGERS 1,000 ML IV SCH (16:27)
--- NOTE | 2019-12-08 16:30 | NUR ---
Patient pulled out feeding tube. Call placed to Dr. Larios to notify that patient had pulled two tubes out today. Received order for swallow eval in am, and to leave feeding tube out until after swallow study in am. Notified that patient is saying a couple words at this time.
[2019-12-09] VITALS: BP 128/80
[2019-12-09] MEDS: PROPRANOLOL 20 MG (INDERAL) TABLET NG SCH ×3 (00:07→12:41)
[2019-12-09] MEDS: morphine INJ 4 MG/ML 1 ML (VIAL/SYRINGE) IVP PRN (01:11)
[2019-12-09 04:06] VITALS: BP 123/74
[2019-12-09] MEDS: LORazepam INJ 2 MG/ML (ATIVAN) VIAL IVP PRN (05:56)
[2019-12-09] MEDS: predniSONE 20 MG TAB NG SCH (06:29)
--- NOTE | 2019-12-09 07:00 | Progress Note ---
Subjective Time Seen by a Provider: 06:55 Subjective/Events-last exam Patient pulled out her nasogastric tube last night a few times. Patient is morning dramatically improved. Patient is awake. Patient is talking. Patient is answering some questions. Patient states she would like to eat when asked. To have speech evaluation this morning. Patient not in contractures this a.m. of lower extremities Objective Exam Vital Signs Date Time Temp Pulse Resp B/P (MAP) Pulse Ox O2 Delivery O2 Flow Rate FiO2 12/09/19 04:06 36.4 90 20 123/74 (90) 96 Room Air 12/09/19 00:00 36.4 93 20 128/80 (96) 100 Room Air 12/08/19 20:00 36.2 92 20 122/77 (92) 100 Room Air 12/08/19 20:00 Room Air 12/08/19 16:00 36.4 91 20 112/72 (85) 97 Room Air 12/08/19 12:00 37.0 76 18 99/58 (72) 100 Room Air 12/08/19 09:00 Room Air 12/08/19 08:21 36.8 77 18 101/67 (78) 97 Room Air I & O0 12/09/19 07:00 Intake Total 400 ml Output Total 2425 ml Balance -2025 ml Capillary Refill : Less Than 3 SecondsLess Than 3 Seconds General Appearance: No Apparent Distress, Cachetic HEENT: Normal ENT Inspection Neck: Normal Inspection Respiratory: Lungs Clear, No Accessory Muscle Use, No Respiratory Distress Cardiovascular: Regular Rate, Rhythm, No Murmur Gastrointestinal: non tender, soft Results Lab Microbiology 12/02/19 Blood Culture - Final, Complete No growth 11/29/19 MRSA Screen - Final, Complete MRSA not isolated Assessment/Plan Assessment/Plan Assess & Plan/Chief Complaint Cachexia. Positive mass. Hyperthyroid. Multiple sclerosis history severe. Difficulty in communication. History of bipolar.. Dysphagia. . 11/27/2019. Cachexia. Positive for methamphetamine. Hyperthyroid. Multiple sclerosis severe. History of bipolar. Dysphagia.. To have ethics communicating meeting this a.m. . 11/30/19. Cachexia. Positive for meth. Hyperthyroid. Severe multiple sclerosis. History of bipolar. Dysphagia. . 12/01/19. Cachexia. Positive for meth. Hypothyroid. Severe multiple sclerosis. History of bipolar. Dysphagia. Problem with significant other. . 12/02/2019. Cachexia. Positive for meth. Hyperthyroid. Dysphagia. Bipolar. Multiple sclerosis severe. . 12/03/2019. Cachexia. Positive for methamphetamine Hyperthyroid. Dysphagia. Bipolar. Multiple sclerosis severe. position.. . 12/04/2019. Cachexia. Positive for methamphetamine. Hyperthyroid. Dysphagia. Bipolar. Multiple sclerosis severe. Patient in position.. . 12/07/2019. Cachexia. Positive for methamphetamine. Hyperthyroid. Dysphagia. Bipolar. Severe multiple sclerosis. Lower extremities fracture. Noncommunicative. . 12/08/2019. Cachexia. Positive for methamphetamine. Hyperthyroid. Dysphagia. Bipolar. Severe multiple sclerosis. Noncommunication. . 12/09/11 20 Cachexia. Hypothyroid. Bipolar. Severe multiple sclerosis. Patient woke up this morning and conversing. Lower contractures better Final Diagnosis Cachexia. The thyroid. Multiple sclerosis. History of bipolar Clinical Quality Measures Admission Status Admission Dx Cachectic. Tachycardia. Hypertension. Positive for meth. Anemia. Hyperthyroid. Multiple sclerosis. Bipolar. Difficulty in communicating DVT/VTE Risk/Contraindication: Risk Factor Score Per Nursin RFS Level Per Nursing on Admit: 4+=Very High MARICRUZ VENTURA DO Dec 09, 2019 07:00
[2019-12-09 07:29] VITALS: BP 105/65
[2019-12-09] MEDS: risperiDONE 1 MG (RisperDAL) TAB PO SCH ×2 (07:58→09:23)
[2019-12-09] MEDS: METHIMAZOLE TABLET 5 MG TABLET NG SCH ×2 (07:58→09:23)
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
[2019-12-09 08:49] LABS: BASOPHILS % (AUTO) 0 % (0-10); EOSINOPHILS # (AUTO) 0.1 10^3/uL (0.0-0.3); EOSINOPHILS % (AUTO) 2 % (0-10); HEMATOCRIT 30 % (35-52); HEMOGLOBIN 9.6 G/DL (11.5-16.0); LYMPHOCYTES # (AUTO) 0.8 X 10^3 (1.0-4.0); LYMPHOCYTES % (AUTO) 12 % (12-44); MEAN CORPUSCULAR HEMOGLOBIN 26 PG (25-34); MEAN CORPUSCULAR HGB CONC 32 G/DL (32-36); MEAN CORPUSCULAR VOLUME 82 FL (80-99); MEAN PLATELET VOLUME 9.3 FL (7.4-10.4); MONOCYTES # (AUTO) 0.6 X 10^3 (0.0-1.0); MONOCYTES % (AUTO) 8 % (0-12); NEUTROPHILS # (AUTO) 5.8 X 10^3 (1.8-7.8); NEUTROPHILS % (AUTO) 79 % (42-75); PLATELET COUNT 541 10^3/uL (130-400); RED CELL DISTRIBUTION WIDTH 13.7 % (10.0-14.5); WHITE BLOOD COUNT 7.3 10^3/uL (4.3-11.0)
--- NOTE | 2019-12-09 08:53 | ST Dysphagia Evaluation ---
Speech Evaluation-General Medical Diagnosis Falls/Decreased Level of Conscience Onset Date: Nov 24, 2019 Therapy Diagnosis Therapy Diagnosis: Oropharyngeal Dysphagia Precautions Precautions: Aspiration Referral Referring Physician: Dr. Larios Medical History Reviewed History: Yes Social History Current Living Status: Significant Other Speech PLF/Current-Dysphagia Prior Level of Function Patient lived at home with a SO. It is unknown as to what the patient was able to eat while living in the home. Subjective Patient was alert and cooperative with the Bedside Dysphagia Evaluation. Cognitive Status Patient Orientation: Person, Place Patient was much more alert than previously during this whole admission. She was able to converse with one word and short phrases. She answered questions appropriately. Oral Motor Skills Dentition: Natural, Tumbled, Stained Current Food Consistancy: Regular Ability to Follow Directions: Good Oral Expression Ability: Mild Impairment Voice Voice Phonatory-Based Quality: Weak Voice Loudness: Moderately Soft/Quiet Face Facial Symmetry: Symmetrical Oral-Facial Assessment Oral-Facial Dentition: Normal Labial Seal Description: Normal Puff Cheeks: Reduced Strength Lingual Protrusion: Normal Lingual ROM: Normal Lingual Strength: Normal Volitional Dry Swallow: Yes Dysphagia Evaluation Consistencies Presented: Thin Liquid, Pureed Oral phase within normal limits for thin and puree as presented. Pharyngeal phase within normal limits for thin and puree as presented. Dietary Recommendations: Pureed Liquid Recommendations: Thin Swallowing Precautions: Alternate Liquids/Solids, Decreased Bolus 1/2 Tsp, Liquids from Straw, Liquids from Spoon, Small Bites and Sips, Sitting Upright 90 Degrees, Sitting 90 Degrees 30 Post Intake Dysphagia Evaluation Summary Patient has been evaluated at bedside prior to this date with significant delay in swallow. Recommendations at that time were to receive nutrition/hydration via alternate method. Today a repeat Bedside Dysphagia Evaluation was completed. The patient is much more alert and demo expressive verbalizations. Patient was presented thin at 1/2 tsp x3 without difficulty, via straw with small sips x2 without difficult. Puree was presented at 1/2 tsp x3 without difficulty. Swallow is within normal limits of function. At this time recommendation is for Dysphagia I with thin liquids. Patient will require assistance with all oral intake. Patient stated she was hungry and wanted some breakfast. Patient will be followed by ST following 24 hours. Patient may be able to upgrade in diet as she recovers. Barriers to Learning Patient's recent medical status Speech Short Term Goals Short Term Goals Short Term Goals 1) Patient will tolerate least restrictive diet level without s/s of aspiration at 80% or greater. 2) Patient/caregiver will utilize compensatory strategies as trained for safe oral intake at 90% or greater. Speech Icer Hand Goals Half-Way Goals Patient will maintain adequate nutrition/hydration via safe effective swallow function. Speech-Plan Patient/Family Goals Patient/Family Goals: Patient is expected to go to a terminal makeup operator care facility upon discharge. Treatment Plan Speech Therapy Treatment Plan: Continue Plan of Care Treatment Duration: Nov 30, 2019 Frequency: 3 times per week Estimated Hrs Per Day: .25 hour per day Rehab Potential: Fair Barriers to Learning: Patient's recent medical status. Pt/Family Agrees to Plan: Yes Safety Risks/Education Teaching Recipient: Patient Teaching Methods: Demonstration, Discussion Response to Teaching: Verbalize Understanding, Return Demonstration Education Topics Provided: Safety of oral intake, diet level Time Speech Therapy Time In: 08:05 Speech Therapy Time Out: 08:20 Total Billed Time: 15 Billed Treatment Time [address] Dec 09, 2019 08:53
[2019-12-09 09:11] LABS: ALANINE AMINOTRANSFERASE 27 U/L (0-55); ALBUMIN 2.5 GM/DL (3.2-4.5); ALKALINE PHOSPHATASE 72 U/L (40-136); BILIRUBIN,TOTAL 0.2 MG/DL (0.1-1.0); BUN/CREATININE RATIO 21; CALCIUM 8.6 MG/DL (8.5-10.1); CARBON DIOXIDE 25 MMOL/L (21-32); CHLORIDE 107 MMOL/L (98-107); CREATININE SERUM 0.42 MG/DL (0.60-1.30); GFR ESTIMATED > 60; GLUCOSE 96 MG/DL (70-105); POTASSIUM 3.7 MMOL/L (3.6-5.0); SODIUM 139 MMOL/L (135-145); TOTAL PROTEIN 5.1 GM/DL (6.4-8.2)
[2019-12-09] MEDS: PANTOPRAZOLE 40 MG (PROTONIX) VIAL IV SCH (09:23)
[2019-12-09] MEDS: ENOXAPARIN 30 MG/0.3 ML (LOVENOX) SYR SC SCH (09:25)
--- NOTE | 2019-12-09 09:42 | NUR ---
PALLIATIVE CARE RN spoke with patients Tierney OLVERA this morning regarding plan for discharge with hospice services. Choice hospice is [facility]. Patient this morning is without NGT feedings and was able to eat a small amount of breakfast. Reported by others that her legs were more straight earlier with less contracture...and she was able to answer questions appropriately.
--- NOTE | 2019-12-09 10:06 | Physical Therapy Evaluation ---
PT Evaluation-General Medical Diagnosis Admission Date Nov 24, 2019 at 20:50 Medical Diagnosis: Falls/Decreased Level of Conscience Onset Date: Nov 24, 2019 Therapy Diagnosis Therapy Diagnosis: impaired mobility, strength, endurance, ROM Height/Weight Height (Feet): 5 Height (Inches): 4.00 Weight (Pounds): 96 Weight (Ounces): 1.0 Precautions Precautions/Isolations: Aspiration, Fall Prevention, Standard Precautions Weight Bear Status Right Lower Extremity: Right Weight Bearing/Tolerated Left Lower Extremity: Left Weight Bearing/Tolerated Referral Physician: Ric Reason for Referral: Evaluation/Treatment Medical History Additional Medical History Past Medical History Cardiac: Hypertension Neurological: Multiple Sclerosis Reproductive: No Genitourinary: UTI-Chronic Gastrointestinal: Pancreatitis Musculoskeletal: Fractures Psychosocial: Bipolar, Schizophrenia History of Blood Disorders: No Adverse Reaction to Blood Elias: No Reviewed History: Yes Social History Current Living Status: Significant Other Patient is unable to communicate, franklyn Prior Prior Level of Function SCALE: Activities may be completed with or without assistive devices. 8-[id number] completes the activity by him/herself with no assistance from a helper. 5-Set-up or Clean-up Assistance-helper sets up or cleans up; patient completes activity. Welch assists only prior to or following the activity. 4-Supervision or Touching Assistance-helper provides verbal cues and/or touching/steadying and/or contact guard assistance as patient completes activity. Assistance may be provided throughout the activity or intermittently. 3-Partial/Moderate Assistance-helper does LESS THAN HALF the effort. Welch lifts, holds or supports trunk or limbs, but provides less than half the effort. 2-Substantial/Maximal Assistance-helper does MORE THAN HALF the effort. Welch lifts or holds trunk or limbs and provides more than half the effort. 1-[id number]-opdohq does ALL the effort. Patient does none of the effort to complete the activity. Or, the assistance of 2 or more helpers is required for the patient to complete the activity. If activity was not attempted, code reason: 7-Patient Refused. 9-Not Applicable-not attempted and the patient did not perform the activity before the current illness, exacerbation or injury. 10-Not Attempted due to Environmental Limitations-(lack of equipment, weather restraints, etc.). 88-Not Attempted due to Medical Conditions or Safety Concerns. unknown PT Evaluation-Current Subjective Patient in bed pre tx, she just mumbles but seems to agree to work with PT, unknown if she has any pain. Pt/Family Goals none stated Objective Patient Orientation: Person, Confused, Non-Verbal/Aphasic, Mumbles Attachments: Chambers Catheter, IV ROM/Strength ROM Lower Extremities severe contractures of the knees and hips both sides Strength Lower Extremities unable to test Neuromuscular (Tone, Coordination, Reflexes) Patient has nystagmus with tracking both sides, cannot track well Transfers Roll Left to Right (QC): 1 Sit to Lying (QC): 1 Lying to Sitting/Side of Bed(Q: 1 Patient sits at the side of the bed with dependence of 2 people (PT tech), she is able to assist a little but 2 people are still required. Patient starts crying after sitting, nurse comes in to reassure her and she stops. Patient is able to sit for about 5 min with cues for posture but cannot sit on her own. Not able to perform exercises with LE when sitting. Balance Sitting Static: Poor Sitting Dynamic: Poor Treatment BLE PROM knee and hip extension Assessment/Needs Patient has impaired mobility, strength, endurance, balance. Patient in bed post tx with nurse call, phone, tray, all needs met. Patient does assist a little to sit on the side of the bed but is still dependent for mobility. Rehab Potential: Poor PT Metal Sorter Goals Alf Goals PT Alf Goals Time Frame: Dec 16, 2019 Roll Left & Right (QC): 2 Sit to Lying (QC): 2 Lying-Sitting on Side/Bed(QC): 2 PT Plan Problem List Problem List: Activity Tolerance, Functional Strength, Safety, Balance, Gait, Transfer, Bed Mobility, ROM Treatment/Plan Treatment Plan: Continue Plan of Care Treatment Plan: Bed Mobility, Education, Functional Activity [place], Functional Strength, Gait, Safety, Therapeutic Exercise, Transfers Treatment Duration: Dec 16, 2019 Frequency: 5 times per week Estimated Hrs Per Day: .25 hour per day Patient and/or Family Agrees t: Yes Safety Risks/Education Patient Education: Transfer Techniques, Correct Positioning, Safety Issues Teaching Recipient: Patient Teaching Methods: Demonstration, Discussion Response to Teaching: Reinforcement Needed Discharge Recommendations Plan Patient will perform bed mobility and transfer training, ROM/stretching to improve functional mobility. Therapy Discharge Recommendati: Other, See Comments ([place]) Time/GCodes Time In: 929 Time Out: 945 Total Billed Treatment Time: 16 Total Billed Treatment 1 visit [facility] 16' RUDY ZIMMERMAN PT Dec 09, 2019 10:06
[2019-12-09 12:12] VITALS: BP 121/76
[2019-12-09] MEDS ORDERED: PROP20TA5 PO (12:27)
[2019-12-09] MEDS ORDERED: ACET-93 PO (12:27)
[2019-12-09] MEDS ORDERED: METH5TAB5 PO (12:27)
[2019-12-09] MEDS ORDERED: RISP1TAB3 PO (12:27)
[2019-12-09] MEDS ORDERED: PRD20T PO (12:27)
[2019-12-09] MEDS ORDERED: FAMO-119 PO (12:28)
[2019-12-09] MEDS: LACTATED RINGERS 1,000 ML IV SCH (12:43)
--- NOTE | 2019-12-09 13:27 | NUR ---
CM/SS: Plan for discharge Plan: Pt will discharge today to [facility] with [facility] Summary: Pt is awake and able to take food by mouth today. Level 1 CARE assessment competed Guardian Tierney Han notified that her signature will be needed for the CARE assessment, as well as the facility can take pt today at 2:30pm. She will be here at that time. Referral information faxed to [facility] and they are able to have a manufacturer's representative (Jayson) meet the guardian at 3:00pm at the facility. Discharge orders/ summary faxed to [facility] SAMAN Pettit notified of the plan for pt discharging to [facility], Discharge orders/ summary faxed to Hillary Pettit Facility will molded goods spot picker pt at 2:30pm today Addendum: 12/09/19 at 1510 by LARRY LOVE CM/SS: Level 1 CARE Assessment faxed to [place] [facility] [phone].
--- NOTE | 2019-12-09 14:30 | NUR ---
REPORT TO KRISTINE AT [facility].
--- NOTE | 2019-12-09 15:23 | NUR ---
DC'D PER WC TO [facility] PER WC AFTER TRANSFERRED WITH MAXINE LIFT. DC INFORMATION PACKET TO [employer].
--- NOTE | 2019-12-10 07:33 | Discharge Summary ---
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 0.1, Basophils # (Auto) 0.0, Sodium Level 138, Potassium Level 3.7, Chloride Level 107, Carbon Dioxide Level 23, Anion Gap 8, Blood Urea Nitrogen 14, Creatinine 0.46, Estimat Glomerular Filtration Rate > 60, BUN/Creatinine Ratio 30, Glucose Level 85, Calcium Level 8.5, Phosphorus Level 3.4, Magnesium Level 1.4 11/30/19 03:58: White Blood Count 12.0, Red Blood Count 4.73, Hemoglobin 12.4, Hematocrit 38, Mean Corpuscular Volume 81, Mean Corpuscular Hemoglobin 26, Mean Corpuscular Hemoglobin Concent 33, Red Cell Distribution Width 12.6, Platelet Count 410, Angella n Platelet Volume 10.5, Neutrophils (%) (Auto) 84, Lymphocytes (%) (Auto) 8, Monocytes (%) (Auto) 7, Eosinophils (%) (Auto) 1, Basophils (%) (Auto) 0, Neutrophils # (Auto) 10.1, Lymphocytes # (Auto) 0.9, Monocytes # (Auto) 0.9, Eosinophils # (Auto) 0.1, Basophils # (Auto) 0.0, Sodium Level 138, Potassium Level 4.8, Chloride Level 104, Carbon Dioxide Level 22, Anion Gap 12, Blood Urea Nitrogen 14, Creatinine 0.47, Estimat Glomerular Filtration Rate > 60, BUN/Creatinine Ratio 30, Glucose Level 71, Calcium Level 7.6, Phosphorus Level 3.6, Magnesium Level 1.4 11/30/19 08:50: Free Thyroxine 1.47, TSH [place] Testing 0.00 12/01/19 04:20: White Blood Count 16.0, Red Blood Count 4.79, Hemoglobin 12.5, Hematocrit 39, Mean Corpuscular Volume 81, Mean Corpuscular Hemoglobin 26, Mean Corpuscular Hemoglobin Concent 32, Red Cell Distribution Width 13.0, Platelet Count 494, Mean Platelet Volume 10.7, Neutrophils (%) (Auto) 90, Lymphocytes (%) (Auto) 5, Monocytes (%) (Auto) 6, Eosinophils (%) (Auto) 0, Basophils (%) (Auto) 0, Neutrophils # (Auto) 14.4, Lymphocytes # (Auto) 0.7, Monocytes # (Auto) 0.9, Eosinophils # (Auto) 0.0, Basophils # (Auto) 0.0, Sodium Level 140, Potassium Level 4.0, Chloride Level 104, Carbon Dioxide Level 22, Anion Gap 14, Blood Urea Nitrogen 12, Creatinine 0.55, Estimat Glomerular Filtration Rate > 60, BUN/Creatinine Ratio 22, Glucose Level 85, Calcium Level 8.8, Phosphorus Level 3.3, Magnesium Level 1.3, Neutrophils % (Manual) 90, Lymphocytes % (Manual) 4, Monocytes % (Manual) 6 12/02/19 04:20: White Blood Count 19.5, Red Blood Count 4.13, Hemoglobin 10.9, Hematocrit 34, Mean Corpuscular Volume 81, Mean Corpuscular Hemoglobin 26, Mean Corpuscular Hemoglobin Concent 33, Red Cell Distribution Width 13.0, Platelet Count 432, Mean Platelet Volume 11.2, Neutrophils (%) (Auto) 89, Lymphocytes (%) (Auto) 3, Monocytes (%) (Auto) 8, Eosinophils (%) (Auto) 0, Basophils (%) (Auto) 0, Neutrophils # (Auto) 17.4, Lymphocytes # (Auto) 0.7, Monocytes # (Auto) 1.5, Eosinophils # (Auto) 0.0, Basophils # (Auto) 0.0, Sodium Level 137, Potassium Level 3.7, Chloride Level 104, Carbon Dioxide Level 23, Anion Gap 10, Blood Urea Nitrogen 12, Creatinine 0.48, Estimat Glomerular Filtration Rate > 60, BUN/Creatinine Ratio 25, Glucose Level 86, Calcium Level 8.5, Phosphorus Level 2.7, Magnesium Level 1.4 12/02/19 04:55: Lactic Acid Level 0.74 12/02/19 09:36: Urine Color YELLOW, Urine Clarity CLOUDY, Urine pH 7.5, Urine Specific [place] 1.010, Urine Protein TRACE, Urine Glucose (UA) NEGATIVE, Urine Ketones NEGATIVE, Urine Nitrite NEGATIVE, Urine Bilirubin NEGATIVE, Urine Urobilinogen NORMAL, Urine Leukocyte Esterase 3+, Urine RBC (Auto) 2+, Urine RBC 10-25, Urine WBC 2- 5, Urine Crystals PRESENT, Urine Triple Phosphate Crystals FEW, Urine Amorphous Sediment MOD LIZA PHOSPHATE, Urine Bacteria NEGATIVE, Urine Casts NONE, Urine Mucus NEGATIVE, Urine Culture Indicated NO 12/03/19 05:10: White Blood Count 12.7, Red Blood Count 3.64, Hemoglobin 9.7, Hematocrit 31, Mean Corpuscular Volume 85, Mean Corpuscular Hemoglobin 27, Mean Corpuscular Hemoglobin Concent 31, Red Cell Distribution Width 13.3, Platelet Count 253, Mean Platelet Volume 11.2, Neutrophils (%) (Auto) 86, Lymphocytes (%) (Auto) 7, Monocytes (%) (Auto) 6, Eosinophils (%) (Auto) 0, Basophils (%) (Auto) 0, Neutrophils # (Auto) 11.0, Lymphocytes # (Auto) 0.9, Monocytes # (Auto) 0.8, Eosinophils # (Auto) 0.0, Basophils # (Auto) 0.0, Sodium Level 136, Potassium Level 4.5, Chloride Level 105, Carbon Dioxide Level 24, Anion Gap 7, Blood Urea Nitrogen 11, Creatinine 0.48, Estimat Glomerular Filtration Rate > 60, BUN/Creatinine Ratio 23, Glucose Level 115, Calcium Level 8.0, Phosphorus Level 3.3, Magnesium Level 1.6 12/04/19 04:45: White Blood Count 10.8, Red Blood Count 3.80, Hemoglobin 9.9, Hematocrit 31, Mean Corpuscular Volume 82, Mean Corpuscular Hemoglobin 26, Mean Corpuscular Hemoglobin Concent 32, Red Cell Distribution Width 13.1, Platelet Count 400, Angella n Platelet Volume 11.1, Neutrophils (%) (Auto) 87, Lymphocytes (%) (Auto) 6, Monocytes (%) (Auto) 7, Eosinophils (%) (Auto) 0, Basophils (%) (Auto) 0, Neutrophils # (Auto) 9.4, Lymphocytes # (Auto) 0.6, Monocytes # (Auto) 0.8, Eosinophils # (Auto) 0.0, Basophils # (Auto) 0.0, Sodium Level 139, Potassium Level 3.4, Chloride Level 106, Carbon Dioxide Level 25, Anion Gap 8, Blood Urea Nitrogen 10, Creatinine 0.48, Estimat Glomerular Filtration Rate > 60, BUN/Creatinine Ratio 21, Glucose Level 118, Calcium Level 8.5, Phosphorus Level 3.0, Magnesium Level 1.5, Free Thyroxine 1.19, TSH [place] Testing 0.00 12/05/19 11:20: White Blood Count 7.3, Red Blood Count 3.56, Hemoglobin 9.3, Hematocrit 29, Mean Corpuscular Volume 82, Mean Corpuscular Hemoglobin 26, Mean Corpuscular Hem oglobin Concent 32, Red Cell Distribution Width 13.1, Platelet Count 482, Mean Platelet Volume 10.1, Neutrophils (%) (Auto) 91, Lymphocytes (%) (Auto) 6, Monocytes (%) (Auto) 3, Eosinophils (%) (Auto) 0, Basophils (%) (Auto) 0, Neutrophils # (Auto) 6.7, Lymphocytes # (Auto) 0.5, Monocytes # (Auto) 0.2, Eosinophils # (Auto) 0.0, Basophils # (Auto) 0.0, Sodium Level 139, Potassium Level 3.9, Chloride Level 109, Carbon Dioxide Level 24, Anion Gap 6, Blood Urea Nitrogen 8, Creatinine 0.37, Estimat Glomerular Filtration Rate > 60, BUN/Creatinine Ratio 22, Glucose Level 115, Calcium Level 8.2, Phosphorus Level 3.6, Magnesium Level 1.6, Neutrophils % (Manual) 95, Lymphocytes % (Manual) 2, Monocytes % (Manual) 3, Polychromasia SLIGHT, Poikilocytosis SLIGHT, Corrected Calcium 9.6, Total Bilirubin 0.2, Aspartate Amino Transf (AST/SGOT) 21, Alanine Aminotransferase (ALT/SGPT) 32, Alkaline Phosphatase 73, Total Protein 4.7, Albumin 2.3 12/06/19 04:42: White Blood Count 5.4, Red Blood Count 3.49, Hemoglobin 9.0, Hematocrit 29, Mean Corpuscular Volume 83, Mean Corpuscular Hemoglobin 26, Mean Corpuscular Hemoglobin Concent 31, Red Cell Distribution Width 13.2, Platelet Count 453, Mean Platelet Volume 10.4, Neutrophils (%) (Auto) 74, Lymphocytes (%) (Auto) 15, Monocytes (%) (Auto) 9, Eosinophils (%) (Auto) 2, Basophils (%) (Auto) 0, Neutrophils # (Auto) 4.0, Lymphocytes # (Auto) 0.8, Monocytes # (Auto) 0.5, Eosinophils # (Auto) 0.1, Basophils # (Auto) 0.0, Sodium Level 140, Potassium Level 3.8, Chloride Level 110, Carbon Dioxide Level 24, Anion Gap 6, Blood Urea Nitrogen 8, Creatinine 0.41, Estimat Glomerular Filtration Rate > 60, BUN/Creatinine Ratio 20, Glucose Level 114, Calcium Level 8.1 12/07/19 08:10: White Blood Count 6.4, Red Blood Count 3.53, Hemoglobin 9.2, Hematocrit 29, Mean Corpuscular Volume 83, Mean Corpuscular Hemoglobin 26, Mean Corpuscular Hemoglobin Concent 31, Red Cell Distribution Width 13.4, Platelet Count 470, Mean Platelet Volume 9.7, Sodium Level 139, Potassium Level 4.1, Chloride Level 109, Carbon Dioxide Level 25, Anion Gap 5, Blood Urea Nitrogen 8, Creatinine 0.43, Estimat Glomerular Filtration Rate > 60, BUN/Creatinine Ratio 19, Glucose Level 104, Calcium Level 8.2, Corrected Calcium 9.6, Total Bilirubin 0.1, Aspartate Amino Transf (AST/SGOT) 17, Alanine Aminotransferase (ALT/SGPT) 33, Alkaline Phosphatase 65, Total Protein 4.5, Albumin 2.2 12/09/19 08:40: White Blood Count 7.3, Red Blood Count 3.68, Hemoglobin 9.6, Hematocrit 30, Mean Corpuscular Volume 82, Mean Corpuscular Hemoglobin 26, Mean Corpuscular Hemoglobin Concent 32, Red Cell Distribution Width 13.7, Platelet Count 541, Mean Platelet Volume 9.3, Neutrophils (%) (Auto) 79, Lymphocytes (%) (Auto) 12, Monocytes (%) (Auto) 8, Eosinophils (%) (Auto) 2, Basophils (%) (Auto) 0, Neutrophils # (Auto) 5.8, Lymphocytes # (Auto) 0.8, Monocytes # (Auto) 0.6, Eosinophils # (Auto) 0.1, Basophils # (Auto) 0.0, Sodium Level 139, Potassium Level 3.7, Chloride Level 107, Carbon Dioxide Level 25, Anion Gap 7, Blood Urea Nitrogen 9, Creatinine 0.42, Estimat Glomerular Filtration Rate > 60, BUN/Creatinine Ratio 21, Glucose Level 96, Calcium Level 8.6, Corrected Calcium 9.8, Total Bilirubin 0.2, Aspartate Amino Transf (AST/SGOT) 19, Alanine Aminotransferase (ALT/SGPT) 27, Alkaline Phosphatase 72, Total Protein 5.1, Albumin 2.5 Discussion & Recommendations Patient had ethical committee discussion Discharge Home Medications: Active Scripts Active Pepcid (Famotidine) 20 Mg Tablet 20 Mg PO BID Methimazole 5 Mg Tablet 5 Mg PO BID Prednisone 20 Mg Tab 20 Mg PO DAILY@0700 4 Days Risperidone 1 Mg Tablet 1 Mg PO BID Acetaminophen 500 Mg Tablet 500 Mg PO Q6H PRN 30 Days Propranolol HCl 20 Mg Tablet 60 Mg PO Q6HR 30 Days HOLD FOR hr <60 AND SBP <100 Instructions to patient/family Please see electronic discharge instructions given to patient. Clinical Quality Measures DVT/VTE Risk/Contraindication: Risk Factor Score Per Nursin RFS Level Per Nursing on Admit: 4+=Very High MARICRUZ VENTURA DO Dec 10, 2019 07:33
--- NOTE | 2019-12-12 00:42 | Physician Query Clarification ---
PQ-Further Specificity Admission/Discharge Admission Date: Nov 24, 2019 at 20:50 Discharge Date: Dec 09, 2019 at 15:31 The medical record reflects the following clinical scenario: History/Risk Factors: Cachexia Multiple sclerosis and Neglected spouse Sinus tachycardia due to hyperthyroidism and cachexia/malnutrition Clinical Findings: Lab - Albumin -2.2 and Total protein 4.5 - on 12/07/2019 Cachectic, BMI 14.04 Treatment: IVF - Lactated Ringer's Question: Can you further specify [Malnutrition] per the clinical indicators above? Please document a response in the Progress Notes or Discharge Summary. 1. Severe Malnutrition 2. Moderate Malnutrition 3 Mild Malnutrition 4. Other, with explanation of the clinical findings. 5 Clinically undetermined, no explanation for the clinical findings. PHYSICIAN RESPONSE Can you specify per above: 1 Please remember a lack of response to the above will prompt a phone page by CDI/Coding staff. In responding to this query, please exercise your independent professional judgment. The purpose of this communication is to more accurately reflect the complexity of your patients condition. The fact that a question is asked does not imply that any particular answer is desired or expected. Thank you for your timely response to this clarification. Requestors name: [Karime ] Phone # [[phone] ] THIS PHYSICIAN QUERY FORM IS A PERMANENT PART OF THE MEDICAL RECORD IZZY OSPINA Dec 12, 2019 00:42 MARICRUZ VENTURA DO Dec 17, 2019 07:42
--- NOTE | 2019-12-12 00:48 | Physician Query Clarification ---
IZZY OSPINA 12/12/19 0048: [id number] Principal Diagnosis Principal Diagnosis Document Diagnosis QUESTION: Please specify the condition(s) that was chiefly responsible for occa sioning the admission to the hospital after study/evaluation based on your medical judgment. Clinical Indicators/Findings On Admit/Eval/Treatment: ED note Cachexia Multiple sclerosis and Neglected spouse H&P Cachectic, BMI 14.04 Progress note Cardiology progress note on 12/05/2019 Sinus tachycardia due to hyperthyroidism and cachexia/malnutrition Cachexia- joint setter consulted, appreciate recs, weight increasing since admission Cardiology progress note on 11/25/2019 Sinus tachycardia likely due to severe systemic illness. Patient has severe hyperthyroidism which needs to be treated Question Chief Reason for Admission Aft: Based on the above documentation kindly specify the diagnosis occasioning the admission : 1. Hyperthyroidism 2. Adult Neglect 3. Other Specified ......... 4. Clinically unable to determine Stewarding Supervisor Note Stewarding Supervisor Note Please remember a lack of response to the above will prompt a phone page by CDI/coding staff. In responding to this query, please exercise your independent professional judgment. The purpose of this communication is to more accurately reflect the complexity of your patients condition. The fact that a question is asked does not imply that any particular answer is desired or expected. Thank you for your timely response to this clarification. Requestors name: [Karime ] Phone # [[phone] ] THIS PHYSICIAN QUERY FORM IS A PERMANENT PART OF THE MEDICAL RECORD MARICRUZ VENTURA DO 12/17/19 0745: [id number] Principal Diagnosis Principal Diagnosis Document Diagnosis Severe malnutrition. Positive methamphetamine. Hyperthyroid. Severe multiple sclerosis. Bipolar. Combination of all this Question Chief Reason for Admission Aft: Multiplicity of problems. See document diagnosis above. Severe malnutrition. Hyperthyroid. Positive methamphetamine. Severe multiple sclerosis. Bipolar IZZY OSPINA Dec 12, 2019 00:48 MARICRUZ VENTURA DO Dec 17, 2019 07:45
== END 2019-12-09 15:31 | disposition hospice, inpatient (51) | DRG 58 ==
LOC: EDUNIT# 19:35 → ER 19:36 → ICU 20:50 → 4TH 11-27 05:54
PROVIDERS: ADMIT Family Medicine; ATTEND Family Medicine
DX: G35 Multiple sclerosis (principal); E05.91 Thyrotoxicosis, unspecified with thyrotoxic crisis or storm; T74.01XA Adult neglect or abandonment, confirmed, initial encounter; R64 Cachexia; E46 Unspecified protein-calorie malnutrition; Z68.1 Body mass index [BMI] 19.9 or less, adult; F15.20 Other stimulant dependence, uncomplicated; D64.9 Anemia, unspecified; I10 Essential (primary) hypertension; L89.219 Pressure ulcer of right hip, unspecified stage; L89.159 Pressure ulcer of sacral region, unspecified stage; F31.9 Bipolar disorder, unspecified; F20.9 Schizophrenia, unspecified; R32 Unspecified urinary incontinence; R29.6 Repeated falls
CPT/HCPCS: 36415; 36556; 51702; 71045; 80048; 80053; 80306; 81000; 83605; 83735; 84100; 84439; 84443; 84481; 84484; 84703; 85007; 85025; 85027; 85610; 87040; 87081; 93005; 93306; 94760; 96361; 96374; 96375; 96376